=== PATIENT | female | born 1945 | race Caucasian/White ===

== ENCOUNTER 2024-06-18 14:36 | Inpatient (IN) | payer OTHER, SELFPAY ==
[2024-06-18] VITALS (29 sets, daily range): BP systolic 78–145; BP diastolic 33–132
[2024-06-18 12:12] LABS: ALT (SGPT) 27 U/L (0-35); AST (SGOT) 51 U/L (14-36); Albumin 3.1 g/dl (3.5-5.0); Alkaline Phosphatase 244 U/L (38-126); Blood Urea Nitrogen 37 mg/dl (7-17); Carbon Dioxide 23 mmol/L (22-30); Chloride 110 mmol/L (98-107); Glucose 110 mg/dl (70-99); Sodium 142 mmol/L (135-145); Total Bilirubin 0.5 mg/dl (0.2-1.3); Total Protein 6.5 g/dl (6.3-8.2); eGFR 45.76
--- NOTE | 2024-06-18 12:42 | ED.GENMED ---
History of Present Illness
General
Chief Complaint: Vomiting Blood
Source: patient and spouse
Exam Limitations: none
Time Seen by Provider: 06/18/24 12:31
Nursing documentation reviewed up to this point in time: agreed with
History of Present Illness
History of Present Illness:
79-year-old female presents emergency department complaining of vomiting blood and dark black stool. Patient has primary biliary cirrhosis. She is followed at [facility]. She presents via EMS.
Past History
Past History
ED Past Medical History: Hypothyroidism and Other (Primary biliary cirrhosis, GI bleed, Crohn's disease)
Social History
Tobacco: Non-smoker
Alcohol: None
Drug: None
Personal:
Living: with family
Review of Systems
Review of Systems
Allergies reviewed?: Yes
All Other Systems: Not applicable
Constitutional: Reports no symptoms
EENT: Reports no symptoms
Respiratory: Reports no symptoms
Cardiac: Reports no symptoms
ABD/GI: Reports vomiting and black stools
: Reports no symptoms
Musculoskeletal: Reports no symptoms
Skin: Reports no symptoms
Neurological: Reports no symptoms
Endocrine: Reports no symptoms
Hematologic/Lymphatic: Reports no symptoms
Psychiatric: Reports no symptoms
Phy Exam
Physical Exam
Physical Exam:
Physical Exam
General: Hypotension, afebrile
Neck: supple. no meningeal signs. normal posterior pharynx
Heart: s1/s2 regular rate and rhythm, no murmur. equal radial
pulses.
HEENT: Pupils equal round reactive to light, EOMI, pale oral mucous membranes
Lungs: no acute respiratory distress. clear bilaterally
Abdomen: normal bowel sounds. not tender. no CVAT
Neuro: alert and oriented. no focal neurological deficits cranial nerves II through XII intact
Skin: no rash, pale
Psychiatric: well kept. interactive and cooperative
Extremities: no edema. no calf tenderness. negative homans. good distal pulses
Course
Orders/Labs/Results
Orders:
Orders
06/18/24 Lunch
NPO
Allow oral meds: No
Allow clear liquids: No
06/18/24 11:30
Electrocardiogram (*1) Urgent
Reason for Study: Abdominal Pain
EKG- Treatment ONCE
06/18/24 11:41
Type And Crossmatch [Type+Screen] Urgent
Complete Blood Count/With Diff Urgent
Comprehensive Metabolic Panel Urgent
06/18/24 12:41
IV Insert/Care/Rem.- Treatment PRN
0.9% Sodium Chloride 1000 ml [Nss] 1,000 ml IV BOLUS
06/18/24 12:45
ABO2 Urgent
BBK Wristband Number:
Associate notified that ABO2 has been ordered: [id number]
Date: 06/18/24
Time: 12:14
House Painter ID: [id number]
PTT Urgent
Prothrombin Time Urgent
06/18/24 12:49
Octreotide [Sandostatin] 50 mcg IV NOW STA
Pantoprazole 80 mg/100 ml Nss [Protonix] 80 mg in 100 ml IV NOW
Pantoprazole [Protonix IV] 80 mg IV NOW STA
06/18/24 12:56
Octreotide Acetate [Sandostatin] 600 mcg 0.9% Sodium Chloride 500 ml [Nss] 500 ml IV NOW
06/18/24 12:58
Ondansetron Injectable [Zofran] 4 mg IV NOW STA
06/18/24 13:13
Blood Bank Products [* Blood Bank Products] Urgent
'valdemar Orders: 1 unit prbcs
Blood Bank Products: *Packed RBC Leuko(PRBC's)
Quantity: 1
Transfuse Today: Yes
Reason: Bleeding
06/18/24 14:11
Admit/Transfer Patient As Directed
Co-Sign Provider:
Level of Care: Inpatient admission
Assign to:: ICU
Physician / Group: Dr. Savage
Diagnosis: Upper GI Bleed, Primary Biliary Cirrhosis
Reason for Hospitalization: Upper GI bleed, End stage cirrhosis
Expected length of stay greater than two midnights?: Yes
ELOS- Estimated Length of Stay in days: 3
I certify the patient meets the requirements for IP care: Yes
PRN Pain Medication Management As Directed
May give lesser potent ordered pain med per pt: Yes
preference::
Protocol:: Medication orders for pain may be administered in a
manner that supports deferring to patient preference
when the pt is:
- Requesting an ordered lesser potent pain medication.
Least to most potent pain medications are defined
as: acetaminophen < NSAID < tramadol < opioids
(morphine, oxycodone, hydromorphone).
- Requesting a lesser dose of the same medication IF
ORDERED.
- Requesting a less intrusive route of administration
if both routes are prescribed by the provider (PO <
IV).
06/18/24 14:21
Code Status As Directed
Resuscitation Status: Limited DNR
Limited DNR: -No intubation
06/18/24 16:26
H&H Q8H
0.9% Sodium Chloride 1000 ml [Nss] 1,000 ml IV 100 mls/hr
06/18/24 16:26
GASTROINTESTINAL CONSULT Routine
Consulting Provider: Alexander Ashley
Was physician already notified: Yes
Activity As Directed
Activity Level: As Tolerated
INT (Intravenous Needle Therapy) As Directed
Comment: Place 2 IV catheters of the largest bore possible until stable
Orthostatic Vital Signs As Directed
Orthostatic VS Frequency: Now
Comment: then every four hours for twenty-four hours
Pneumatic Compression Sleeves As Directed
Type: Knee high
Vital Signs As Directed
Frequency: Per unit guidelines
DX Deep Vein Thrombosis Video Routine
06/18/24 22:00
Pantoprazole 80 mg/100 ml Nss [Protonix] 80 mg in 100 ml IV Q10H
06/19/24 00:26
H&H Q8H
06/19/24 06:00
Complete Blood Count/With Diff IN AM
Comprehensive Metabolic Panel IN AM
Abnormal Lab Results
06/18/24
11:41
WBC 10.9 H 10^3/uL
(4.8-10.8)
RBC 2.32 L 10^6/uL
(4.20-5.40)
Hgb 6.4 L* g/dL
(12.0-16.0)
Hct 22.4 L %
(37.0-47.0)
MCHC 28.6 L g/dL
(33.0-37.0)
RDW 20.3 H %
(11.5-14.5)
MPV 11.7 H fL
(7.4-10.4)
Abs Immat Gran (auto) 0.1 H 10^3/uL
(0-0.05)
Absolute Neuts (auto) 8.3 H 10^3/uL
(1.4-6.5)
Immature Gran % 0.6 H %
(0-0.5)
Neutrophils % 76.3 H %
(42.2-75.2)
Lymphocytes % 17.0 L %
(20.5-51.1)
Chloride 110 H mmol/L
(98-107)
BUN 37 H mg/dl
(7-17)
Creatinine 1.2 H mg/dL
(0.6-1.0)
Glucose 110 H mg/dl
(70-99)
AST 51 H U/L
(14-36)
Alkaline Phosphatase 244 H U/L
(38-126)
Albumin 3.1 L g/dl
(3.5-5.0)
Crossmatch IS Only See Detail
06/18/24 11:41
06/18/24 11:41
Vital Signs
Initial and Last Documented VS:
Initial Vital Signs
BP
80/42
06/18/24 11:32
Last Documented Vital Signs
Temp Pulse Resp BP Pulse Ox
97.7 F 70 19 131/66 99
06/18/24 16:40 06/18/24 16:37 06/18/24 16:37 06/18/24 16:37 06/18/24 15:30
MDM/Problems Addressed
Differential Diagnosis Includes:
GI bleed, cirrhosis
MDM/Problems Addressed:
79-year-old female with upper GI bleed, end-stage cirrhosis. Anemia. Protonix, packed red blood cells, Zofran, IV fluids and octreotide ordered.
Chronic conditions affecting care: Other (Primary biliary cholangitis)
Acute Exacerbation and/or Progression of Chronic Illness: Other (Primary biliary cholangitis)
*Pulse Oximetry
Patient hypoxic: no
*EKG
Interpreted by ED Provider?: Yes
EKG Intrepretation Date: 06/18/24
EKG Intrepretation Time: 11:34
Interpretation: abnormal
Comparison EKG: no comparison EKG present
Heart Rate: 75
Rate: normal
Rhythm: sinus
[place]: left axis deviation
Interval: normal interval
QRS Pattern: normal QRS
Ischemia: no ischemia
*Tactical Air Control Party Interpretation
Rate: normal
Interpretation: normal
Heart Rate: 74
Rhythm: sinus
*Critical Care Note
Total Time (30-74mins, 75-104mins- exclusive of procedures): 30
comment:
Critical care statement: A total of 30 minutes of critical care time was provided for this patient. This includes management of unstable vital signs, evaluation of the patient at bedside, reviewing the patient's pertinent medical records, discussion
with consultants, review of old EKGs and review of pertinent medical records. This time with separate from time utilized to perform the aforementioned documented procedures but again
Patient Management
Social determinants of health affecting care: Living situation
Discussion with other providers: Hospitalist
Escalation/DeEscalation of care consider admission/obs:
admit indicated
ED Attending Note
-
Portions of this chart may have been created with voice recognition software.� Occasional wrong word or��sound alike� substitutions may have occurred due to the inherent limitations of voice recognition software.
Discharge Plan
Departure
Patient Disposition: Admit
Date of Disposition: 06/18/24
Time of Disposition: 13:02
Admit to: ICU
Presentation/result/management discussed w/ accepting MD/DO: Hospitalist
Patient with high blood pressure during this ER visit?: No
Condition: Fair
Discharge Problem:
Acute upper gastrointestinal bleeding, Primary biliary cholangitis
Interventions
Interventions:
*Risk Screen - Suicide Last Done: 06/18/24 11:33
*General Assessment Last Done: 06/18/24 11:33
*Neglect/Abuse Screening Last Done: 06/18/24 11:33
*ED COVID-19 Vaccine History Last Done: 06/18/24 11:33
*Nursing Disposition Last Done: 06/18/24 16:20
TS-Znrclf-Hhkzozcwtt Assessment Last Done: 06/18/24 12:30
ED- Cardiac Assessment Last Done: 06/18/24 12:30
ED- Pulmonary Assessment Last Done: 06/18/24 12:30
Discharge Date and Time
Discharge Date/Time: 06/18/24 16:21
[2024-06-18] MEDS: NSS 1000 IV ×2 (12:48→17:07)
[2024-06-18 12:57] LABS: % Basophils 0.5 % (0-2); % Eosinophils 0.4 % (0-6); % Immature Granulocytes 0.6 % (0-0.5); % Monocytes 5.2 % (1.7-9.3); % Neutrophils 76.3 % (42.2-75.2); Absolute Basophils 0.1 10^3/uL (0-0.2); Absolute Immature Granulocytes 0.1 10^3/uL (0-0.05); Absolute Lymphocytes 1.9 10^3/uL (1.2-3.4); Absolute Monocytes 0.6 10^3/uL (0.1-0.6); Absolute Neutrophils 8.3 10^3/uL (1.4-6.5); Hematocrit 22.4 % (37.0-47.0); Hemoglobin 6.4 g/dL (12.0-16.0); Mean Corp Hgb Conc. 28.6 g/dL (33.0-37.0); Mean Corpuscular Hgb 27.6 pg (27.0-31.0); Mean Corpuscular Volume 96.6 fL (81.0-99.0); Mean Platelet Volume 11.7 fL (7.4-10.4); Nucleated Red Blood Cells % 0 %; Platelet Count 158 10^3/uL (130-400); Red Blood Cell Count 2.32 10^6/uL (4.20-5.40); Red Cell Dist. Width 20.3 % (11.5-14.5); White Blood Cell Count 10.9 10^3/uL (4.8-10.8)
[2024-06-18 13:05] LABS: INR 1.05
[2024-06-18 13:06] LABS: APTT 26.6 Sec (23.4-35.0)
[2024-06-18 13:12] LABS: Anisocytosis 1+; Hypochromasia 2+; Normal RBC Morphology No; Polychromasia 2+
[2024-06-18 13:13] LABS: Stomatocytes 2+
[2024-06-18] MEDS: PROTONIX 100 IV ×2 (13:16→21:24)
[2024-06-18] MEDS: PROTONIX IV 80 MG IV (13:17)
[2024-06-18] MEDS: ZOFRAN 4 MG IV (13:17)
[2024-06-18] MEDS: SANDOSTATIN 50 MCG IV (13:17)
[2024-06-18] MEDS: SANDOSTATIN 500.6 MCG IV ×2 (13:27→23:43)
--- NOTE | 2024-06-18 15:16 | CON.GI ---
Addendum entered and electronically signed by Alexander Ashley DO 06/18/24 17:13:
I saw and examined the patient.
The CALENDAR CONTROL CLERK BLOOD BANK's note was reviewed and I agree with the note.
Comment: Ms Mccarthy is an 79 y.o female with past medical history of decompensated PBC (records are limited- known to [facility]) with decompensations including ascites, HE, and PHG/GAVE along with hx of pleural effusions (unclear if related to
prior hepatic hydrothorax?), and chronic hypotension (on midodrine) who presented to the ED with hematemesis and melena. Records are very limited however patient underwent a recent EGD 03/2024 where she was found to have oozing after a clip was
placed at the GE junction. There was no reported EV, GV or duodenal varices, only noting PHG and GAVE. Upon discussions with [facility], there were discussions about a possible TIPS but concern about post-TIPS HE. Of note, she was felt not to
be an OLT candidate and follows with Dr. Quiroz. Otherwise, she denies any NSAIDs or antiplatelets/anticoagulants. Denies prior episodes of hematemesis in the past. Otherwise, no other abdominal pain or fevers/chills. She had two episodes of
hematemesis earlier today along with melena. Etiology concerning for variceal UGIB versus bleeding at GE junction (given her prior history although details are unclear regarding this). Labs on admission notable for a MELD 3.0 of 10 and Hgb 6.4 and
plts of 158. Would benefit from an urgent EGD today for further evaluation.
Recommendations:
- Ensure two large bore IVs at all times
- Keep strict NPO
- F/u post-transfusion CBC after 1 uPRBC
- Trend Hgb with serial CBC, avoid over transfusions given hx of cirrhosis
- Obtain daily MELD 3.0 labs- CMP, CBC, INR
- IV PPI gtt x 72 hrs
- IV Octreotide x 72 hrs
- Start IV Ceftriaxone 1 gm q daily
- Give IV Reglan to improve gastric emptying prior to endoscopy to clear stomach
- Plan for urgent EGD later this evening, 06/18/24, for further evaluation
- Avoidance of all antihypertensives and anticoagulants
- Will attempt to obtain OSH records regarding her history of PBC and prior EGDs
- Rest of care as outlined below and as per primary ICU team
Please do not hesitate to call for any further questions. See same day EGD procedure report later this evening for additional findings/recommendations.
Addendum entered and electronically signed by JOHNY Murray 06/18/24 16:07:
I spoke to Graciela Meadows PA-C ([facility]). Patient has Hx of Decompensated Primary Biliary Cirrhosis with hx of Pleural effusions, ascites (not requiring recent paracentesis) and mild hepatic encephalopathy (supposed to be on Xifaxan, as it
was felt that she was too frail to tolerate Lactulose and ambulation). Patient had chronic hypotension with jneed to be on Midodrine. She has a Hx of GIB with Portal Gastropathy, GAVE and 'ooze' with some bleed after clip placed at GE Junction. Last
EDG performed in March at [place]. In the past TIPS was considered however bleeding improved and could increase encephalopathy. Patient is not a transplant candidate. Patient has appointment with Dr. Quiroz next week.
Original Note:
Consultation
-
Date/Time Consultation Requested: 06/18/24 1500
Date/Time Consultation Performed: 06/18/24 1515
Requesting Provider: Dr. Good
Performing Provider: Dr. Ashley/JOHNY Cristina
Reason for Consultation: Upper GI Bleed/PBC
Medical History
Chief Complaint / HPI
Chief Complaint: hematemesis, melena
History of Present Illness:
79 y/o female with PMH of hypothyroid and PBC recently saw Graciela Meadows PA-C at [facility], also followed by Dr. Walls at [facility] who presents to ER with hematemesis and melena. Asked to evaluate for the same. Patient states
that she does not have Crohns disease as documented in ER records. She does admit to prior GI Bleed at [facility] over the summer but does not recall results of this. I am trying to obtain records of this. I have reached out to [facility] and to
Dr. Walls at this time. Patient states that this am she awoke with acute onset of nausea with vomiting of bright red blood followed by multiple episodes of melena. She had nothing to eat or drink today. She denies any F, C, abdominal pain,
dysphagia, odynophagia, early satiety or unintentional weight loss. She is hypotensive currently with BP 74/52. PRBC are currently hanging as is Octreotide and pantoprazole drips. She is not tachycardic as this time. She denies any CP, SOB or
dizziness. WBC 10.9, Hgb 6.4, Hct 22.4, PLT 158, PT 14.0, INR 1.05, Na 142, K+ 5.0, BUN 37, Creat 1.2, Gluc 110, TBili, 0.5, AST 51, ALT 27, ALk Phos, 244. She is admitted to ICU for further care. Plan on EGD today.
Past Medical History
Past Medical History: Hypothyroidism and Other (Primary Biliary Cirrhosis)
Social History
Tobacco: Non-Smoker
Alcohol: None
Drug: None
Personal:
Living: With Family
Family History
Family History: Other (No family hx GI malignancy or IBD)
Allergies / Home Medications
Allergy/AdvReac Type Severity Reaction Status Date / Time
No Known Allergies Allergy Unverified 06/18/24 12:43
�Medication �Instructions �Recorded
Ferrous Glycinate 28 mg PO DAILY 06/18/24
acetaminophen 325 mg tablet 650 mg PO Q4HPRN PRN mild pain 06/18/24
(Tylenol)
calcium 600 mg (as 2 tab PO DAILY 06/18/24
carbonate)-vitamin D3 10 mcg (400
unit) tablet (Calcium 600 + D(3))
carboxymethylcellulose 0.5 1 drp BOTH EYES TID 06/18/24
%-glycerin 0.9 % eye drops
(Refresh Optive)
furosemide 40 mg tablet (Lasix) 40 mg PO DAILY 06/18/24
levocetirizine 5 mg tablet 5 mg PO HS 06/18/24
levothyroxine 75 mcg tablet 75 mcg PO DAILY 06/18/24
(Synthroid)
magnesium oxide 250 mg PO DAILY 06/18/24
midodrine 5 mg tablet 5 mg PO BID 06/18/24
pantoprazole 40 mg tablet,delayed 40 mg PO DAILY 06/18/24
release (Protonix)
ropinirole 1 mg tablet 1 mg PO HS 06/18/24
spironolactone 100 mg tablet 100 mg PO DAILY 06/18/24
therapeutic multivitamin 1 tab PO DAILY 06/18/24
tramadol 50 mg tablet 50 mg PO BIDPRN PRN moderate pains 06/18/24
ursodiol 500 mg tablet 500 mg PO TID 06/18/24
Review of Systems
-
All other systems: A 12 pt ROS was Negative except as stated above in HPI
Vital Signs
Temp Pulse Resp BP Pulse Ox
97.5 F 64 15 93/39 98
06/18/24 14:27 06/18/24 14:27 06/18/24 14:27 06/18/24 14:27 06/18/24 14:27
Physical Exam
Exam
General: No Apparent Distress
HEENT: Anicteric
Respiratory: Clear
Cardiac: Regular Rhythm
GI: Soft, Non Tender, Non Distended and Normal Bowel Sounds
Musculoskeletal: No Edema
Skin: Warm and Dry
Neuro: AO x 3
Psych: Calm
Results
WBC 10.9 10^3/uL (4.8-10.8) H 06/18/24 11:41
Hgb 6.4 g/dL (12.0-16.0) L* 06/18/24 11:41
Hct 22.4 % (37.0-47.0) L 06/18/24 11:41
MCV 96.6 fL (81.0-99.0) 06/18/24 11:41
Plt Count 158 10^3/uL (130-400) 06/18/24 11:41
Absolute Neuts (auto) 8.3 10^3/uL (1.4-6.5) H 06/18/24 11:41
PT 14.0 Sec (11.4-14.6) 06/18/24 12:45
INR 1.05 06/18/24 12:45
APTT 26.6 Sec (23.4-35.0) 06/18/24 12:45
Sodium 142 mmol/L (135-145) 06/18/24 11:41
Potassium 5.0 mmol/L (3.5-5.1) 06/18/24 11:41
Chloride 110 mmol/L (98-107) H 06/18/24 11:41
Carbon Dioxide 23 mmol/L (22-30) 06/18/24 11:41
BUN 37 mg/dl (7-17) H 06/18/24 11:41
Creatinine 1.2 mg/dL (0.6-1.0) H 06/18/24 11:41
Calcium 9.0 mg/dl (8.4-10.2) 06/18/24 11:41
Total Bilirubin 0.5 mg/dl (0.2-1.3) 06/18/24 11:41
AST 51 U/L (14-36) H 06/18/24 11:41
ALT 27 U/L (0-35) 06/18/24 11:41
Alkaline Phosphatase 244 U/L (38-126) H 06/18/24 11:41
Diagnostic Image Results:
Prior GI Procedures:
EGD: Patient states she had EGD at [facility] over the summer.
Colonoscopy: Patient states she had colonoscopy over the summer
Assessment / Plan
-
79 y/o female with PMH of hypothyroid and PBC recently saw Graciela Meadows PA-C at [facility], also followed by Dr. Walls at [facility] who presents to ER with hematemesis and melena. Asked to evaluate for the same. Patient states
that she does not have Crohns disease as documented in ER records. She does admit to prior GI Bleed at [facility] over the summer but does not recall results of this. I am trying to obtain records of this. I have reached out to [facility] and to
Dr. Walls at this time. Patient states that this am she awoke with acute onset of nausea with vomiting of bright red blood followed by multiple episodes of melena.Patient denies any NSAID use. She is on Pantoprazole daily. She is hypotensive
currently with BP 74/52. PRBC are currently hanging as is Octreotide and pantoprazole drips. She is not tachycardic as this time. She denies any CP, SOB or dizziness. WBC 10.9, Hgb 6.4, Hct 22.4, PLT 158, PT 14.0, INR 1.05, Na 142, K+ 5.0, BUN 37,
Creat 1.2, Gluc 110, TBili, 0.5, AST 51, ALT 27, ALk Phos, 244. She is admitted to ICU for further care. Plan on EGD today.
Impression:
Acute Upper GI Bleed
Primary Biliary Cirrhosis
Plan:
-NPO
-Transfuse to keep Hgb > 7
-Continue Octreotide gtt
-Continue Protonix gtt
-Give dose of Reglan 5 mg IV x one to promote gastric clearing
-Ensure 2 large bore IV access at all times
-Give dose Ceftriaxone 1 gm now,
-Will obtain US to eval for ascites tomorrow
-EGD today
-Trend Hgb q 6 hrs.
-Daily CBC, CMP, INR
-Obtain records from [facility], Dr. Walls ( [facility]) and [facility] (Graciela Meadows PA-C)
-Further recommendations to be forthcoming
-
-
Thank you for consultation and allowing me to participate in the patient's care. Please call the auto collision repair instructor GI physician during the after hours with any questions or concerns.
--- NOTE | 2024-06-18 16:50 | PTCARENOTE ---
arrived to ICU via ED stretcher. accompanied. see VS, admission assessment, no bleeding, pt in no acute distress. protonix and sandostatin infusing. 1st unit PC completed. complete CHG bath.
[2024-06-18] MEDS: REGLAN 10 MG IV (17:06)
[2024-06-18] MEDS: STERILE WATER FOR INJECTION 10 ML IV (17:08)
[2024-06-18] MEDS: ROCEPHIN 1000 MG IV (17:08)
--- NOTE | 2024-06-18 17:08 | HPS.HSE ---
Addendum entered and electronically signed by Mackenzie Savage MD 06/18/24 17:54:
I personally performed a history and physical exam of the patient and discussed management with Dr. Cunningham. I reviewed the resident's note and agree with the documented findings and plan of care HPI/CC.
GENERAL: well developed, well nourished, pale appearing female in no apparent distress
HEENT: NC/AT--no O2 in place--pale conjunctiva
HEART: regular rate and rhythm, +S1, +S2
LUNGS : decreased breath sounds bilaterally
ABDOM: soft, nontender, nondistended, + bowel sounds
EXT: no cyanosis, clubbing, or edema
NEUROLOGIC: grossly intact
acute blood loss anemia--likely due to acute GI blood loss-- transfuse 2 units pRBC--admit to ICU--BP 80s systolic (hypotension)--likely runs low with cirrhosis but is responding to IVF (100s systolic)
acute GI blood loss--likely upper with hematemesis and intermittent black stools--? ulcer, varices, etc--NPO/IVF--GI consult--PPI drip, octreotide--EGD as per GI--hold all oral meds
cirrhosis (non-alcoholic) with primary biliary cirrhosis (h/o of Crohn's)--not enough ascites to tap but agree with abx coverage for SBP prophylaxis (rocephin/reglan)--sees hepatology at [place]--has appointment with Dr. Quiroz Tuesday--will not
make--trend LFTs
CKD stage 3--creat baseline unknown as pt never here before--obtain records--hold meds given NPO status--follow with IVF/pRBC
hypothyroid -- holding synthroid for now
DVT proph
code status--LIMITED DNR
Original Note:
Family Physician
-
Family Physician: Dr. Nelson Narayan
Chief Complaint
-
Vomiting and Black Stools
History of Present Illness
This is a 79-year-old female patient with PMH of hypothyroidism primary biliary cholangitis, CKD, hx of pleural effusions, Crohn's disease who presented to the ED with concerns of vomiting and black stools. She states that this morning she had an
episode of vomiting where she had a large amount of blood. She had been having alternating melena along with normal bowel movements for the past 1 year. She admits to having dizziness, nausea and fatigue but no CP, abdominal pain, palpitations or
fevers. She has had similar's symptoms last January where she was admitted initially at [facility]. She states that she had a EGD this year and was not told of any concerns for varices. She currently follows with GI at [facility] (
[facility]).
Medical History
Past Medical History
Past Medical History: Reports Hypothyroidism and Other (CKD, primary biliary cholangitis, Hx of pleural effusion, Crohn's disease)
Past Surgical History: Reports Appendectomy
Social History
Tobacco: Former Smoker (Quit 20 years ago, used to smoke 1 pack a day)
Alcohol: None
Drug: None
Personal:
Living: With Family
Family History
Family History: Other (Mother: Ovarian cancer)
Allergies / Home Medications
Allergies reflects when Allergies were last updated in [employer].
Home Medications with original date entered in [employer]
Allergy/Medication List:
Allergies
Allergy/AdvReac Type Severity Reaction Status Date / Time
No Known Allergies Allergy Unverified 06/18/24 12:43
Home Medications
Ferrous Glycinate 28 mg PO DAILY 06/18/24
acetaminophen 325 mg tablet (Tylenol) 650 mg PO Q4HPRN PRN mild pain 06/18/24
calcium 600 mg (as carbonate)-vitamin D3 10 mcg (400 unit) tablet (Calcium 600 + D(3)) 2 tab PO DAILY 06/18/24
carboxymethylcellulose 0.5 %-glycerin 0.9 % eye drops (Refresh Optive) 1 drp BOTH EYES TID 06/18/24
furosemide 40 mg tablet (Lasix) 40 mg PO DAILY 06/18/24
levocetirizine 5 mg tablet 5 mg PO HS 06/18/24
levothyroxine 75 mcg tablet (Synthroid) 75 mcg PO DAILY 06/18/24
magnesium oxide 250 mg PO DAILY 06/18/24
midodrine 5 mg tablet 5 mg PO BID 06/18/24
pantoprazole 40 mg tablet,delayed release (Protonix) 40 mg PO DAILY 06/18/24
ropinirole 1 mg tablet 1 mg PO HS 06/18/24
spironolactone 100 mg tablet 100 mg PO DAILY 06/18/24
therapeutic multivitamin 1 tab PO DAILY 06/18/24
tramadol 50 mg tablet 50 mg PO BIDPRN PRN moderate pains 06/18/24
ursodiol 500 mg tablet 500 mg PO TID 06/18/24
Review of Systems
-
Constitutional: Denies Fever
EENT: Reports No Symptoms
Respiratory: Reports No Symptoms
Cardiac: Reports No Symptoms
Abdomen/GI: Reports Nausea, Vomiting and Black Stools; Denies Abdominal Pain
: Reports No Symptoms
Musculoskeletal: Denies Edema
Skin: Reports No Symptoms
Neurological: Reports Dizzy; Denies Headache
Psych: Reports Calm
Physical Exam
Vital Signs
Vital Signs
Temp Pulse Resp BP Pulse Ox
97.7 F 70 19 131/66 99
06/18/24 16:37 06/18/24 16:37 06/18/24 16:37 06/18/24 16:37 06/18/24 15:30
Physical Exam
General: No Apparent Distress
HEENT: NormoCephalic
Respiratory: Clear
Cardiac: S1/S2 and Regular Rhythm; No Murmur
GI: Soft, Non Tender and Non Distended
Musculoskeletal: No Edema
Skin: Warm and Dry
Neuro: Awake, Alert and Oriented
Psych: Calm
Laboratory Results
-
06/18/24 11:41
Laboratory Results
PT 14.0 Sec (11.4-14.6) 06/18/24 12:45
INR 1.05 06/18/24 12:45
APTT 26.6 Sec (23.4-35.0) 06/18/24 12:45
Total Bilirubin 0.5 mg/dl (0.2-1.3) 06/18/24 11:41
AST 51 U/L (14-36) H 06/18/24 11:41
ALT 27 U/L (0-35) 06/18/24 11:41
Alkaline Phosphatase 244 U/L (38-126) H 06/18/24 11:41
Impression/Plan
-
IMPRESSION: This is a 79-year-old female patient with PMH of hypothyroidism primary biliary cholangitis, CKD, hx of pleural effusions, Crohn's disease who presented to the ED with concerns of hematemesis and black stools.
PLAN:
#Acute Upper GI Bleed
-NPO
-Maintain two large bore IV
-Continue Pantoprazole gtt
-Continue Octreotide gtt
-Hb 6.4, s/p 1 unit transfused in ED
-Monitor H&H
-Consulted GI
-Ceftriaxone and Reglan initiated as per GI
-Planned for EGD later this evening
-Hold Midodrine
#Cirrhosis-Primary Biliary Cholangitis
-Follows with GI Hepatology at [facility]
-Hold lasix, spironolactone and ursodiol as pt is NPO
-US abd scheduled for tomorrow for ascites assessment
-Elevated AST and ALP
-Tylenol PRN for pain
-Follow CMP
#CKD3a
-Cr 1.2, baseline unknown
#Hypothyroidism
-Hold synthroid as NPO order
DVT: SCDs
CODE: Limited DNR (after discussion with patient and at bedside)
--- NOTE | 2024-06-18 17:10 | CON.INTV ---
Consultation
Consultation Request
Date/Time Consultation Requested: 06/18/2024
Date/Time Consultation Performed: 06/18/2024
Requesting Provider: Dr. Savage
Performing Provider: Dr. Hussein
Reason for Consultation: Acute UGIB
Medical History
-
Chief Complaint: Vomiting blood
History of Present Illness:
79-year-old female with a past medical history of Crohn's disease, PBC, hypothyroidism, HAGAN cirrhosis, CKD and former tobacco use disorder who presents with vomiting blood and black stools. Morning prior to arrival she had an episode of vomiting
where she had a large amount of blood that was seen. She has been having alternating melena along with normal bowel movements for the past year. She has been having dizziness nausea and fatigue but no chest pain and no syncopal episodes. She has
had an EGD earlier this year and was not told that she has any varices. She follows with gastroenterology at [place] with Dr. Quiroz. Initially in the ER she was afebrile to 97.7 �F, pulse rate 72, breathing at 16 breaths/min, BP 80/42 and
saturating 94% on room air. Labs showed leukocytosis to 10.9, anemia to 6.4, INR 1.05, creatinine 1.2, BUN 37, AST 51, and ALP 244. In the ER she was given 1 L NS 0.9%, octreotide, Protonix and 4 mg Zofran. Due to hematemesis she was admitted to
the ICU and Police Service Technician services consulted for additional management/recommendations. Gastroenterology also consulted and she is awaiting an endoscopy later this evening.
When I saw the patient she was resting in bed in no acute distress. Heart rate 76, saturating 97% on room air and BP 102/69. She says she was told she had Crohn's disease from the doctors at [facility]. She says that she has been pooping blood
'lately.' She says her has Crohn's but she does not have a family history of inflammatory bowel disease. She currently denies abdominal pain, nausea, chest pain, SOB, fevers or chills.
PMHx: Primary biliary cirrhosis, reported Hx of Crohn disease, HAGAN, hypothyroidism, CKD, history of pleural effusion, former tobacco use disorder
PShH: Appendectomy
Past Medical History
Past Medical History: Other (Above as per HPI)
Past Surgical History: Other (Above as per HPI)
Social History
Tobacco: Former Smoker (Quit 20 years ago, previously smoked 1 PPD)
Alcohol: None
Drug: None
Personal:
Living: With Family
Family History
Family History: Cancer (Mother: Ovarian cancer)
Allergies / Home Medications
Allergies
Allergy/AdvReac Type Severity Reaction Status Date / Time
No Known Allergies Allergy Unverified 06/18/24 12:43
Home Medications
�Medication �Instructions �Recorded �Confirmed �Last Taken �Type
Ferrous Glycinate 28 mg PO DAILY 06/18/24 06/18/24 06/17/24 History
acetaminophen 325 mg tablet 650 mg PO Q4HPRN PRN mild pain 06/18/24 06/18/24 06/15/24 History
(Tylenol)
calcium 600 mg (as 2 tab PO DAILY 06/18/24 06/18/24 06/17/24 History
carbonate)-vitamin D3 10 mcg (400
unit) tablet (Calcium 600 + D(3))
carboxymethylcellulose 0.5 1 drp BOTH EYES TID 06/18/24 06/18/24 06/17/24 History
%-glycerin 0.9 % eye drops
(Refresh Optive)
furosemide 40 mg tablet (Lasix) 40 mg PO DAILY 06/18/24 06/18/24 06/17/24 History
levocetirizine 5 mg tablet 5 mg PO HS 06/18/24 06/18/24 06/17/24 History
levothyroxine 75 mcg tablet 75 mcg PO DAILY 06/18/24 06/18/24 06/17/24 History
(Synthroid)
magnesium oxide 250 mg PO DAILY 06/18/24 06/18/24 06/17/24 History
midodrine 5 mg tablet 5 mg PO BID 06/18/24 06/18/24 06/17/24 History
pantoprazole 40 mg tablet,delayed 40 mg PO DAILY 06/18/24 06/18/24 06/17/24 History
release (Protonix)
ropinirole 1 mg tablet 1 mg PO HS 06/18/24 06/18/24 Unknown History
spironolactone 100 mg tablet 100 mg PO DAILY 06/18/24 06/18/24 06/17/24 History
therapeutic multivitamin 1 tab PO DAILY 06/18/24 06/18/24 06/17/24 History
tramadol 50 mg tablet 50 mg PO BIDPRN PRN moderate pains 06/18/24 06/18/24 06/16/24 History
ursodiol 500 mg tablet 500 mg PO TID 06/18/24 06/18/24 06/17/24 History
Review of Systems
-
History Source: Patient
All other systems: Negative unless noted
Vitals / Labs / Diagnostic Testing
Vital Signs
Temp Pulse Resp BP Pulse Ox
97.7 F 70 19 131/66 99
06/18/24 16:40 06/18/24 16:37 06/18/24 16:37 06/18/24 16:37 06/18/24 15:30
Lab Data
06/18/24 11:41
Laboratory Results
06/18/24
12:45
PT 14.0
INR 1.05
APTT 26.6
Diagnostic Testing:
Physical Exam
-
HEENT: Normocephalic and Anicteric
Cardiovascular: S1/S2 and Peripheral Edema (negative)
Respiratory: Wheeze (negative), Rales (negative), Rhonchi (negative) and Non-Labored Respirations
GI: Soft, Non Distended and Normal Bowel Sounds
Neurology: AO x 3 and Tremors (negative)
Skin: Warm and Dry
General: Respiratory Distress (negative), Comfortable, Fever (negative), Chills (negative) and Sweats (negative)
Assessment
-
Assessment: 79-year-old female with a past medical history of Crohn's disease, PBC, hypothyroidism, HAGAN cirrhosis, CKD and former tobacco use disorder who presents with vomiting blood and black stools. Morning prior to arrival she had an episode
of vomiting where she had a large amount of blood that was seen. She has been having alternating melena along with normal bowel movements for the past year. She has been having dizziness nausea and fatigue but no chest pain and no syncopal
episodes. She has had an EGD earlier this year and was not told that she has any varices. She follows with gastroenterology at [place] with Dr. Quiroz. Initially in the ER she was afebrile to 97.7 �F, pulse rate 72, breathing at 16 breaths/min,
BP 80/42 and saturating 94% on room air. Labs showed leukocytosis to 10.9, anemia to 6.4, INR 1.05, creatinine 1.2, BUN 37, AST 51, and ALP 244. In the ER she was given 1 L NS 0.9%, octreotide, Protonix and 4 mg Zofran. Due to hematemesis she was
admitted to the ICU and Police Service Technician services consulted for additional management/recommendations. Gastroenterology also consulted and she is awaiting an endoscopy later this evening.
Chronic conditions STEWARD/STEWARDESS SMOKE ROOM: Reported history of primary biliary cirrhosis, Crohn disease, HAGAN, hypothyroidism, CKD, history of pleural effusion, former tobacco use disorder
Impression:
#Acute Upper Gastrointestinal hemorrhage - suspect due to gastric vs duodenal PUD vs AVM vs Dieulafoy's�lesion
#Acute blood loss anemia
#Leukocytosis � likely reactive
#Elevated creatinine likely due to ESTRELLITA (unknown baseline so unable to differentiate between ESTRELLITA versus CKD)
#Transaminitis with elevated AST + ALP
#History of Crohn's disease
#History of primary biliary cirrhosis
#History of CKD
#Former tobacco use disorder (quit 20 years ago, previously smoked 1 PPD)
Plan:
- Large bore IV x2
- NPO
- GI consulted and pt is awaiting EGD; she has already received reglan x 1 to improve endoscopic visualization
- IVF with NS 0.9% at 100cc/hr
- Octreotide gtt + PPI gtt
- Rocephin 1g q24 hrs x 7 days
- Serial CBC to monitor Hb and plt count --> transfuse as needed to keep Hb>7, plt>50k; goal INR<1.8
- Hold all antiplatelet/anticoagulants for now until Hb is stable with no clinical signs of bleeding for at least 72 hours
- She is receiving 1 U PRBC in the ICU, and will receive a total of 2 units with repeat CBC post transfusion
- Maintain MAP>65
- Continue midodrine as this is a home medication
- Hold home antihypertensives for now, can likely resume by tomorrow assuming GI bleed has stabilized
- Trend LFTs
- Continue rifaximin
- She is currently endorsing restless leg syndrome and is requesting rifaximin ---> I will give her a one-time dose given that she is not currently nauseous, no abdominal pain on exam and she is not vomiting blood currently
- Replete electrolytes with K>4, Mg>2
- prn nebulized bronchodilators - not currently bronchospastic
- Stress ulcer ppx with PPI
- DVT ppx: SCDs for now
Critical care statement: A total of 40 minutes of critical care time was provided for this patient today. This includes management of unstable vital signs, evaluation of the patient at bedside, reviewing the patient's pertinent medical records
including radiographs, microbiology, laboratory evaluations, and discussion with primary team, consultants, pharmacy, nutrition, physical therapy, case management, charge nurse, critical care nursing, and respiratory therapy.
--- NOTE | 2024-06-18 18:32 | PTCARENOTE ---
report to GI lab. PC infusing, pink transfusion record in use. transported with all gtts, monitors to GI room 6.
[2024-06-18] MEDS: REQUIP 1 MG PO (20:23)
--- NOTE | 2024-06-18 20:30 | PTCARENOTE ---
Pt admitted to ER vomiting blood. HGB 6.4, 2 units PRBC given. Pt brought to ICU then taken to GI lab on Octreotide/Protonix gtts as ordered. Post GI lab, pt back in ICU bed, remains on Octreotide/Protonix gtts, PRBC finished infusing. Alert and
oriented, no c/o pain or nausea. Afebrile, NSR, BP 120s/60s. Pulses palpable, no edema. Repeat H&H after midnight as ordered. Pt refusing SCDs despite education 2/2 restless legs. 5L nasal cannula, will wean as tolerated. Lungs clear. NPO status
maintaned, aside from restless leg medication. Abdomen soft/nt. Voided in bedside commode. ill monitor.
[2024-06-18] MEDS: MELATONIN 5 MG PO (23:43)
[2024-06-19] VITALS (23 sets, daily range): BP systolic 96–135; BP diastolic 43–93; BMI 16.8
[2024-06-19 00:09] LABS: Hematocrit 27.3 % (37.0-47.0); Hemoglobin 8.6 g/dL (12.0-16.0)
--- NOTE | 2024-06-19 00:30 | PTCARENOTE ---
Pt reassessed. No change in previous assessment. WIll monitor.
[2024-06-19] MEDS: NSS 1000 IV (03:00)
[2024-06-19 04:20] LABS: % Basophils 0.4 % (0-2); % Immature Granulocytes 0.8 % (0-0.5); % Lymphocytes 16.5 % (20.5-51.1); % Monocytes 2.2 % (1.7-9.3); % Neutrophils 80.1 % (42.2-75.2); Absolute Lymphocytes 0.8 10^3/uL (1.2-3.4); Absolute Monocytes 0.1 10^3/uL (0.1-0.6); Hematocrit 25.6 % (37.0-47.0); Mean Corp Hgb Conc. 31.3 g/dL (33.0-37.0); Mean Corpuscular Volume 92.8 fL (81.0-99.0); Mean Platelet Volume 11.6 fL (7.4-10.4); Nucleated Red Blood Cells % 0 %; Platelet Count 90 10^3/uL (130-400); Red Blood Cell Count 2.76 10^6/uL (4.20-5.40); Red Cell Dist. Width 19.2 % (11.5-14.5)
[2024-06-19 04:58] LABS: ALT (SGPT) 24 U/L (0-35); AST (SGOT) 42 U/L (14-36); Albumin 2.7 g/dl (3.5-5.0); Alkaline Phosphatase 188 U/L (38-126); Blood Urea Nitrogen 42 mg/dl (7-17); Calcium 7.6 mg/dl (8.4-10.2); Carbon Dioxide 17 mmol/L (22-30); Chloride 116 mmol/L (98-107); Estimated Creatinine Clearance 23 ml/min; Glucose 129 mg/dl (70-99); Sodium 143 mmol/L (135-145); Total Bilirubin 1.4 mg/dl (0.2-1.3); Total Protein 5.8 g/dl (6.3-8.2); eGFR 38.03
--- NOTE | 2024-06-19 05:47 | PTCARENOTE ---
AM labs sent and pending. No change. WIll monitor.
--- NOTE | 2024-06-19 07:18 | W.PN.HOSP.TC ---
Addendum entered and electronically signed by Mackenzie Savage MD 06/19/24 14:43:
I saw and evaluated the patient independently. I reviewed the resident�s note and agree with findings and plan as documented by Dr. Cunningham.
GENERAL: well developed, well nourished, pale appearing female in no apparent distress
HEENT: NC/AT--no O2 in place
HEART: regular rate and rhythm, +S1, +S2
LUNGS : decreased breath sounds bilaterally
ABDOM: soft, nontender, nondistended, + bowel sounds
EXT: no cyanosis, clubbing, or edema
NEUROLOGIC: grossly intact
acute blood loss anemia--likely due to acute GI blood loss--s/p 2 units pRBC---BP 80s systolic (hypotension), improved--likely runs low with cirrhosis-- HGB down again to 7.6, transfuse 1 more unit
acute GI blood loss--likely upper with hematemesis and intermittent black stools--was NPO/IVF--apprec GI consult--PPI drip, octreotide--EGD without signs of active bleeding
cirrhosis (non-alcoholic) with primary biliary cirrhosis (h/o of Crohn's)--not enough ascites to tap but agree with abx coverage for SBP prophylaxis (rocephin/reglan)--sees hepatology at [place]--has appointment with Dr. Quiroz Tuesday--will not
make--trend LFTs
CKD stage 3--creat baseline unknown as pt never here before--obtain records--hold meds given NPO status, restart as able--follow with IVF/pRBC
hypothyroid -- holding synthroid for now
DVT proph
code status--LIMITED DNR
OK to downgrade from ICU
Original Note:
Today's Communication/Plan
-
Transfuse 1 unit prbc
monitor H&H
downgrade to tele
Assessment / Plan
Assessment / Plan
IMPRESSION: This is a 79-year-old female patient with PMH of hypothyroidism primary biliary cholangitis, CKD, hx of pleural effusions, Crohn's disease who presented to the ED with concerns of hematemesis and black stools.
PLAN:
#Acute Upper GI Bleed
-Maintain two large bore IV
-Continue Pantoprazole IV
-Continue Octreotide gtt
-Hb decreased to 7.6 today, will transfuse another unit
-Monitor H&H Q8
-Consulted GI
-Continue Ceftriaxone for 7 days as per GI and Reglan
-EGD: Grade I and small (< 5 mm) esophageal varices, no banding needed. No evidence of gastric varices
-Continue Midodrine
-Plt count increasing 90-->100
-started on clears, will advance as tolerated
-Pt stable to be downgraded to telemetry
#Hx of pleural effusion
-CXR today: Small right subpulmonic pleural effusion.
#Cirrhosis-Primary Biliary Cholangitis
-Follows with GI Hepatology at [facility]
-Continue lasix, spironolactone and ursodiol
-US abd pending
-Downtrending LFTs
-Tylenol PRN for pain
#CKD3a
-Cr 1.2 on adm increased to 1.4 today, baseline unknown likely due to dehydration
-Monitor CMP
#Hypothyroidism
-Hold synthroid as NPO order
DVT: SCDs
CODE: Limited DNR (after discussion with patient and at bedside)
Anticipated Discharge: 24 - 48 hours
Subjective/Interval History
-
Date of Service: June 19, 2024
Patient states that she had one episode of passing a small amount of dark stool this morning.
Objective Data
-
Labs:
Laboratory Results
06/18/24 06/18/24 06/19/24
16:26 23:50 04:00
WBC 5.0
Hgb Cancelled 8.6 L D Cancelled
Hct Cancelled 27.3 L
Plt Count
Sodium
Potassium
Chloride
Carbon Dioxide
BUN
Creatinine
Glucose
Calcium
Total Bilirubin
AST
ALT
Alkaline Phosphatase
06/19/24 06/19/24
04:00 04:00
WBC
Hgb 8.0 L
Hct Cancelled 25.6 L
Plt Count 90 L D
Sodium 143
Potassium 5.0
Chloride 116 H
Carbon Dioxide 17 L
BUN 42 H
Creatinine 1.4 H
Glucose 129 H
Calcium 7.6 L
Total Bilirubin 1.4 H
AST 42 H
ALT 24
Alkaline Phosphatase 188 H
Vital Signs:
Vital Signs
Temp Pulse Resp BP Pulse Ox
98.9 F 66 14 118/53 99
06/19/24 02:20 06/19/24 07:00 06/19/24 07:00 06/19/24 04:00 06/19/24 07:00
I&O
06/18/24 06/19/24 06/20/24
06:59 06:59 06:59
Intake Total 2323.8 / 2323.8
Output Total 500 / 500
Balance 1823.8 / 1823.8
Review of Systems
-
All other systems: Reviewed and negative
Physical Exam
-
General: Appears in Distress
HEENT: Normocephalic
Respiratory: Clear to Auscultation
Cardiac: Regular Rhythm and S1/S2; Negative Murmur
GI: Soft, Nondistended and Tender (mildly tender in right lower abdomen)
Musculoskeletal: No Edema
Skin: Warm and Dry
Neuro: Awake, Alert and Oriented
Psych: Intact Judgement/Insight
[2024-06-19] MEDS: ProAmatine 5 MG PO ×2 (07:30→21:06)
[2024-06-19] MEDS: XIFAXAN 550 MG PO ×2 (07:30→21:13)
--- NOTE | 2024-06-19 08:15 | PTCARENOTE ---
pt received from previous rn- aox4, nsr on monitor, room air. no complaints at this time. ivf, sandostatin and protonix gtts all continue as per order. supervision to bedside commode. completes am care. ivs c/d/i. all safety precautions in place,
call tucker within reach.
--- NOTE | 2024-06-19 08:32 | W.PN.ANS.POP ---
Anesthesia Post Operative
- Anesthesia Post Op Note
Vital Signs Stable-See Nursing Note: Yes
Airway Patent: Yes
Adequate Pain Control: Yes
Change in Mental Status: No
Current Postoperative Nausea & Vomiting: No
Anesthesia Complications: No
General Anesthetic Recall: No
Unplanned Admission: No
Post Op Hydration Adequate: Yes
--- NOTE | 2024-06-19 10:13 | W.PN.INTV ---
Today's Communication / Plan
Recommendations
Recheck CBC today. Advance diet as tolerated per GI. Continue octreotide gtt, IV protonix q12h, ceftriaxone 1g q24h. Resume home medications. Downgrade to telemetry.
Assessment
-
Assessment: 79-year-old female with a past medical history of Crohn's disease, PBC, hypothyroidism, HAGAN cirrhosis, CKD and former tobacco use disorder who presents with vomiting blood and black stools. Morning prior to arrival she had an episode
of vomiting where she had a large amount of blood that was seen. She has been having alternating melena along with normal bowel movements for the past year. She has been having dizziness nausea and fatigue but no chest pain and no syncopal
episodes. She has had an EGD earlier this year and was not told that she has any varices. She follows with gastroenterology at [facility] with Dr. Quiroz. Initially in the ER she was afebrile to 97.7 �F, pulse rate 72, breathing at 16 breaths/min,
BP 80/42 and saturating 94% on room air. Labs showed leukocytosis to 10.9, anemia to 6.4, INR 1.05, creatinine 1.2, BUN 37, AST 51, and ALP 244. In the ER she was given 1 L NS 0.9%, octreotide, Protonix and 4 mg Zofran. Due to hematemesis she was
admitted to the ICU and [employer] services consulted for additional management/recommendations. Gastroenterology also consulted and endoscopy 06/18/24 showed small grade 1 esophageal varices, mucosal nodule, mild diffuse portal hypertensive
gastropathy; no clear source of bleeding identified.
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
Impression:
#Acute Upper Gastrointestinal hemorrhage
#Acute blood loss anemia
#Leukocytosis � likely reactive
#Elevated creatinine likely due to ESTRELLITA (unknown baseline so unable to differentiate between ESTRELLITA versus CKD)
#Transaminitis with elevated AST + ALP
#Small right pleural effusion
#History of Crohn's disease
#History of primary biliary cirrhosis
#History of CKD
#Former tobacco use disorder (quit 20 years ago, previously smoked 1 PPD)
Plan:
- Maintain large bore IV x2
- Advance diet to clears (no reds). If tolerating PO hydration, discontinue IV fluids.
- Continue Octreotide gtt. Continue IV pantoprazole, change to q12h dosing. Discussed with GI.
- Continue ceftriaxone 1g q24 hrs x 7 days (started 06/18/24)
- Repeat CBC this afternoon to monitor Hb and plt count --> transfuse as needed to keep Hb>7, plt>50k; goal INR<1.8
- Hold all antiplatelet/anticoagulants for now until Hb is stable with no clinical signs of bleeding for at least 72 hours
- s/p 2u pRBC transfusions this admission
- Given that she remains stable and has had no further episodes of hematemesis and no obvious source of ongoing bleeding, she is appropriate for downgrade to telemetry today. Workup and management per primary team and GI. Critical Care will sign off
at this time.
- Maintain MAP>65
- Continue home midodrine
- Trend LFTs
- Continue rifaximin
- Resume home synthroid, magnesium, ropinirole today. Resume home spironolactone, lasix tomorrow.
- Replete electrolytes with K>4, Mg>2
- prn nebulized bronchodilators - not currently bronchospastic
- Stress ulcer ppx with PPI
- DVT ppx: SCDs for now
Code status: Limited DNR (Patient states she would want trial of chest compressions but no intubation- discussed 06/19/24)
Subjective Dataa
Subjective Data
Date of Service:
Date of Service: June 19, 2024
Chief Complaint: [employer] Follow Up
Subjective:
Overnight, no further episodes of hematemesis or melena/hematochezia. She denies lightheadedness, dizziness, palpitations, chest pain, shortness of breath, nausea, vomiting. 1 small formed brown bowel movement, no black/bloody stools, no diarrhea.
NPO. OOB to bedside commode.
Review of Systems
General: Satisfactory Appetite (hungry)
Objective Data
Data Reviewed
Vital Signs / I&O / Oxygen:
Vital Signs
Temp Pulse Resp BP Pulse Ox
97.9 F 64 19 107/49 95
06/19/24 08:18 06/19/24 08:45 06/19/24 08:45 06/19/24 08:14 06/19/24 08:45
Intake and Output
06/18/24 06/19/24 06/20/24
06:59 06:59 06:59
Intake Total 2323.8 / 2475.5 303.4 / 303.4
Output Total 500 / 500
Balance 1823.8 / 1975.5 303.4 / 303.4
SaO2 95
Nasal Cannula flow liters per N/A - on room air this AM
minute
Physical Exam
General: Comfortable
HEENT: Normocephalic and Anicteric
Cardiovascular: S1-S2 and Regular Rhythm
Respiratory: Clear and Non-Labored Respirations
GI: Soft, Non Distended, Flat, Tender (mild TTP right mid abdomen) and Normal Bowel Sounds
Neurology: Awake, Alert and Oriented
Skin: Warm, Dry and Good Color
Labs/Micro/Reports
Lab Data
06/19/24 04:00
06/19/24 04:00
Laboratory Results
06/18/24
12:45
PT 14.0
INR 1.05
APTT 26.6
Care Review
-
Discussed with Clinician: Physician and Nurse
[2024-06-19 11:19] LABS: Hematocrit 24.1 % (37.0-47.0); Hemoglobin 7.6 g/dL (12.0-16.0); Mean Corp Hgb Conc. 31.5 g/dL (33.0-37.0); Mean Corpuscular Hgb 29.5 pg (27.0-31.0); Mean Corpuscular Volume 93.4 fL (81.0-99.0); Mean Platelet Volume 11.1 fL (7.4-10.4); Platelet Count 100 10^3/uL (130-400); Red Blood Cell Count 2.58 10^6/uL (4.20-5.40); Red Cell Dist. Width 19.5 % (11.5-14.5)
[2024-06-19] MEDS: PROTONIX IV (11:30)
[2024-06-19] MEDS: SANDOSTATIN 500.6 MCG IV (12:12)
--- NOTE | 2024-06-19 12:15 | PTCARENOTE ---
pt discussed in rounds- aware of small dark bm this am. repeat hgb 7.6- 1 unit of prbc infusing as per order. protonix gtt and ivf d/c per order. pt and aware of current plan of care, educated, verbalized understanding. assessment
unchanged.
--- NOTE | 2024-06-19 13:23 | W.PN.GI.CBS2 ---
Addendum entered and electronically signed by Alexander Ashley DO 06/19/24 15:57:
I saw and examined the patient.
The PASSENGER BRAKEMAN's note was reviewed and I agree with the note.
Comment: S/p recent EGD on 06/18 as detailed below without any significant old or fresh blood throughout the entire upper examined GI tract. Very small EV which completely flattened with insufflation and not source of patient's presentation.
Potential etiologies including gastric Dieulafoy's lesion (although would have expected to see some underlying submucosal protruding vessel or stigmata of recent bleeding) versus nodule at GE junction (although without any high-risk stigmata or
signs to suggest recent bleeding). Otherwise, patient did have evidence of mild PHG however would not account of her presentation. Regardless, her Hgb has remained stable and without any signs to suggest recurrent upper GI bleeding. In an abundance
of caution, would continue empiric IV Octreotide related to PHG along with IV PPI 40 mg BiD and IV Ceftriaxone given her trace ascites seen on recent US. No plans to perform a repeat endoscopy given her obscure upper GI bleeding and would only
reconsider if recurrent hematemesis, melena, acute worsening anemia or other change in her clinical condition. Will request OSH records as below regarding her prior EGDs as she notes previous bleeding from her GE junction nodule resulting in a
similar presentation back on 03/2024. Agree with resumption of her home diuretics if she continues to remain stable without recurrent GI bleeding. Rest of care as outlined below.
Discussed with primary ICU team. GI team will continue to follow while inpatient. Rest of care as outlined below.
Original Note:
Today's Communication / Plan
-
as per plan
Assessment / Plan
-
Ms Mccarthy is an 79 y.o female with past medical history of decompensated PBC (records are limited- known to [facility]) with decompensations including ascites, HE, and PHG/GAVE along with hx of pleural effusions (unclear if related to prior
hepatic hydrothorax?), and chronic hypotension (on midodrine) who presented to the ED with hematemesis and melena. Records are very limited however patient underwent a recent EGD 03/2024 where she was found to have oozing after a clip was placed at
the GE junction. There was no reported EV, GV or duodenal varices, only noting PHG and GAVE. Upon discussions with [facility], there were discussions about a possible TIPS but concern about post-TIPS HE. Of note, she was felt not to be an OLT
candidate and follows with Dr. Quiroz. Otherwise, she denies any NSAIDs or antiplatelets/anticoagulants. Denies prior episodes of hematemesis in the past. Otherwise, no other abdominal pain or fevers/chills. She had two episodes of hematemesis
earlier today along with melena. Etiology concerning for variceal UGIB versus bleeding at GE junction (given her prior history although details are unclear regarding this). Labs on admission notable for a MELD 3.0 of 10 and Hgb 6.4 and plts of 158.
EGD 06/18/2024 (Dr. Ashley) - Normal proximal esophagus.
- Grade I and small (< 5 mm) esophageal varices. No
banding was performed as these completely flattened
with insufflation.
- Mucosal nodule found in the esophagus at the GE
junction without any signs of active bleeding. No
biopsies were performed given concern for recent upper
GI bleeding.
- Bilious gastric fluid in the stomach. This was
suctioned and cleared.
- Mild, diffuse portal hypertensive gastropathy in the
entire stomach.
- Otherwise, normal stomach on direct and retroflexion
views. No evidence of gastric varices.
- Normal examined duodenum up to the third portion of
the duodenum without any ulcerations, duodenal
varices, or other bleeding lesions.
- The examination was otherwise normal.
- No specimens collected.
Impression:
Acute Upper GI Bleed-> no signs of active bleeding seen on EGD
Primary Biliary Cirrhosis-> decompensated with history of pleural effusions, ascites (not requiring recent paracentesis), and history of mild hepatic encephalopathy (supposed to be on Xifaxan however could not afford it).
Chronic hypotension-> on midodrine
Grade 1 and small less than 5 mm esophageal varices, flattened with insufflation (no banding performed)
Portal hypertensive gastropathy in entire stomach, mild diffuse
Mucosal nodule found in the esophagus at GE junction
Plan:
-Transfuse to keep Hgb > 7
-Continue Octreotide gtt, 48 more hours
-Continue Protonix IV twice daily
-Await results of ultrasound abdomen
-Daily CBC, CMP, INR
-Obtain records from [facility], Dr. Walls ( Digestive) and [facility] (Graciela Meadows PA-C)
-Will need to obtain records from prior EGD 03/2024 given previous concern for prior gastric nodule at the GE junction. Consider EGD/EUS as an outpatient if not previously performed.
-Recommend EGD in 1 year for EV surveillance
-Continue ceftriaxone daily for 6 more days
-On clear liquid diet will likely be able to advance, will need 2 g sodium.
-Continue current medications. To restart Lasix and spironolactone tomorrow.
-Discussed with patient to follow-up with [facility] hepatology. Call them to try to obtain Xifaxan from more cost effective pharmacy.
Subjective
Subjective
Date of Service: June 19, 2024
Patient with no signs of bleeding. Had EGD yesterday normal proximal esophagus. Grade 1 and small less than 5 mm esophageal varices. No banding performed as he is completely flattened with insufflation. Mucosal nodule found in the esophagus at
the GE junction without any signs of active bleeding. No biopsies performed given concern for recent upper GI bleed. Bilious gastric fluid in the stomach. Mild diffuse portal hypertensive gastropathy in the entire stomach. Otherwise normal
stomach. No evidence of gastric varices. Normal examined duodenum up to the third portion. Patient continued on octreotide drip for total 72-hour. Can stop Protonix drip and go down to twice daily dosing. Had a small bowel movement that was
dark brown/black per nursing hemoglobin this morning is 7.6. Up from 6.4 yesterday after 2 units of packed red blood cells. Currently receiving her third unit. Continues on ceftriaxone for SBP prophylaxis. Ultrasound of abdomen to be performed
now. Chest x-ray shows small right subpulmonic pleural effusion. No evidence for pneumonia or acute pulmonary edema. Patient was restarted on midodrine and Xifaxan. Resumed Kathi. Will resume diuretics starting tomorrow. Tolerating clear liquid
diet. Vital signs stable. Patient denies any complaints. Awaiting records from [facility] and [facility]. Discussed with patient and at bedside.
Objective
Data Reviewed
Laboratory Data:
Laboratory Results
06/19/24 11:04
06/19/24 04:00
Laboratory Results
PT 14.0 Sec (11.4-14.6) 06/18/24 12:45
INR 1.05 06/18/24 12:45
APTT 26.6 Sec (23.4-35.0) 06/18/24 12:45
Total Bilirubin 1.4 mg/dl (0.2-1.3) H 06/19/24 04:00
AST 42 U/L (14-36) H 06/19/24 04:00
ALT 24 U/L (0-35) 06/19/24 04:00
Alkaline Phosphatase 188 U/L (38-126) H 06/19/24 04:00
Vital Signs and I&O:
Vital Signs
Temp Pulse Resp BP Pulse Ox
97.4 F 69 18 125/50 96
06/19/24 12:49 06/19/24 12:24 06/19/24 12:24 06/19/24 12:24 06/19/24 12:49
I&O
06/18/24 06/19/24 06/20/24
06:59 06:59 06:59
Intake Total 2323.8 / 2475.5 690.2 / 690.2
Output Total 500 / 500
Balance 1823.8 / 1974.5 690.2 / 690.2
Physical Exam
Physical Exam
HEENT: Anicteric
Cardiology: Normal Sinus Rhythm (Murmur)
Pulmonary: Clear
GI: Soft, Non Distended, Non Tender and Normal Bowel Sounds
Extremities: No Edema
Neuro: Non Focal and Other (No asterixis)
[2024-06-19] MEDS: URSO 500 MG PO ×2 (16:19→21:14)
[2024-06-19] MEDS: REFRESH EYE DROPS (PF) 1 DROPS BOTH EYES ×2 (16:19→21:14)
[2024-06-19] MEDS: ROCEPHIN 1000 MG IV (16:19)
[2024-06-19] MEDS: STERILE WATER FOR INJECTION 10 ML IV (16:19)
[2024-06-19 16:36] LABS: Hematocrit 30.3 % (37.0-47.0); Hemoglobin 9.7 g/dL (12.0-16.0)
--- NOTE | 2024-06-19 17:15 | PTCARENOTE ---
pt sent with all belongings to room 409-1- report given to Rosalind NELSON.
--- NOTE | 2024-06-19 17:30 | CM ---
Patient seen at bedside with physicians in ICU earlier today. Patient states that she lives with her in a ranch style home with no DME. Patient has a walker. Patient PCP Dr. Landeros and [facility] uses [facility] [address]. Patient stated that
she did not have any other concerns and wanted to go home today. CM will continue to follow for discharge planning needs.
Plan; home with VN vs SNF pending medical treatment plan
--- NOTE | 2024-06-19 19:59 | PTCARENOTE ---
patient was received in a wheelchair from the icu with her sandostatin running without any complains of discomfort or pain. patient was alert, oriented x 4 and verbally responsive. patient did not have any behavioral/verbal indicators of discomfort
or pain. patient requested that gi be contacted to upgrade her diet and this charge nurse did tt physician who said that he would upgrade her tomorrow if there is no further bleeding or concerns. patient was made aware and expressed understanding.
patient was oriented to her room, bed controls, television controls and telephone. patient's bed is in the lowest position possible with call tucker within reach
[2024-06-19] MEDS: NSS (PRESERVATIVE FREE) 10 ML IV (21:05)
[2024-06-19] MEDS: PROTONIX IV 40 MG IV (21:05)
[2024-06-19] MEDS: CLARITIN 10 MG PO (21:13)
[2024-06-19] MEDS: REQUIP 1 MG PO (21:14)
[2024-06-19] MEDS: FLUSH (NSS) 2 FLUSH IV (21:17)
[2024-06-19] MEDS: MELATONIN 5 MG PO (22:25)
[2024-06-20] MEDS: SANDOSTATIN 500.6 MCG IV ×2 (00:10→13:09)
[2024-06-20] MEDS: FLUSH (NSS) 1 FLUSH IV ×3 (00:13→17:30)
[2024-06-20 00:53] LABS: Hematocrit 29.5 % (37.0-47.0); Hemoglobin 9.3 g/dL (12.0-16.0)
[2024-06-20 03:21] VITALS: BP 123/62
[2024-06-20] MEDS: SYNTHROID 75 MCG PO (05:13)
--- NOTE | 2024-06-20 06:33 | W.PN.GI.CBS2 ---
Today's Communication / Plan
-
No signs of recurrent upper GI bleeding and H/h remains stable. Continue IV Octreotide gtt for total of 72 hrs along with IV PPI 40 mg BiD and IV Ceftriaxone. Advance diet up to fulls today. See rest of care as outlined below.
Assessment / Plan
-
#Non-variceal UGIB
#Gastric Nodule at GE Junction (hx of prior bleeding s/p clipping 03/2024)
#Mild PHG
#Decompensated PBC
Ms. Mccarthy is an 79 y.o female with past medical history of decompensated PBC (records are limited- known to [facility]) with decompensations including ascites, HE, and PHG/GAVE along with hx of pleural effusions (unclear if related to prior
hepatic hydrothorax?), and chronic hypotension (on midodrine) who presented to the ED with hematemesis and melena. Records are very limited however patient underwent a recent EGD 03/2024 where she was found to have oozing after a clip was placed at
the GE junction. There was no reported EV, GV or duodenal varices, only noting PHG and GAVE. Upon discussions with [facility], there were discussions about a possible TIPS but concern about post-TIPS HE. Of note, she was felt not to be an OLT
candidate and follows with Dr. Quiroz. Otherwise, she denies any NSAIDs or antiplatelets/anticoagulants. Denies prior episodes of hematemesis in the past. Otherwise, no other abdominal pain or fevers/chills. She had two episodes of hematemesis
earlier today along with melena. Etiology concerning for variceal UGIB versus bleeding at GE junction (given her prior history although details are unclear regarding this). Labs on admission notable for a MELD 3.0 of 10 and Hgb 6.4 and plts of 158.
S/p recent EGD on 06/18 without any significant old or fresh blood throughout the entire upper examined GI tract. Very small EV which completely flattened with insufflation and not source of patient's presentation. Potential etiologies including
gastric Dieulafoy's lesion (although would have expected to see some underlying submucosal protruding vessel or stigmata of recent bleeding) versus nodule at GE junction (although without any high-risk stigmata or signs to suggest recent bleeding).
Otherwise, patient did have evidence of mild PHG however would not account of her presentation. Regardless, her Hgb has remained stable and without any signs to suggest recurrent upper GI bleeding. In an abundance of caution, would continue empiric
IV Octreotide related to PHG along with IV PPI 40 mg BiD and IV Ceftriaxone given her trace ascites seen on recent US. No plans to perform a repeat endoscopy given her obscure upper GI bleeding and would only reconsider if recurrent hematemesis,
melena, acute worsening anemia or other change in her clinical condition. Will request OSH records as below regarding her prior EGDs as she notes previous bleeding from her GE junction nodule resulting in a similar presentation back on 03/2024. Agree
with resumption of her home diuretics if she continues to remain stable without recurrent GI bleeding.
Recommendations:
- Ensure two large bore IVs while inpatient
- Advance to full liquids this AM
- Trend daily MELD labs- CMP, CBC, and INR
- Trend Hgb with serial CBC, transfuse for goal Hgb > 7.0
- Continue empiric IV Octreotide gtt x 72 hrs given PHG
- IV PPI 40 mg BiD
- IV Ceftriaxone 1 gm q daily for total of 7 days (06/18 - )
- Still awaiting OSH records from [facility], Dr. Walls ( Dig[facility]) and [facility] (Graciela Meadows PA-C) from prior EGD 03/2024 given previous concern for prior bleeding gastric nodule at the GE junction
- Consider EGD/EUS as an outpatient if not previously performed
- Okay to resume home diuretics with lasix/spironolactone tomorrow after completion of IV Octreotide
- Continue home Ursodiol
- Strict avoidance of all NSIADs
- Discussed importance of close outpatient f/u with her providers both at [place] and [facility] with [facility]
- Rest of care as per primary team
Discussed with primary internal medicine team this AM. GI team will continue to follow. Please call with any questions or concerns.
Subjective
Subjective
Date of Service: June 20, 2024
- S/p 1 uPRBC given Hgb 8.0 -> 7.6 with appropriate correction with repeat Hgb 9.7 -> 9.3 -> 9.8
- Stepped down from ICU on 06/19, otherwise no acute events overnight
Feeling well, resting comfortably in bed. Denies any dark black stools or maroon colored stools. No further episodes of hematemesis or coffee ground emesis since her EGD. Otherwise, no fevers, chills or abdominal pain. Hoping for more solid food
today.
Objective
Data Reviewed
Laboratory Data:
Laboratory Results
PT 14.0 Sec (11.4-14.6) 06/18/24 12:45
INR 1.05 06/18/24 12:45
APTT 26.6 Sec (23.4-35.0) 06/18/24 12:45
Total Bilirubin 1.4 mg/dl (0.2-1.3) H 06/19/24 04:00
AST 42 U/L (14-36) H 06/19/24 04:00
ALT 24 U/L (0-35) 06/19/24 04:00
Alkaline Phosphatase 188 U/L (38-126) H 06/19/24 04:00
Vital Signs and I&O:
Vital Signs
Temp Pulse Resp BP Pulse Ox
97.9 F 82 17 123/62 93
06/20/24 03:21 06/20/24 03:21 06/20/24 03:21 06/20/24 03:21 06/20/24 03:21
I&O
06/18/24 06/19/24 06/20/24
06:59 06:59 06:59
Intake Total 2323.8 / 2475.5 1545.3 / 1545.3
Output Total 500 / 500
Balance 1823.8 / 1975.5 1545.3 / 1545.3
Physical Exam
Physical Exam
HEENT: Anicteric and Moist mucous membranes
Cardiology: Normal Sinus Rhythm
Pulmonary: Clear
GI: Soft, Non Distended and Non Tender
Extremities: No Edema
Neuro: Non Focal and Other (AAOx3; no asterixis)
--- NOTE | 2024-06-20 07:32 | W.PN.HOSP.TC ---
Addendum entered and electronically signed by Mackenzie Savage MD 06/20/24 13:42:
I saw and evaluated the patient independently. I reviewed the resident�s note and agree with findings and plan as documented by Dr. Cunningham.
GENERAL: well developed, well nourished, pale appearing female in no apparent distress
HEENT: NC/AT--no O2 in place
HEART: regular rate and rhythm, +S1, +S2
LUNGS : decreased breath sounds bilaterally
ABDOM: soft, nontender, nondistended, + bowel sounds
EXT: no cyanosis, clubbing, or edema
NEUROLOGIC: grossly intact
acute blood loss anemia--likely due to acute GI blood loss--s/p 3 units pRBC total---BP 80s systolic (hypotension), improved--likely runs low with cirrhosis--
acute GI blood loss--likely upper with hematemesis and intermittent black stools--on solid food--apprec GI consult--PPI drip, octreotide--EGD without signs of active bleeding--nursing reported 'burgundy' stool--NPO after MN, trend H&H
cirrhosis (non-alcoholic) with primary biliary cirrhosis (h/o of Crohn's)--not enough ascites to tap but agree with abx coverage for SBP prophylaxis (rocephin/reglan)--sees hepatology at [place]--has appointment with Dr. Quiroz Tuesday--will not
make--trend LFTs
CKD stage 3--creat baseline unknown as pt never here before (seems as if creat at baseline)--obtain records--hold meds given NPO status, restart as able--follow with IVF/pRBC
hypothyroid -- restart synthroid
DVT proph
code status--LIMITED DNR
Original Note:
Today's Communication/Plan
-
Repeat CBC in afternoon
NPO pMN for possible repeat EGD tomorrow
Hold diurectics
Assessment / Plan
Assessment / Plan
IMPRESSION: This is a 79-year-old female patient with PMH of hypothyroidism primary biliary cholangitis, CKD, hx of pleural effusions, Crohn's disease who presented to the ED with concerns of hematemesis and black stools.
PLAN:
#Acute Upper GI Bleed
-Maintain two large bore IV
-Continue Pantoprazole IV
-Continue Octreotide gtt
-Hb 9.8 today, s/p 2 units since adm
-Consulted GI
-Continue Ceftriaxone for 7 days as per GI and Reglan
-EGD: Grade I and small (< 5 mm) esophageal varices, no banding needed. No evidence of gastric varices
-Continue Midodrine
-Plt count increasing 90-->100
-Diet advanced to 2g sodium as per GI
-Had 2 bowel movements dark brown/burgundy edges
-Discussed with GI, will repeat CBC in afternoon and keep PT on NPO midnight as precaution for possible repeat EGD
#Hx of pleural effusion
-CXR: Small right subpulmonic pleural effusion.
-no SOB
#Cirrhosis-Primary Biliary Cholangitis
-[facility]s [facility]
-Continue ursodiol
-Hold spironolactone and lasix until Octreotide gtt completed
-US abd: mod hep cirrhosis, gallbladder slugde and minimal b/l pleural effusions
-Tylenol PRN for pain
#Restless Leg syndome
-Continue ropinirole
-Pt refusing SCDs due to restless leg symptoms even after discussion of SCDs necessity
#CKD3a
-Cr 1.2 on adm decreased to 1.3 today, baseline unknown due to no hx with DH, likely due to dehydration
-Monitor CMP
#Hypothyroidism
-Continue synthroid
DVT: SCDs (pt is refusing)
CODE: Limited DNR (after discussion with patient and at bedside)
Anticipated Discharge: > 48 hours
Subjective/Interval History
-
Date of Service: June 20, 2024
Patient had one more bowel movement that was dark brown/burgundy edges. No nausea, vomiting present.
Objective Data
-
Labs:
Laboratory Results
06/20/24 06/20/24
00:39 06:00
WBC Pending
Hgb 9.3 L Pending
Hct 29.5 L Pending
Plt Count Pending
Sodium Pending
Potassium Pending
Chloride Pending
Carbon Dioxide Pending
BUN Pending
Creatinine Pending
Glucose Pending
Calcium Pending
Total Bilirubin Pending
AST Pending
ALT Pending
Alkaline Phosphatase Pending
Vital Signs:
Vital Signs
Temp Pulse Resp BP Pulse Ox
97.9 F 82 17 123/62 93
06/20/24 03:21 06/20/24 03:21 06/20/24 03:21 06/20/24 03:21 06/20/24 03:21
I&O
06/19/24 06/20/24 06/21/24
06:59 06:59 06:59
Intake Total 2323.8 / 2475.5 1545.3 / 1545.3 500.4 / 500.4
Output Total 500 / 500
Balance 1823.8 / 1975.5 1545.3 / 1545.3 500.4 / 500.4
Review of Systems
-
All other systems: Reviewed and negative
Physical Exam
-
General: No Apparent Distress
HEENT: Normocephalic
Respiratory: Clear to Auscultation
Cardiac: Regular Rhythm and S1/S2; Negative Murmur
GI: Soft, Nontender and Nondistended
Musculoskeletal: No Edema
Skin: Warm and Dry
Neuro: Awake, Alert and Oriented
Psych: Calm
[2024-06-20 07:50] VITALS: BP 120/52
[2024-06-20] MEDS: MAGNESIUM OXIDE 250 MG PO (09:21)
[2024-06-20] MEDS: XIFAXAN 550 MG PO ×2 (09:22→21:26)
[2024-06-20] MEDS: LASIX 40 MG PO (09:22)
[2024-06-20] MEDS: URSO 500 MG PO ×3 (09:22→21:27)
[2024-06-20] MEDS: REFRESH EYE DROPS (PF) 1 DROPS BOTH EYES ×3 (09:23→21:27)
[2024-06-20] MEDS: ProAmatine 5 MG PO (09:23)
[2024-06-20] MEDS: ALDACTONE 100 MG PO (09:23)
[2024-06-20] MEDS: NSS (PRESERVATIVE FREE) 10 ML IV ×2 (09:24→21:28)
[2024-06-20] MEDS: PROTONIX IV 40 MG IV ×2 (09:24→21:27)
[2024-06-20 09:55] LABS: % Basophils 0.7 % (0-2); % Eosinophils 2.9 % (0-6); % Immature Granulocytes 0.3 % (0-0.5); % Lymphocytes 13.2 % (20.5-51.1); % Monocytes 5.1 % (1.7-9.3); % Neutrophils 77.8 % (42.2-75.2); Absolute Basophils 0.1 10^3/uL (0-0.2); Absolute Eosinophils 0.2 10^3/uL (0-0.7); Absolute Lymphocytes 0.9 10^3/uL (1.2-3.4); Absolute Monocytes 0.4 10^3/uL (0.1-0.6); Absolute Neutrophils 5.3 10^3/uL (1.4-6.5); Hematocrit 30.1 % (37.0-47.0); Hemoglobin 9.8 g/dL (12.0-16.0); Mean Corp Hgb Conc. 32.6 g/dL (33.0-37.0); Mean Corpuscular Hgb 29.1 pg (27.0-31.0); Mean Corpuscular Volume 89.3 fL (81.0-99.0); Nucleated Red Blood Cells % 0 %; Red Blood Cell Count 3.37 10^6/uL (4.20-5.40); Red Cell Dist. Width 19.3 % (11.5-14.5); White Blood Cell Count 6.8 10^3/uL (4.8-10.8)
[2024-06-20 10:02] LABS: ALT (SGPT) 24 U/L (0-35); AST (SGOT) 42 U/L (14-36); Albumin 2.9 g/dl (3.5-5.0); Alkaline Phosphatase 211 U/L (38-126); Blood Urea Nitrogen 35 mg/dl (7-17); Calcium 7.9 mg/dl (8.4-10.2); Carbon Dioxide 16 mmol/L (22-30); Chloride 115 mmol/L (98-107); Estimated Creatinine Clearance 25 ml/min; Glucose 133 mg/dl (70-99); Potassium 4.4 mmol/L (3.5-5.1); Sodium 139 mmol/L (135-145); Total Bilirubin 0.9 mg/dl (0.2-1.3); Total Protein 6.1 g/dl (6.3-8.2); eGFR 41.57
[2024-06-20 10:13] LABS: Mean Platelet Volume 11.1 fL (7.4-10.4); Platelet Count 92 10^3/uL (130-400)
[2024-06-20 11:02] VITALS: BP 115/48
--- NOTE | 2024-06-20 13:25 | CM ---
Patient seen at bedside with physicians and patient . CM provided information on IMM and patient to review with her prior to signing. Patient plan is for possible discharge home tomorrow pending medication changes and medical
treatment plan. CM will continue to follow for discharge planning needs.
Plan; home with no needs anticipated at this time
[2024-06-20 13:34] LABS: % Basophils 0.6 % (0-2); % Eosinophils 2.7 % (0-6); % Immature Granulocytes 0.3 % (0-0.5); % Lymphocytes 14.5 % (20.5-51.1); % Monocytes 4.5 % (1.7-9.3); % Neutrophils 77.4 % (42.2-75.2); Absolute Basophils 0.1 10^3/uL (0-0.2); Absolute Eosinophils 0.2 10^3/uL (0-0.7); Absolute Lymphocytes 1.1 10^3/uL (1.2-3.4); Absolute Monocytes 0.4 10^3/uL (0.1-0.6); Hematocrit 34.5 % (37.0-47.0); Hemoglobin 11.3 g/dL (12.0-16.0); Mean Corp Hgb Conc. 32.8 g/dL (33.0-37.0); Mean Corpuscular Hgb 29.6 pg (27.0-31.0); Mean Corpuscular Volume 90.3 fL (81.0-99.0); Mean Platelet Volume 10.8 fL (7.4-10.4); Nucleated Red Blood Cells % 0 %; Platelet Count 115 10^3/uL (130-400); Red Blood Cell Count 3.82 10^6/uL (4.20-5.40); Red Cell Dist. Width 19.5 % (11.5-14.5); White Blood Cell Count 7.7 10^3/uL (4.8-10.8)
[2024-06-20 15:45] VITALS: BP 128/47
--- NOTE | 2024-06-20 16:29 | PTCARENOTE ---
Pt AAO x3, ASTUDILLO well, OOB to BR with minimal assistance, maribell well, no c/o weakness/dizziness. VSS. Telemetry:NSR. On room air- pulse ox 93%, no c/o SOB. Abd soft, rounded, maribell 2 Gm Na diet; pt aware of NPO past midnight. Voids in BR without
difficulty. IV Sandostatin drip infusing via Lt forearm site @ 41.7 ml/hr without sx of infiltration. Resting in bed at present without c/o. Will continue to monitor.
[2024-06-20] MEDS: ROCEPHIN 1000 MG IV (17:29)
[2024-06-20] MEDS: STERILE WATER FOR INJECTION 10 ML IV (17:30)
[2024-06-20 19:47] VITALS: BP 134/61
[2024-06-20] MEDS: ProAmatine PO (21:25)
[2024-06-20] MEDS: REQUIP 1 MG PO (21:27)
[2024-06-20] MEDS: CLARITIN 10 MG PO (21:27)
[2024-06-20 23:35] VITALS: BP 137/65
[2024-06-21] MEDS: SANDOSTATIN 500.6 MCG IV (00:21)
[2024-06-21 03:41] VITALS: BP 131/55
--- NOTE | 2024-06-21 05:53 | W.PN.GI.CBS2 ---
Today's Communication / Plan
-
No further signs of GI bleeding, needs close outpatient follow-up at [place] with both Transplant Hepatology given her history of decompensated PBC along with GI there given previous concern for bleeding GE junction nodule in the past. Rest of care as
outlined below.
Assessment / Plan
-
#Non-variceal UGIB
#Gastric Nodule at GE Junction (hx of prior bleeding s/p clipping 03/2024)
#Mild PHG
#Decompensated PBC
Ms. Mccarthy is an 79 y.o female with past medical history of decompensated PBC (records are limited- known to [facility]) with decompensations including ascites, HE, and PHG/GAVE along with hx of pleural effusions (unclear if related to prior
hepatic hydrothorax?), and chronic hypotension (on midodrine) who presented to the ED with hematemesis and melena. Records are very limited however patient underwent a recent EGD 03/2024 where she was found to have oozing after a clip was placed at
the GE junction. There was no reported EV, GV or duodenal varices, only noting PHG and GAVE. Upon discussions with [facility], there were discussions about a possible TIPS but concern about post-TIPS HE. Of note, she was felt not to be an OLT
candidate and follows with Dr. Quiroz. Otherwise, she denies any NSAIDs or antiplatelets/anticoagulants. Denies prior episodes of hematemesis in the past. Otherwise, no other abdominal pain or fevers/chills. She had two episodes of hematemesis
earlier today along with melena. Etiology concerning for variceal UGIB versus bleeding at GE junction (given her prior history although details are unclear regarding this). Labs on admission notable for a MELD 3.0 of 10 and Hgb 6.4 and plts of 158.
S/p recent EGD on 06/18 without any significant old or fresh blood throughout the entire upper examined GI tract. Very small EV which completely flattened with insufflation and not source of patient's presentation. Potential etiologies including
gastric Dieulafoy's lesion (although would have expected to see some underlying submucosal protruding vessel or stigmata of recent bleeding) versus nodule at GE junction (although without any high-risk stigmata or signs to suggest recent bleeding).
Otherwise, patient did have evidence of mild PHG however would not account of her presentation. Regardless, her Hgb has remained stable and without any signs to suggest recurrent upper GI bleeding. In an abundance of caution, would continue empiric
IV Octreotide related to PHG along with IV PPI 40 mg BiD and IV Ceftriaxone given her trace ascites seen on recent US. No plans to perform a repeat endoscopy given her obscure upper GI bleeding and would only reconsider if recurrent hematemesis,
melena, acute worsening anemia or other change in her clinical condition. Will request OSH records as below regarding her prior EGDs as she notes previous bleeding from her GE junction nodule resulting in a similar presentation back on 03/2024. Agree
with resumption of her home diuretics if she continues to remain stable without recurrent GI bleeding.
Hgb stable 9.7 -> 9.3 -> 9.8 -> 11.3 -> 11.5 (no recent transfusions, last uPRBC on 06/19) without signs to suggest recurrent GI bleeding
Recommendations:
- Advance diet as tolerated
- Trend daily MELD labs- CMP, CBC, and INR
- Trend Hgb with serial CBC, transfuse for goal Hgb > 7.0
- S/p completion of IV Octreotide
- Continue PPI 40 mg BiD especially given concern for possible bleeding mucosal nodule at GE junction
- IV Ceftriaxone 1 gm q daily for total of 7 days (06/18 - ), may transition to oral abx at discharge
- Unable to obtain prior OSH records from [facility], Dr. Walls ( Digestive) and [facility] (Graciela Meadows PA-C) from prior EGD 03/2024 given previous concern for prior bleeding gastric nodule at the GE junction
- Consider EGD/EUS as an outpatient if not previously performed, she needs close outpatient f/u at [facility] to further discuss this
- Should have a repeat EGD in one year for surveillance of EV given small EV visualized at time of endoscopy and decompensated PBC
- Restart home diuretics with lasix/spironolactone
- Continue home Ursodiol
- Strict avoidance of all NSIADs
- Discussed importance of close outpatient f/u with her providers at [facility]
- Rest of care as per primary team
Discussed with primary internal medicine team this afternoon. GI team will sign off, please call with any questions or concerns.
Subjective
Subjective
Date of Service: June 21, 2024
- Hgb stable 9.7 -> 9.3 -> 9.8 -> 11.3 -> 11.5 (no recent transfusions, last uPRBC on 06/19)
- Otherwise, no acute events overnight
Resting comfortably this AM, had one soft brown BM yesterday evening without any dark stools or blood. Continues to deny any abdominal pain or discomfort.
Objective
Data Reviewed
Laboratory Data:
Laboratory Results
06/20/24 09:26
Laboratory Results
PT 14.0 Sec (11.4-14.6) 06/18/24 12:45
INR 1.05 06/18/24 12:45
APTT 26.6 Sec (23.4-35.0) 06/18/24 12:45
Total Bilirubin 0.9 mg/dl (0.2-1.3) 06/20/24 09:26
AST 42 U/L (14-36) H 06/20/24 09:26
ALT 24 U/L (0-35) 06/20/24 09:26
Alkaline Phosphatase 211 U/L (38-126) H 06/20/24 09:26
Vital Signs and I&O:
Vital Signs
Temp Pulse Resp BP Pulse Ox
98.5 F 70 16 131/55 96
06/21/24 03:41 06/21/24 03:41 06/21/24 03:41 06/21/24 03:41 06/21/24 03:41
I&O
06/19/24 06/20/24 06/21/24
06:59 06:59 06:59
Intake Total 2323.8 / 2475.5 1545.3 / 1545.3 1660.8 / 1660.8
Output Total 500 / 500
Balance 1823.8 / 1975.5 1545.3 / 1545.3 1660.8 / 1660.8
Physical Exam
Physical Exam
HEENT: Anicteric and Moist mucous membranes
Cardiology: Normal Sinus Rhythm
Pulmonary: Other (Normal WOB on room air)
GI: Soft, Non Distended and Non Tender
Extremities: No Edema
Neuro: Non Focal and Other (AAOx3; no asterixis)
[2024-06-21 07:25] VITALS: BP 130/59
--- NOTE | 2024-06-21 07:26 | W.PN.HOSP.TC ---
Addendum entered and electronically signed by Mackenzie Savage MD 06/21/24 11:48:
I saw and evaluated the patient independently. I reviewed the resident�s note and agree with findings and plan as documented by Dr. Cunningham.
GENERAL: well developed, well nourished, pale appearing female in no apparent distress
HEENT: NC/AT--no O2 in place
HEART: regular rate and rhythm, +S1, +S2
LUNGS : decreased breath sounds bilaterally
ABDOM: soft, nontender, nondistended, + bowel sounds
EXT: no cyanosis, clubbing, or edema
NEUROLOGIC: grossly intact
acute blood loss anemia--likely due to acute GI blood loss--s/p 3 units pRBC total---BP 80s systolic (hypotension), improved--likely runs low with cirrhosis
acute GI blood loss--likely upper with hematemesis and intermittent black stools--on solid food--apprec GI consult--PPI drip, octreotide--EGD without signs of active bleeding--nursing reported 'burgundy' stool, most likely old since HGB stable (11.5
on discharge)
cirrhosis (non-alcoholic) with primary biliary cirrhosis (h/o of Crohn's)--not enough ascites to tap but agree with abx coverage for SBP prophylaxis (rocephin/reglan)--sees hepatology at [place]--f/u with Dr. Quiroz
CKD stage 3--creat baseline unknown as pt never here before (seems as if creat at baseline)--obtain records-- restart meds as able
hypothyroid -- restart synthroid
DVT proph
code status--LIMITED DNR
ok for d/c
Original Note:
Today's Communication/Plan
-
Advance diet
discharge pending
Assessment / Plan
Assessment / Plan
IMPRESSION: This is a 79-year-old female patient with PMH of hypothyroidism primary biliary cholangitis, CKD, hx of pleural effusions, Crohn's disease who presented to the ED with concerns of hematemesis and black stools.
PLAN:
#Acute Upper GI Bleed
-Maintain two large bore IV
-Continue Pantoprazole IV
-Continue Octreotide gtt
-Hb 11.5 today, s/p 2 units since adm
-Consulted GI
-Continue Ceftriaxone for 7 days as per GI and Reglan
-EGD: Grade I and small (< 5 mm) esophageal varices, no banding needed. No evidence of gastric varices
-Continue Midodrine
-Diet advanced to 2g sodium as per GI
-F/u with [facility] GI outpatient
-Dispo to home pending
#Hx of pleural effusion
-CXR: Small right subpulmonic pleural effusion.
-no SOB
#Cirrhosis-Primary Biliary Cholangitis
-Follows with GI Hepatology at [facility]
-Continue ursodiol
-Discontinue Octreotide, restart diuretics
-US abd: mod hep cirrhosis, gallbladder slugde and minimal b/l pleural effusions
-Tylenol PRN for pain
#Restless Leg syndome
-Continue ropinirole
-Pt refusing SCDs due to restless leg symptoms even after discussion of SCDs necessity
#CKD3a
-Cr 1.2 on adm, baseline unknown due to no hx with DH, likely due to dehydration
-Monitor CMP
#Hypothyroidism
-Continue synthroid
DVT: SCDs (pt is refusing)
CODE: Limited DNR (after discussion with patient and at bedside)
Anticipated Discharge: Within 24 hours
Subjective/Interval History
-
Date of Service: June 21, 2024
Patient is feeling well and has not had a bloody BM today and denies any nausea, vomiting or diarrhea.
Objective Data
-
Labs:
Laboratory Results
06/21/24
07:16
WBC Pending
Hgb Pending
Hct Pending
Plt Count Pending
Vital Signs:
Vital Signs
Temp Pulse Resp BP Pulse Ox
98.5 F 70 16 131/55 96
06/21/24 03:41 06/21/24 03:41 06/21/24 03:41 06/21/24 03:41 06/21/24 03:41
I&O
06/20/24 06/21/24 06/22/24
06:59 06:59 06:59
Intake Total 1545.3 / 1545.3 2140.8 / 2140.8
Balance 1545.3 / 1545.3 2140.8 / 2140.8
Review of Systems
-
All other systems: Reviewed and negative
Physical Exam
-
General: No Apparent Distress
HEENT: Normocephalic
Respiratory: Clear to Auscultation
Cardiac: Regular Rhythm and S1/S2; Negative Murmur
GI: Soft, Nontender and Nondistended
Musculoskeletal: No Edema
Skin: Warm and Dry
Neuro: Awake, Alert and Oriented
Psych: Calm
[2024-06-21 08:21] LABS: % Basophils 0.5 % (0-2); % Eosinophils 3.1 % (0-6); % Immature Granulocytes 0.4 % (0-0.5); % Lymphocytes 24.8 % (20.5-51.1); % Monocytes 6.9 % (1.7-9.3); % Neutrophils 64.3 % (42.2-75.2); Absolute Eosinophils 0.2 10^3/uL (0-0.7); Absolute Lymphocytes 1.9 10^3/uL (1.2-3.4); Absolute Monocytes 0.5 10^3/uL (0.1-0.6); Absolute Neutrophils 4.9 10^3/uL (1.4-6.5); Hematocrit 35.2 % (37.0-47.0); Hemoglobin 11.5 g/dL (12.0-16.0); Mean Corp Hgb Conc. 32.7 g/dL (33.0-37.0); Mean Corpuscular Hgb 29.2 pg (27.0-31.0); Mean Corpuscular Volume 89.3 fL (81.0-99.0); Mean Platelet Volume 11.4 fL (7.4-10.4); Nucleated Red Blood Cells % 0 %; Platelet Count 120 10^3/uL (130-400); Red Blood Cell Count 3.94 10^6/uL (4.20-5.40); Red Cell Dist. Width 19.3 % (11.5-14.5); White Blood Cell Count 7.6 10^3/uL (4.8-10.8)
[2024-06-21 08:37] LABS: ALT (SGPT) 25 U/L (0-35); AST (SGOT) 43 U/L (14-36); Albumin 3.4 g/dl (3.5-5.0); Alkaline Phosphatase 248 U/L (38-126); Blood Urea Nitrogen 28 mg/dl (7-17); Calcium 8.2 mg/dl (8.4-10.2); Carbon Dioxide 21 mmol/L (22-30); Chloride 110 mmol/L (98-107); Estimated Creatinine Clearance 25 ml/min; Glucose 107 mg/dl (70-99); Sodium 140 mmol/L (135-145); Total Bilirubin 1.1 mg/dl (0.2-1.3); Total Protein 6.9 g/dl (6.3-8.2); eGFR 41.57
--- NOTE | 2024-06-21 09:08 | W.DCSUMMARY ---
Addendum entered and electronically signed by Mackenzie Savage MD 06/21/24 15:30:
Read, reviewed, and agree. See same day progress note for additional details. Time spent coordinating care, DC planning, review of DC plan of care with resident, transition of care, review of records in EMR, med rec, consults, notes, d/w
consultants, nursing, family, and CM = 21 minutes.
Correction to below--pt has primary biliary cirrhosis--NOT primary biliary cholangitis
Original Note:
Documented by User: Miryam Cunningham MD, Resident 06/21/24 11:48
Discharge Summary
Discharge Data
Date of Admission: 06/18/24
Date of Discharge: 06/21/24
-
Pending Results: No
Hospital Course
Discharging Physician : Dr. Savage,
Disposition : Home
Primary care physician : Dr. Nelson Narayan
Principal Discharge diagnosis : Upper GI Bleed
Chronic Discharge diagnosis : CKD, primary biliary cholangitis, Hx of pleural effusion, Crohn's disease
Hospital Course : This is a 79-year-old female patient with PMH of hypothyroidism primary biliary cholangitis, CKD, hx of pleural effusions, Crohn's disease who presented to the ED with concerns of hematemesis and black stools. She had 2 large-bore
IVs, IV pantoprazole and octreotide started in the ED. Her initial hemoglobin was 6.4 and was given 2 units PRBC. Home diuretics were held. GI was consulted and had also started her on IV ceftriaxone. She was maintained on n.p.o. and taken for
EGD which showed grade 1 esophageal varices which were nonactive with a mucosal nodule at the GE junction which was also not actively bleeding. She was initially hypotensive and was started on IV fluids which she was responding to. Her diet was
advanced as tolerated. Repeat hemoglobin showed improvement. She later had 2 bowel movements that were dark brown/burgundy edges and was put on n.p.o. as a precaution. Stool was thought to be due to result of old bleeding since she had stable H&H.
She was then taken off of IV octreotide and diuretics were restarted. CXR showed small right subpulmonic pleural effusion and patient had no concerns of shortness of breath. Other chronic conditions are stable. Patient had no further episodes of
hematemesis and was hemodynamically stable for discharge to home. She is advised to follow-up with outpatient [facility] and finish her antibiotic course (for a full 7 day course from adm).
Important imaging findings :
US abd Doppler 06/19: 1. MODERATE HEPATIC CIRRHOSIS.
2. Minimal perihepatic ascites.
3. Gallbladder sludge.
4. No sonographic evidence for portal or hepatic vein thrombosis.
5. Moderate scarring in the upper pole of the right kidney.
6. Small right and minimal left pleural effusions.
CXR 06/19: 1. Small right subpulmonic pleural effusion.
2. No radiographic evidence for pneumonia or acute pulmonary edema.
Procedure findings :
EGD 06/18: Grade I and small (< 5 mm) esophageal varices. No banding was performed as these completely flattened with insufflation. Mucosal nodule found in the esophagus at the GE junction without any signs of active bleeding. No biopsies were
performed given concern for recent upper GI bleeding. Recommend repeat EGD in 1 year for EV surveillance
Discharge Plan
-
Patient Disposition: Home (Routine Discharge)
Discharge Diagnosis/Procedures: Upper GI Bleed, Chronic Kidney Disease, primary biliary cholangitis, History of pleural effusion, Crohn's disease
Diet: 2 Gram Sodium
Activity: As tolerated
Driving Restrictions: As prior to admission
Activity Restrictions/Additional Instructions:
If experiencing symptoms such as worsening bloody vomiting, high grade fevers or abdominal pain please return to the hospital. Take antibiotic for the next 4 days as prescribed. Follow up with GI [facility] in 1 week for further management.
Referrals:
Nelson Narayan, DO [Non-Admitting Privileges] - in less than 1 week
Prescriptions:
New
ciprofloxacin HCl 500 mg tablet
500 mg PO BID 4 Days Qty: 8 0RF
Continued
ropinirole 1 mg Tablet
1 mg PO HS
furosemide [Lasix] 40 mg Tablet
40 mg PO DAILY
acetaminophen [Tylenol] 325 mg Tablet
650 mg PO Q4HPRN PRN (Reason: mild pain)
spironolactone 100 mg Tablet
100 mg PO DAILY
midodrine 5 mg Tablet
5 mg PO BID
therapeutic multivitamin Tablet
1 tab PO DAILY
tramadol 50 mg Tablet
50 mg PO BIDPRN PRN (Reason: moderate pains)
levothyroxine [Synthroid] 75 mcg Tablet
75 mcg PO DAILY
pantoprazole [Protonix] 40 mg Tablet,Delayed Release (Dr/Ec)
40 mg PO DAILY
magnesium oxide 250 mg magnesium Tablet
250 mg PO DAILY
ursodiol 500 mg Tablet
500 mg PO TID
calcium carbonate-vitamin D3 [Calcium 600 + D(3)] 600 mg-10 mcg (400 unit) Tablet
2 tab PO DAILY
Refresh Optive 0.5-0.9 % Drops
1 drp BOTH EYES TID
levocetirizine 5 mg Tablet
5 mg PO HS
Ferrous Glycinate
28 mg PO DAILY
Discharge Orders:
Discharge Patient (As Directed); Ordered 06/21/24
Ordered By: Miryam Cunningham
Discharge Date and Time
Print Language: SPANISH

Documented by User: Mackenzie Savage MD 06/21/24 11:48
Discharge Summary
Discharge Data
Date of Admission: 06/18/24
Date of Discharge: 06/21/24
Discharge Plan
-
Patient Disposition: Home (Routine Discharge)
Discharge Diagnosis/Procedures: Upper GI Bleed, Chronic Kidney Disease, primary biliary cholangitis, History of pleural effusion, Crohn's disease
Diet: 2 Gram Sodium
Activity: As tolerated
Driving Restrictions: As prior to admission
Activity Restrictions/Additional Instructions:
If experiencing symptoms such as worsening bloody vomiting, high grade fevers or abdominal pain please return to the hospital. Take antibiotic for the next 4 days as prescribed. Follow up with GI [facility] in 1 week for further management.
Referrals:
Nelson Narayan, DO [Non-Admitting Privileges] - in less than 1 week
Prescriptions:
New
ciprofloxacin HCl 500 mg tablet
500 mg PO BID 4 Days Qty: 8 0RF
Continued
ropinirole 1 mg Tablet
1 mg PO HS
furosemide [Lasix] 40 mg Tablet
40 mg PO DAILY
acetaminophen [Tylenol] 325 mg Tablet
650 mg PO Q4HPRN PRN (Reason: mild pain)
spironolactone 100 mg Tablet
100 mg PO DAILY
midodrine 5 mg Tablet
5 mg PO BID
therapeutic multivitamin Tablet
1 tab PO DAILY
tramadol 50 mg Tablet
50 mg PO BIDPRN PRN (Reason: moderate pains)
levothyroxine [Synthroid] 75 mcg Tablet
75 mcg PO DAILY
pantoprazole [Protonix] 40 mg Tablet,Delayed Release (Dr/Ec)
40 mg PO DAILY
magnesium oxide 250 mg magnesium Tablet
250 mg PO DAILY
ursodiol 500 mg Tablet
500 mg PO TID
calcium carbonate-vitamin D3 [Calcium 600 + D(3)] 600 mg-10 mcg (400 unit) Tablet
2 tab PO DAILY
Refresh Optive 0.5-0.9 % Drops
1 drp BOTH EYES TID
levocetirizine 5 mg Tablet
5 mg PO HS
Ferrous Glycinate
28 mg PO DAILY
Discharge Orders:
Discharge Patient (As Directed); Ordered 06/21/24
Ordered By: Miryam Cunningham
Discharge Date and Time
Print Language: SPANISH
[2024-06-21] MEDS: SYNTHROID PO (10:22)
[2024-06-21] MEDS: XIFAXAN 550 MG PO (10:24)
[2024-06-21] MEDS: MAGNESIUM OXIDE 250 MG PO (10:24)
[2024-06-21] MEDS: URSO 500 MG PO (10:24)
[2024-06-21] MEDS: ProAmatine PO (10:25)
[2024-06-21] MEDS: PROTONIX IV 40 MG IV (10:26)
[2024-06-21] MEDS: NSS (PRESERVATIVE FREE) 10 ML IV (10:26)
[2024-06-21] MEDS: REFRESH EYE DROPS (PF) BOTH EYES (10:34)
[2024-06-21 11:26] VITALS: BP 144/59
--- NOTE | 2024-06-21 11:55 | CM ---
CM met with Dottie and her . Dottie reviewed the IMM and shared with her . IMM signed and placed on chart. She declined another copy at this time.
Plan: Discharge to home with no identified needs.
== END 2024-06-21 14:19 | disposition home or self-care (01) | DRG 378 ==
LOC: 4 EAST ACU 14:36
PROVIDERS: Emergency Medicine; Internal Medicine Critical Care Medicine; Nurse Practitioner Primary Care; Student in an Organized Health Care Education/Training Program; ADMITTING PHYSICIAN Internal Medicine; CONSULT PHYSICIAN Student in an Organized Health Care Education/Training Program; EMERGENCY PHYSICIAN Emergency Medicine
PROC: 0DJ08ZZ Inspection of Upper Intestinal Tract, Via Natural or Artificial Opening Endoscopic (ICD-10-PCS; 2024-06-18)
PROC: 30233N1 Transfusion of Nonautologous Red Blood Cells into Peripheral Vein, Percutaneous Approach (ICD-10-PCS; 2024-06-18)
DX: K92.2 Gastrointestinal hemorrhage, unspecified (principal); D62 Acute posthemorrhagic anemia; K76.6 Portal hypertension; N17.9 Acute kidney failure, unspecified; K50.919 Crohn's disease, unspecified, with unspecified complications; I85.00 Esophageal varices without bleeding; K31.89 Other diseases of stomach and duodenum; N18.31 Chronic kidney disease, stage 3a; E03.9 Hypothyroidism, unspecified; K74.3 Primary biliary cirrhosis
CPT/HCPCS: 71045; 76700; 80053; 85014; 85018; 85025; 85027; 85610; 85730; 86850; 86900; 86901; 86920; 93005; 93975; 96361; 96374; 96375; 99291; P9016

== ENCOUNTER 2024-07-06 00:09 | Inpatient (IN) | payer OTHER, SELFPAY ==
[2024-07-05 21:29] VITALS: BP 97/41
[2024-07-05 22:03] LABS: % Basophils 0.7 % (0-2); % Eosinophils 2.8 % (0-6); % Immature Granulocytes 0.4 % (0-0.5); % Lymphocytes 21.4 % (20.5-51.1); % Monocytes 6.7 % (1.7-9.3); Absolute Eosinophils 0.2 10^3/uL (0-0.7); Absolute Lymphocytes 1.2 10^3/uL (1.2-3.4); Absolute Monocytes 0.4 10^3/uL (0.1-0.6); Absolute Neutrophils 3.9 10^3/uL (1.4-6.5); Hematocrit 19.9 % (37.0-47.0); Hemoglobin 6.1 g/dL (12.0-16.0); Mean Corp Hgb Conc. 30.7 g/dL (33.0-37.0); Mean Corpuscular Hgb 29.2 pg (27.0-31.0); Mean Corpuscular Volume 95.2 fL (81.0-99.0); Mean Platelet Volume 11.2 fL (7.4-10.4); Nucleated Red Blood Cells % 0 %; Platelet Count 169 10^3/uL (130-400); Red Blood Cell Count 2.09 10^6/uL (4.20-5.40); Red Cell Dist. Width 17.4 % (11.5-14.5); White Blood Cell Count 5.7 10^3/uL (4.8-10.8)
[2024-07-05 22:04] LABS: PT 12.6 Sec (11.4-14.6)
[2024-07-05 22:05] LABS: APTT 28.1 Sec (23.4-35.0)
[2024-07-05 22:08] LABS: ALT (SGPT) 41 U/L (0-35); AST (SGOT) 75 U/L (14-36); Albumin 3.1 g/dl (3.5-5.0); Alkaline Phosphatase 425 U/L (38-126); Blood Urea Nitrogen 28 mg/dl (7-17); Calcium 8.7 mg/dl (8.4-10.2); Carbon Dioxide 18 mmol/L (22-30); Chloride 115 mmol/L (98-107); Glucose 117 mg/dl (70-99); Potassium 4.3 mmol/L (3.5-5.1); Sodium 142 mmol/L (135-145); Total Bilirubin 0.3 mg/dl (0.2-1.3); Total Protein 6.4 g/dl (6.3-8.2)
--- NOTE | 2024-07-05 22:16 | ED.GENMED ---
History of Present Illness
General
Chief Complaint: Abnormal Lab Value
Source: patient, spouse and family
Exam Limitations: none
Time Seen by Provider: 07/05/24 22:02
Nursing documentation reviewed up to this point in time: agreed with
History of Present Illness
History of Present Illness:
This a pleasant 79-year-old female that presents with gastrointestinal bleeding. She states that she was just discharged from the hospital several weeks ago for identical complaint. She states that she has been having dark maroon and tarry stools
as well as vomiting up some blood for the last few days. She had outpatient blood work which resulted this morning and showed her hemoglobin was 6.3. She came right into the hospital for transfusion. Patient states that she has had increased
shortness of breath
Vital signs are stable. Patient not hypoxic
Nursing note reviewed. I agree with nursing documentation up to this point in time.
Home Meds and allergies reviewed.
NUMBER AND COMPLEXITY OF PROBLEMS ADDRESSED AT THE ENCOUNTER
� Chronic conditions affecting care: Decompensated PBC, with history of ascites, pleural effusions, chronic hypotension which is treated with midodrine.
� Acute Exacerbation and/or Progression of Chronic Illness:
� Differential Diagnosis includes:
AMOUNT AND/OR COMPLEXITY OF DATA TO BE REVIEWED AND ANALYZED
I performed an independent evaluation of the following and my interpretation is:
EKG:
Pulse Ox: Not Hypoxic
Ski Molder: Sinus Rhythm
CT:
X-rays:
Ultrasound:
Laboratory Studies: H&H of 6.1/19.9 down from 11.5 and 35.2
Other:
Review of other/old records: EGD from 06/18/2024
Impression: - Normal proximal esophagus.
- Grade I and small (< 5 mm) esophageal varices. No
banding was performed as these completely flattened
with insufflation.
- Mucosal nodule found in the esophagus at the GE
junction without any signs of active bleeding. No
biopsies were performed given concern for recent upper
GI bleeding.
- Bilious gastric fluid in the stomach. This was
suctioned and cleared.
- Mild, diffuse portal hypertensive gastropathy in the
entire stomach.
- Otherwise, normal stomach on direct and retroflexion
views. No evidence of gastric varices.
- Normal examined duodenum up to the third portion of
the duodenum without any ulcerations, duodenal
varices, or other bleeding lesions.
- The examination was otherwise normal.
- No specimens collected.
Clinical information was obtained by an independent historian: Daughter who is present at the bedside, significant other
Prescriptions/Medications Considered but not given:
Further testing considered but not performed: Imaging deferred
RISK OF COMPLICATIONS AND/OR MORBIDITY OR MORTALITY OF PATIENT MANAGEMENT
Social determinants of health affecting care: Good Social Support
Discussion with other providers: Dr. Agnes Tatum aware of patient. Hospitalist agreed to accept her on his service.
Escalation of care including admission/observation vs risk of discharge considered: After being observed in the emergency department, patient is not stable for discharge. She will be admitted to the ICU
Critical care statement: A total of 30 minutes of critical care time was provided for this patient. This time is separate from time utilized to perform the aforementioned documented procedures. Aggregate critical care time includes only time
during which I was engaged in work directly related to the patient's care, as described above, whether at the bedside or elsewhere in the Emergency Department.
Update:
Past History
Past History
ED Past Medical History: Hypothyroidism and Other (Primary biliary cirrhosis, GI bleed, Crohn's disease)
Social History
Tobacco: Non-smoker
Alcohol: None
Drug: None
Personal:
Living: with family
Review of Systems
Review of Systems
Allergies reviewed?: Yes
Other source history: family
All Other Systems: ROS reviewed and negative except as documented in HPI and ROS
Constitutional: Reports no symptoms
EENT: Reports no symptoms
Respiratory: Reports trouble breathing
Cardiac: Reports no symptoms
ABD/GI: Reports nausea, vomiting, bloody stools and black stools
: Reports no symptoms
Musculoskeletal: Reports no symptoms
Skin: Reports no symptoms
Neurological: Reports no symptoms
Endocrine: Reports no symptoms
Hematologic/Lymphatic: Reports no symptoms
Psychiatric: Reports no symptoms
Phy Exam
General Physical Exam
General Presentation: well appearing and mild distress
General Skin: warm and pale
General Habitus: normal
General Mental: alert
General Hydration: appears well hydrated
ENT Exam
ENT Exam: EOMI, pharynx normal, neck supple and normocephalic
Eye Exam
Eye Exam: PERRL, cornea clear and conjunctiva normal
Cardiovascular Exam
Cardiovascular Exam: regular rate/rhythm, no edema, no murmur and normal peripheral pulses
Pulmonary Exam
Pulmonary Exam: lungs clear, no respiratory distress, no rales, no crackles, no rhonchi, no stridor, no wheezing and no cough
Gastrointestinal Exam
Gastrointestinal Exam: normal bowel sounds, non tender, soft, no organomegaly, no pulsatile mass and non distended
Neurological Exam
Neurological Exam: alert, oriented x3, no motor deficits and speech normal
Musculoskeletal Exam
Musculoskeletal Exam: full ROM and no edema
Skin Exam
Skin Exam: normal color, warm/dry, no rash and no petechia
Psychiatric Exam
Psychiatric Exam: normal mood/affect
Course
Orders/Labs/Results
Orders:
Orders
07/05/24 21:32
IV Insert/Care/Rem.- Treatment PRN
07/05/24 21:42
Type+Screen Urgent
Complete Blood Count/With Diff Urgent
Comprehensive Metabolic Panel Urgent
PTT Urgent
Prothrombin Time Urgent
07/05/24 22:14
* Blood Bank Products Urgent
Blood Bank Products: *Packed RBC Leuko(PRBC's)
Quantity: 2
Transfuse Today: Yes
Reason: Bleeding
07/05/24 22:18
Octreotide [Sandostatin] 50 mcg IV NOW STA
Pantoprazole 80 mg/100 ml Nss [Protonix] 80 mg in 100 ml IV NOW
Pantoprazole [Protonix IV] 80 mg IV NOW STA
07/05/24 22:19
IV Insert/Care/Rem.- Treatment PRN
07/05/24 22:24
0.9% Sodium Chloride 1000 ml [Nss] 1,000 ml IV BOLUS
Abnormal Lab Results
07/05/24
21:42
RBC 2.09 L 10^6/uL
(4.20-5.40)
Hgb 6.1 L* g/dL
(12.0-16.0)
Hct 19.9 L* %
(37.0-47.0)
MCHC 30.7 L g/dL
(33.0-37.0)
RDW 17.4 H %
(11.5-14.5)
MPV 11.2 H fL
(7.4-10.4)
Chloride 115 H mmol/L
(98-107)
Carbon Dioxide 18 L mmol/L
(22-30)
BUN 28 H mg/dl
(7-17)
Creatinine 1.1 H mg/dL
(0.6-1.0)
Glucose 117 H mg/dl
(70-99)
AST 75 H U/L
(14-36)
ALT 41 H U/L
(0-35)
Alkaline Phosphatase 425 H U/L
(38-126)
Albumin 3.1 L g/dl
(3.5-5.0)
07/05/24 21:42
07/05/24 21:42
Vital Signs
Initial and Last Documented VS:
Initial Vital Signs
Temp Pulse Resp BP Pulse Ox
97.3 F 74 20 97/41 91
07/05/24 21:29 07/05/24 21:29 07/05/24 21:29 07/05/24 21:29 07/05/24 21:29
Last Documented Vital Signs
Temp Pulse Resp BP Pulse Ox
97.3 F 74 20 97/41 91
07/05/24 21:29 07/05/24 21:29 07/05/24 21:29 07/05/24 21:29 07/05/24 21:29
*Pulse Oximetry
Patient hypoxic: no
*Critical Care Note
Total Time (30-74mins, 75-104mins- exclusive of procedures): 30
ED Attending Note
-
Portions of this chart may have been created with voice recognition software.� Occasional wrong word or��sound alike� substitutions may have occurred due to the inherent limitations of voice recognition software.
Discharge Plan
Departure
Patient Disposition: Admit
Date of Disposition: 07/05/24
Time of Disposition: 22:32
Admit to: ICU
Presentation/result/management discussed w/ accepting MD/DO: Hospitalist
Condition: Serious
Discharge Problem:
Acute upper gastrointestinal bleeding, Acute blood loss anemia, Cirrhosis, non-alcoholic
Prescriptions:
No Action
ropinirole 1 mg Tablet
1 mg PO HS
furosemide [Lasix] 40 mg Tablet
40 mg PO DAILY
acetaminophen [Tylenol] 325 mg Tablet
650 mg PO Q4HPRN PRN (Reason: mild pain)
spironolactone 100 mg Tablet
100 mg PO DAILY
midodrine 5 mg Tablet
5 mg PO BID
therapeutic multivitamin Tablet
1 tab PO DAILY
tramadol 50 mg Tablet
50 mg PO BIDPRN PRN (Reason: moderate pains)
levothyroxine [Synthroid] 75 mcg Tablet
75 mcg PO DAILY
magnesium oxide 250 mg magnesium Tablet
250 mg PO DAILY
ursodiol 500 mg Tablet
500 mg PO TID
calcium carbonate-vitamin D3 [Calcium 600 + D(3)] 600 mg-10 mcg (400 unit) Tablet
2 tab PO DAILY
Refresh Optive 0.5-0.9 % Drops
1 drp BOTH EYES TID
levocetirizine 5 mg Tablet
5 mg PO HS
Ferrous Glycinate
28 mg PO DAILY
ciprofloxacin HCl 500 mg tablet
500 mg PO BID 4 Days Qty: 8 0RF
pantoprazole 40 mg tablet,delayed release (DR/EC)
40 mg PO BID 30 Days Qty: 60 0RF
Interventions
Interventions:
*Risk Screen - Suicide Last Done: 07/05/24 21:29
*General Assessment Last Done: 07/05/24 21:29
*Neglect/Abuse Screening Last Done: 07/05/24 21:29
*ED COVID-19 Vaccine History Last Done: 07/05/24 22:23
Discharge Date and Time
Print Language: TOGOLESE
[2024-07-05 22:22] VITALS: BP 106/41; BMI 16.8
[2024-07-05 23:00] VITALS: BP 101/39
[2024-07-05] MEDS: NSS 1000 IV (23:13)
[2024-07-05] MEDS: SANDOSTATIN 50 MCG IV (23:14)
[2024-07-05] MEDS: PROTONIX IV 80 MG IV (23:19)
[2024-07-05] MEDS: PROTONIX 100 IV (23:24)
[2024-07-05] MEDS: FLUSH (NSS) 1 FLUSH IV (23:25)
--- NOTE | 2024-07-05 23:37 | HPS.HSE ---
Family Physician
-
Family Physician: Nelson Narayan
Chief Complaint
-
maroon tarry stools
History of Present Illness
Patient is a 79-year-old female with past medical history significant for hypothyroidism primary biliary cholangitis, CKD, hx of pleural effusions, Crohn's disease who presented to [facility] ED for evaluation of maroon tarry stools. Patient recent
hospitalization for upper GI bleed, discharged on 06/21/2024. Patient stated that maroon tarry stools and bloody spit have been present for two days associated with shortness of breath, out patient lab work resulted today with Hgb 6.3 so came to
hospital for transfusion. Patient denies any other symptoms, no cough, chest pain, palpitations, dizziness, constipation or urinary symptoms.
Medical History
Past Medical History
Past Medical History: Reports Other
Additional Past Medical History:
Hx GI bleed
hypothyroidism
primary biliary cholangitis
CKD
hx of pleural effusions
Crohn's disease
Past Surgical History: Reports Other
Additional Past Surgical History:
appendectomy
Social History
Tobacco: Former Smoker (quit 25-years ago)
Alcohol: Occasional (rare r/t cirrhosis )
Drug: None
Personal:
Living: With Family
Employment: Retired
Family History
Family History: Not pertinent
Allergies / Home Medications
Allergies reflects when Allergies were last updated in [facility].
Home Medications with original date entered in [facility]
Allergy/Medication List:
Allergies
Allergy/AdvReac Type Severity Reaction Status Date / Time
No Known Allergies Allergy Unverified 06/18/24 12:43
Home Medications
Ferrous Glycinate 28 mg PO DAILY Supplement 06/18/24
acetaminophen 325 mg tablet (Tylenol) 650 mg PO Q4HPRN PRN mild pain 06/18/24
carboxymethylcellulose 0.5 %-glycerin 0.9 % eye drops (Refresh Optive) 1 drp BOTH EYES TIDPRN PRN dry eyes 06/18/24
furosemide 40 mg tablet (Lasix) 40 mg PO DAILY Fluid Retention/Swelling 06/18/24
levocetirizine 5 mg tablet 5 mg PO HS Allergies 06/18/24
levothyroxine 75 mcg tablet (Synthroid) 75 mcg PO DAILY Thyroid 06/18/24
magnesium oxide 250 mg PO DAILY Electrolyte Repletion 06/18/24
midodrine 5 mg tablet 5 mg PO BIDPRN PRN if BP<120 06/18/24
ropinirole 1 mg tablet 1 mg PO HS Neurological Condition 06/18/24
therapeutic multivitamin 1 tab PO DAILY Supplement 06/18/24
tramadol 50 mg tablet 50 mg PO TIDPRN PRN moderate pains 06/18/24
pantoprazole 40 mg tablet,delayed release 40 mg PO BID 30 days #60 tabs 06/21/24
albuterol sulfate 90 mcg/actuation aerosol inhaler 2 puff inhalation R Q4HPRN PRN sob 07/05/24
calcium carbonate (Calcium 600) 600 mg PO DAILY 07/05/24
cholecalciferol (vitamin D3) 25 mcg (1,000 unit) tablet (Vitamin D3) 25 mcg PO DAILY 07/05/24
ursodiol 300 mg capsule 300 mg PO TID 07/05/24
Review of Systems
-
History Source: Patient
Constitutional: Reports No Symptoms
EENT: Reports No Symptoms
Respiratory: Reports Trouble Breathing (shortness of breath)
Cardiac: Reports No Symptoms
Abdomen/GI: Reports Bloody Stools (maroon tarry stools for 2 days), Pain and Other (spitting out bright red blood intermittently )
: Reports No Symptoms
Musculoskeletal: Reports No Symptoms
Skin: Reports No Symptoms
Neurological: Reports No Symptoms
Endocrine: Reports No Symptoms
Hematologic/Lymphatic: Reports No Symptoms
Psych: Reports No Symptoms
Physical Exam
Vital Signs
Vital Signs
Temp Pulse Resp BP Pulse Ox
97.3 F 74 20 101/39 96
07/05/24 21:29 07/05/24 21:29 07/05/24 21:29 07/05/24 23:00 07/05/24 23:15
Physical Exam
General: Well Developed, Well Nourished, No Apparent Distress, Comfortable and Conversant
HEENT: NormoCephalic, Moist mucous membranes, Atraumatic, PERRLA, [place] Conjunctivae, Nose Appears Normal, Ears Appear Normal and Neck Nontender
Respiratory: Clear, Non Labored Respirations, Decreased Breath Sounds and Other (mild dyspnea with conversation)
Cardiac: S1/S2 and Regular Rhythm; No Murmur, Rub or Gallop
Breast: Deferred by me
GI: Soft, Non Tender and Normal Bowel Sounds; No Organomegaly
Rectal: Deferred by Provider
Genito-urinary: Deferred by me
Musculoskeletal: No Clubbing, No Cyanosis and No Edema
Skin: Warm and IV/Catheter Site; No Rash
Neuro: Awake, Alert, AO x 3 and Nonfocal/grossly intact
Hematologic/Lymphatic: No Lymphadenopathy
Psych: Calm and Intact Judgment/Insight
Laboratory Results
-
07/05/24 21:42
07/05/24 21:42
Laboratory Results
PT 12.6 Sec (11.4-14.6) 07/05/24 21:42
INR 0.90 07/05/24 21:42
APTT 28.1 Sec (23.4-35.0) 07/05/24 21:42
Total Bilirubin 0.3 mg/dl (0.2-1.3) 07/05/24 21:42
AST 75 U/L (14-36) H 07/05/24 21:42
ALT 41 U/L (0-35) H 07/05/24 21:42
Alkaline Phosphatase 425 U/L (38-126) H 07/05/24 21:42
Data Reviewed
-
Lab Data: Labs Reviewed by me (hgb 6.1, hct 19.9)
Impression/Plan
-
IMPRESSION/PLAN:
#GI bleed
reported maroon tarry stools with blood emesis for a few days
Hgb 6.1/Hct 19.9
- admit to Telemetry
- GI consult
- NPO
- Transfuse for Hgb <7.0 (blood consent obtained)
- IV Rocephin
- Octreotide and Protonix gtt
#hypothyroidism
- continue levothyroxine
#primary biliary cholangitis
AST 75, ALT 41, Alk Phos 425
- follows with GI at [facility]
- continue furosemide, spironolactone and ursodiol
- monitor CMP
#CKD
BUN 28, Creat 1.1
- unknown baseline, monitor BMP
#hx of pleural effusions
#Crohn's disease
Code Status: Limited (no intubation)
DVT Prophylaxis: SCDs
[2024-07-06] VITALS (25 sets, daily range): BP systolic 102–168; BP diastolic 52–83; BMI 16.8; BMI 17.3
--- NOTE | 2024-07-06 00:35 | W.PN.UPDATE ---
Update Note
Progress Note Update
Patient seen in conjunction with DOG BEHAVIORIST. I agree with the history and physical. I concur with assessment and plan listed otherwise.
This is an 79-year-old female with past medical history of primary biliary cholangitis with cirrhosis complicated by grade 1 esophageal varices and recent history of upper GI bleed status post EGD showing the varices but without any observable
bleeding and not requiring banding presents to the emergency department with recurrent episode of hematemesis and continued melena. Patient is not on any anticoagulation and is not receiving any aspirin.
She states that she has been having dark maroon and tarry stools as well as vomiting up some blood for the last few days. She had outpatient blood work which resulted this morning and showed her hemoglobin was 6.3. She came right into the hospital
for transfusion. She feels short of breath.
In the ED, blood pressure was 180 with a pulse of 79. She was satting 95% on room air and she was afebrile. Hemoglobin was 6.1 today down from 11 when she left the hospital on June 21. Platelet count was normal. INR was normal. LFTs are
unchanged from prior. Electrolytes BUN and creatinine were within the normal range.
Giving hematemesis (patient reports a very small amount) and ongoing melena for several days patient likely has subacute upper GI bleed. There has been some significant blood loss given the drop in hemoglobin to 6.1. She is hemodynamically stable
and nontachycardic at this time. Has melanotic stool and can't rule out ongoing bleeding.
GI bleed
- admit to telemetry
- continue protonix and octreotide drips for now
- ceftriaxone for GI ppx
- npo except meds and ice chips
- GI consultation
Cirrhosis - No known ascites. No voluem overload on exam
- hold lasix for now
- continue ursodiol
- midodrine bid prn
DVT PPX - SCDs
Code status - do not intubate
[2024-07-06] MEDS: SANDOSTATIN 500.6 MCG IV ×2 (02:37→16:12)
[2024-07-06] MEDS: ROCEPHIN 1000 MG IV (02:39)
[2024-07-06] MEDS: STERILE WATER FOR INJECTION 10 ML IV (02:39)
[2024-07-06] MEDS: SYNTHROID 75 MCG PO (06:24)
--- NOTE | 2024-07-06 06:36 | PTCARENOTE ---
Addendum entered by Tayla Chao RN 07/07/24 01:25:
This RN performed skin assessment on patient during admission. No wounds noted.
Original Note:
Received pt from ED into room 2130. Pt able to stand and pivot to bed with stand by assist x1. Pt AAOx3. VSS. Protonix gtt, octreotide gtt, and blood all infusing. Pt c/o SOB, 96% RA. Tele, NSR. Pt answered all admission questions. Resting
comfortably in bed, no complaints at this time.
[2024-07-06] MEDS: ACTIGALL 300 MG PO ×3 (07:33→21:15)
--- NOTE | 2024-07-06 07:49 | CON.GI ---
Addendum entered and electronically signed by Agnes Lara Do, MD 07/06/24 10:55:
I saw and examined the patient.
The TIRE MOLD ENGRAVER's note was reviewed and I agree with the note.
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 She has had several EGD/colonoscopies last was here in 06/18 with results as below.
Recommend urgent EGD today after 2 units PRBC transfusions
Impression
- GI bleeding from likely varices, severe PHG and gastric angiodysplasias
EGD /3 with banding x3 and APC of AVMs
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
MELD is [address] Quiroz but not transplant candidate
- CKD
- Pleural effusion
- Hypothyroidism
Recommend
- CLD post EGD
- C/w octreotide to finish 72hrs and abx to complete 7 days
- Protonix changed to 40mg IV BID
- Repeat EGD in 4 wks to follow up on varices
- Consider nonselective Bblocker if HR tolerates outpatient basis
- Recent abd US reviewed no HCC
- C/w ursodiol
Hospitalist, patient and updated with above
Will follow with you
Original Note:
Consultation
-
Date/Time Consultation Requested: 07/06/2457
Date/Time Consultation Performed: 07/06/24 5558
Requesting Provider: ARABELLA Whipple
Performing Provider: Dr. Tatum/JOHNY Cristina
Reason for Consultation: GI bleed
Medical History
Chief Complaint / HPI
Chief Complaint: marroon blood per reum
History of Present Illness:
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
saw ARABELLA Chappell- and Dr. Trae Quiroz at [facility] June 2024, also followed by Dr. Walls at [facility] in the past who was hospitalized at 06/18/24 for UGIB . At that time the patient had EGD on 06/18/24 that
showed significant old or fresh blood throughout the entire upper GI tract. Very small esophageal varices which completely flattened with insufflation and not source of patient's previous presentation. Potential etiologies include gastric
Dieulafoy lesion versus nodule at GE junction. Patient did have evidence of mild portal hypertensive gastropathy. The patient remained stable during her hospitalization. She had no signs of recurrent bleeding. She was treated with octreotide, IV
PPI and IV ceftriaxone given her trace ascites on recent ultrasound. When I did speak to [place] [facility] it was mentioned that they had a conversation about possible TIPS with the patient but there was concern about post TIPS hepatic
encephalopathy. They did feels that she was too frail to tolerate Lactulose, therefore she was started on Xifaxan however this was cost prohibitive. She has not a transplant candidate.When the patient was discharged on 06/21/2024 her hemoglobin was
11.5. She returns to the emergency room for tarry stools for the past 4 days, she states this would go between black and brown, bloody spit up x 2 days and shortness of breath/HOROWITZ x 3 days. Lab work shows a hemoglobin of 6.3. Patient presented to
the emergency room for further evaluation.WBC 5.7, hemoglobin 6.1, hematocrit 19.9, platelets 169 PT 12.6, INR 0.90, sodium 142, potassium 4.3, chloride 115, CO2 18, BUN 28, creatinine 1.1, glucose 117, total bilirubin 0.3, AST 75, ALT 41, alk phos
425, albumin 3.1, MELD 3.0 = 9. Patient has been transfused 2 units packed red blood cells. When patient presented blood pressure was 97/41, currently blood pressure is 130/67, heart rate 77, patient afebrile. Patient continues on pantoprazole
drip, octreotide drip, ursodiol, ceftriaxone, midodrine at present time. Repeat labs pending at present time. The patient had 2 episodes of black stool and maroon over night. She has some mid epigastric abdominal discomfort with persistent SOB/HOROWITZ.
She denies any CP, dizziness or lightheadedness. She states that Dr. Quiroz took her off Xifaxan and spironolactone. He wanted her to be on Furosemide. Those are the only medication changes since we last saw her.
Past Medical History
Past Medical History: Hypothyroidism and Other (Primary Biliary Cirrhosis)
Social History
Tobacco: Non-Smoker
Alcohol: None
Drug: None
Personal:
Living: With Family
Family History
Family History: Other (No family hx GI malignancy or IBD)
Allergies / Home Medications
Allergy/AdvReac Type Severity Reaction Status Date / Time
No Known Allergies Allergy Unverified 06/18/24 12:43
�Medication �Instructions �Recorded
Ferrous Glycinate 28 mg PO DAILY Supplement 06/18/24
acetaminophen 325 mg tablet 650 mg PO Q4HPRN PRN mild pain 06/18/24
(Tylenol)
carboxymethylcellulose 0.5 1 drp BOTH EYES TIDPRN PRN dry eyes 06/18/24
%-glycerin 0.9 % eye drops
(Refresh Optive)
furosemide 40 mg tablet (Lasix) 40 mg PO DAILY Fluid 06/18/24
Retention/Swelling
levocetirizine 5 mg tablet 5 mg PO HS Allergies 06/18/24
levothyroxine 75 mcg tablet 75 mcg PO DAILY Thyroid 06/18/24
(Synthroid)
magnesium oxide 250 mg PO DAILY Electrolyte 06/18/24
Repletion
midodrine 5 mg tablet 5 mg PO BIDPRN PRN if BP<120 06/18/24
ropinirole 1 mg tablet 1 mg PO HS Neurological Condition 06/18/24
therapeutic multivitamin 1 tab PO DAILY Supplement 06/18/24
tramadol 50 mg tablet 50 mg PO TIDPRN PRN moderate pains 06/18/24
pantoprazole 40 mg tablet,delayed 40 mg PO BID 30 days #60 tabs 06/21/24
release
albuterol sulfate 90 mcg/actuation 2 puff inhalation R Q4HPRN PRN sob 07/05/24
aerosol inhaler
calcium carbonate (Calcium 600) 600 mg PO DAILY 07/05/24
cholecalciferol (vitamin D3) 25 25 mcg PO DAILY 07/05/24
mcg (1,000 unit) tablet (Vitamin
D3)
ursodiol 300 mg capsule 300 mg PO TID 07/05/24
Review of Systems
-
All other systems: A 12 pt ROS was Negative except as stated above in HPI
Vital Signs
Temp Pulse Resp BP Pulse Ox
97.8 F 76 18 132/83 96
07/06/24 06:15 07/06/24 06:15 07/06/24 06:15 07/06/24 06:15 07/06/24 06:31
Physical Exam
Exam
General: Other (HOROWITZ)
HEENT: Anicteric
Respiratory: Clear (decreased bases B/L (R> L))
Cardiac: Regular Rhythm
GI: Soft, Non Distended, Normal Bowel Sounds and Other (+ epigasric discomfort to palpation)
Musculoskeletal: No Edema
Skin: Warm and Dry
Neuro: AO x 3 and Other (no asterixis )
Psych: Calm
Results
WBC Cancelled 07/06/24 05:33
Hgb Cancelled 07/06/24 05:33
Hct Cancelled 07/06/24 05:33
MCV Cancelled 07/06/24 05:33
Plt Count Cancelled 07/06/24 05:33
Absolute Neuts (auto) 3.9 10^3/uL (1.4-6.5) 07/05/24 21:42
PT 12.6 Sec (11.4-14.6) 07/05/24 21:42
INR 0.90 07/05/24 21:42
APTT 28.1 Sec (23.4-35.0) 07/05/24 21:42
Sodium Cancelled 07/06/24 05:33
Potassium Cancelled 07/06/24 05:33
Chloride Cancelled 07/06/24 05:33
Carbon Dioxide Cancelled 07/06/24 05:33
BUN Cancelled 07/06/24 05:33
Creatinine Cancelled 07/06/24 05:33
Calcium Cancelled 07/06/24 05:33
Total Bilirubin Cancelled 07/06/24 05:33
AST Cancelled 07/06/24 05:33
ALT Cancelled 07/06/24 05:33
Alkaline Phosphatase Cancelled 07/06/24 05:33
Diagnostic Image Results:
US Abd with dopplers 06/19/24:
IMPRESSION:
1. MODERATE HEPATIC CIRRHOSIS.
2. Minimal perihepatic ascites.
3. Gallbladder sludge.
4. No sonographic evidence for portal or hepatic vein thrombosis.
5. Moderate scarring in the upper pole of the right kidney.
6. Small right and minimal left pleural effusions.
Prior GI Procedures:
EGD: 06/18/24 (Dr. Ashley) - Normal proximal esophagus.
- Grade I and small (< 5 mm) esophageal varices. No
banding was performed as these completely flattened
with insufflation.
- Mucosal nodule found in the esophagus at the GE
junction without any signs of active bleeding. No
biopsies were performed given concern for recent upper
GI bleeding.
- Bilious gastric fluid in the stomach. This was
suctioned and cleared.
- Mild, diffuse portal hypertensive gastropathy in the
entire stomach.
- Otherwise, normal stomach on direct and retroflexion
views. No evidence of gastric varices.
- Normal examined duodenum up to the third portion of
the duodenum without any ulcerations, duodenal
varices, or other bleeding lesions.
- The examination was otherwise normal.
- No specimens collected.
- Will need to obtain records from prior EGD 03/2024
given previous concern for prior gastric nodule at the
GE junction. Consider EGD/EUS as an outpatient if not
previously performed
- Recommend repeat EGD in 1 year for EV surveillance
EGD: Patient states she had EGD at [facility] over the summer.
Colonoscopy: Patient states she had colonoscopy over the summer
Assessment / Plan
-
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
saw ARABELLA Chappell- and Dr. Trae Quiroz at [facility] June 2024, also followed by Dr. Walls at [facility] in the past who was hospitalized at 06/18/24 for UGIB. EGD at that time with small esophageal varices
flattened with insufflation. No banding performed. Portal hypertensive gastropathy in entire stomach. Gastric nodule at GE junction with history of prior bleeding status post clipping 03/2024. There was no significant old or fresh blood
throughout the entire upper examined GI tract. Discharge hemoglobin at that time on 06/21/2024 was 11.5. Patient with 4 days of melena changing over to melena/maroon stools. With spitting up of fresh blood x 2 days. Dyspnea on exertion with
shortness of breath presents with hemoglobin of 6.1. Now status post 2 units packed red blood cells. Repeat hemoglobin pending. Started on pantoprazole drip, octreotide drip, ceftriaxone 1 g IV daily. Lab work shows a hemoglobin of 6.3. Patient
presented to the emergency room for further evaluation.WBC 5.7, hemoglobin 6.1, hematocrit 19.9, platelets 169 PT 12.6, INR 0.90, sodium 142, potassium 4.3, chloride 115, CO2 18, BUN 28, creatinine 1.1, glucose 117, total bilirubin 0.3, AST 75, ALT
41, alk phos 425, albumin 3.1, MELD 3.0 = 9. Vital signs stable.
Impression:
Acute Upper GI Bleed-> hx of small EV on EGD 06/18/24
Decompensated Primary Biliary Cirrhosis--> with history of pleural effusions, ascites (not requiring recent paracentesis)
Chronic hypotension-> on midodrine
Grade 1 and small less than 5 mm esophageal varices, flattened with insufflation (no banding performed)
Portal hypertensive gastropathy in entire stomach, mild diffuse--> EGD 06/18/24
Gastric nodule at GE Junction (hx of prior bleeding s/p clipping 03/2024)
Plan:
-NPO
-Transfuse to keep Hgb > 7
-Needs stat CBC, CMP. Jonah texted plant operator helper for the floor.
-Continue Octreotide gtt
-Continue Protonix gtt
-Ensure 2 large bore IV access at all times
-Continue Ceftriaxone 1 gm IV daily for 7 days.
-EGD planned for today, once repeat labs obtained.
-Trend Hgb q 6 hrs.
-Daily CBC, CMP, INR
-Further recommendations to be forthcoming
-Obtain records from prior EGD 03/2024 given previous concern for prior gastric nodule at the GE junction. Consider EGD/EUS as an outpatient if not previously performed.
-Recommend EGD in 1 year for EV surveillance
-Recommend chest x-ray with shortness of breath/dyspnea on exertion, despite transfusion 2 units packed red blood cells.
-Patient was supposed to follow-up with hematology as an outpatient per hepatology request. Could see if we can facilitate that here if patient was to be following up [facility]. Patient states she has an appointment scheduled 07/26/2024.
Attempted to call to see if this was the case. No answer at present time.
-Further recommendations to be forthcoming
-
-
Thank you for consultation and allowing me to participate in the patient's care. Please call the qualifications examiner GI physician during the after hours with any questions or concerns.
--- NOTE | 2024-07-06 09:35 | CM ---
Reviewed the chart notes and spoke with the patient at the bedside. Patient admitted for GI bleed. Recently discharged from (06/18-06/21) for GI Bleed. The patient resides with her spouse in a one story home with one step to enter. The
patient reports only DME is a rolling walker. The patient is current with [facility], but no SNF. The patient's pharmacy of choice is the [facility]. The patient confirmed her PCP is Dr. Nelson Narayan. The patient
anticipates being discharged to home with resumption of VN services. Referral to [facility] sent via [facility]. CM continues to be available to patient/family and is monitoring medical plan for needs at discharge.
Plan: Discharge to home with resumption of [facility].
[facility]
[2024-07-06 10:34] LABS: Hematocrit 30.1 % (37.0-47.0); Hemoglobin 9.5 g/dL (12.0-16.0); Mean Corp Hgb Conc. 31.6 g/dL (33.0-37.0); Mean Corpuscular Hgb 27.9 pg (27.0-31.0); Mean Corpuscular Volume 88.3 fL (81.0-99.0); Mean Platelet Volume 11.2 fL (7.4-10.4); Platelet Count 116 10^3/uL (130-400); Red Blood Cell Count 3.41 10^6/uL (4.20-5.40); Red Cell Dist. Width 19.4 % (11.5-14.5); White Blood Cell Count 4.7 10^3/uL (4.8-10.8)
--- NOTE | 2024-07-06 11:03 | W.PN.HOSP.TC ---
Today's Communication/Plan
-
Clear liquid diet
Chest x-ray
PPI drip and octreotide
Follow hemoglobin
Assessment / Plan
Assessment / Plan
79-year-old female presented with lateral and tarry stools also had some bloody spit and some shortness of breath
Ultrasound of the abdomen 06/19/2024-moderate hepatic cirrhosis, perihepatic ascites, gallbladder sludge small left pleural effusion
EKG 07-05-24-sinus rhythm, left axis deviation
CVS: S1-S2 normal
Chest: Decreased breath sounds bilateral bases
Abdomen: Soft, NT / Bowel sounds present
Extremities: No edema,
# GI bleed
Hemodynamically stable
Acute blood loss anemia secondary to GI bleed
EGD 06/18/2024 no significant bleeding small EV
EGD 07/06/2024-grade 2 esophageal varices banded x 3. Portal hypertensive gastropathy. 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
Clear liquid diet
Blood transfusion-status post 2 units of PRBCs-hemoglobin came up to 9.5
IV ceftriaxone, octreotide and Protonix drip started-continue
GI has been consulted
# History of primary biliary cholangitis
History of decompensation with ascites hepatic encephalopathy, PHG and GAVE and pleural effusion in the past
Last admission GI discussed with [place] [facility]-there was discussions about TIPS but not a candidate for liver transplant
Follows up with Dr. Quiroz at [place]
On Lasix Aldactone -hold as n.p.o.
Also on ursodiol
# Patient was short of breath therefore chest x-ray PA lateral ordered with history of pleural effusions
# Mild thrombocytopenia-secondary to liver disease. Follow
# Mild metabolic acidosis likely from CKD and liver disease
# Hypothyroidism-continue Synthroid
# Chronic hypotension on midodrine
# Likely has CKD-possible CKD stage III
# History of pleural effusions
# Emphysema/COPD- PRN nebs
# History of nephrolithiasis
# Chron's disease
# DNI
# DVT prophylaxis-SCDs
BMP pending
Discussed with nursing
Discussed with GI
Spoke to and updated
Time spent over 50 minutes
Anticipated Discharge: > 48 hours
Subjective/Interval History
-
Date of Service: July 06, 2024
Objective Data
-
Labs:
Laboratory Results
07/06/24 07/06/24 07/06/24
05:33 09:53 15:00
WBC Cancelled 4.7 L Pending
Hgb Cancelled 9.5 L D Pending
Hct Cancelled 30.1 L Pending
Plt Count Cancelled 116 L D Pending
Sodium Cancelled Pending
Potassium Cancelled Pending
Chloride Cancelled Pending
Carbon Dioxide Cancelled Pending
BUN Cancelled Pending
Creatinine Cancelled Pending
Glucose Cancelled Pending
Calcium Cancelled Pending
Total Bilirubin Cancelled Pending
AST Cancelled Pending
ALT Cancelled Pending
Alkaline Phosphatase Cancelled Pending
07/06/24
21:00
WBC Pending
Hgb Pending
Hct Pending
Plt Count Pending
Sodium
Potassium
Chloride
Carbon Dioxide
BUN
Creatinine
Glucose
Calcium
Total Bilirubin
AST
ALT
Alkaline Phosphatase
Vital Signs:
Vital Signs
Temp Pulse Resp BP Pulse Ox
97.5 F 70 26 127/71 92
07/06/24 10:47 07/06/24 10:47 07/06/24 10:47 07/06/24 10:47 07/06/24 10:47
I&O
07/05/24 07/06/24 07/07/24
06:59 06:59 06:59
Intake Total 250 / 250 250 / 250
Balance 250 / 250 250 / 250
[2024-07-06 11:16] LABS: ALT (SGPT) 36 U/L (0-35); AST (SGOT) 57 U/L (14-36); Albumin 2.7 g/dl (3.5-5.0); Alkaline Phosphatase 362 U/L (38-126); Blood Urea Nitrogen 23 mg/dl (7-17); Calcium 7.6 mg/dl (8.4-10.2); Carbon Dioxide 15 mmol/L (22-30); Chloride 117 mmol/L (98-107); Estimated Creatinine Clearance 28 ml/min; Glucose 99 mg/dl (70-99); Potassium 4.4 mmol/L (3.5-5.1); Sodium 142 mmol/L (135-145); Total Bilirubin 0.8 mg/dl (0.2-1.3); Total Protein 5.9 g/dl (6.3-8.2); eGFR 45.76
[2024-07-06] MEDS: NSS (PRESERVATIVE FREE) 10 ML IV ×2 (12:34→21:15)
[2024-07-06] MEDS: PROTONIX IV 40 MG IV ×2 (12:34→21:15)
[2024-07-06] MEDS: REQUIP 0.5 MG PO (16:12)
[2024-07-06 18:16] LABS: Mean Corp Hgb Conc. 31.4 g/dL (33.0-37.0); Mean Corpuscular Hgb 28.2 pg (27.0-31.0); Mean Corpuscular Volume 89.7 fL (81.0-99.0); Mean Platelet Volume 10.8 fL (7.4-10.4); Platelet Count 117 10^3/uL (130-400); Red Cell Dist. Width 20.2 % (11.5-14.5); White Blood Cell Count 4.9 10^3/uL (4.8-10.8)
[2024-07-06] MEDS: REQUIP 1 MG PO (21:16)
[2024-07-06 23:49] LABS: Hematocrit 30.3 % (37.0-47.0); Hemoglobin 9.4 g/dL (12.0-16.0); Mean Corpuscular Hgb 27.8 pg (27.0-31.0); Mean Corpuscular Volume 89.6 fL (81.0-99.0); Mean Platelet Volume 10.5 fL (7.4-10.4); Platelet Count 117 10^3/uL (130-400); Red Blood Cell Count 3.38 10^6/uL (4.20-5.40); White Blood Cell Count 4.9 10^3/uL (4.8-10.8)
[2024-07-07] MEDS: STERILE WATER FOR INJECTION 10 ML IV (02:50)
[2024-07-07] MEDS: ROCEPHIN 1000 MG IV (02:50)
[2024-07-07 03:00] VITALS: BP 99/67
[2024-07-07] MEDS: SANDOSTATIN 500.6 MCG IV ×2 (05:49→17:39)
[2024-07-07] MEDS: SYNTHROID 75 MCG PO (05:49)
[2024-07-07 06:00] VITALS: BMI 17.7
[2024-07-07 06:43] LABS: Hematocrit 28.5 % (37.0-47.0); Mean Corp Hgb Conc. 31.6 g/dL (33.0-37.0); Mean Corpuscular Hgb 27.7 pg (27.0-31.0); Mean Corpuscular Volume 87.7 fL (81.0-99.0); Platelet Count 115 10^3/uL (130-400); Red Blood Cell Count 3.25 10^6/uL (4.20-5.40); Red Cell Dist. Width 19.8 % (11.5-14.5); White Blood Cell Count 4.5 10^3/uL (4.8-10.8)
[2024-07-07 06:48] LABS: INR 0.99; PT 13.3 Sec (11.4-14.6)
[2024-07-07 07:10] LABS: ALT (SGPT) 30 U/L (0-35); AST (SGOT) 45 U/L (14-36); Albumin 2.7 g/dl (3.5-5.0); Alkaline Phosphatase 331 U/L (38-126); Blood Urea Nitrogen 18 mg/dl (7-17); Calcium 7.5 mg/dl (8.4-10.2); Carbon Dioxide 15 mmol/L (22-30); Chloride 117 mmol/L (98-107); Estimated Creatinine Clearance 28 ml/min; Glucose 99 mg/dl (70-99); Sodium 142 mmol/L (135-145); Total Bilirubin 0.9 mg/dl (0.2-1.3); Total Protein 5.8 g/dl (6.3-8.2); eGFR 45.76
[2024-07-07 07:45] VITALS: BP 135/62
[2024-07-07] MEDS: ACTIGALL 300 MG PO ×3 (07:56→20:52)
[2024-07-07] MEDS: NSS (PRESERVATIVE FREE) 10 ML IV ×2 (07:56→20:51)
[2024-07-07] MEDS: PROTONIX IV 40 MG IV ×2 (07:56→20:52)
--- NOTE | 2024-07-07 10:09 | W.PN.GI.CBS2 ---
Today's Communication / Plan
-
Ok from GI perspective for hosp d/c after 72hrs of octreotide (1/6 AM) is completed
Changed to cipro to complete 7 day course (last dose to be 07/12/24)
PPI BID x 4 wks then daily there afterwards
EGD in 4wks she has FU appt with Dr Quiroz/transplant hepatology
Assessment / Plan
-
Dottie is an 79yo W with h/o Amita C PBC cirrhosis decompensated by ascites and pleural effusion who was admitted for black/maroon colored stools. She has had several EGD/colonoscopies last was here in 06/18 with results as below. Recommend urgent
EGD today after 2 units PRBC transfusions
Impression
- GI bleeding from likely varices, severe PHG and gastric angiodysplasias
EGD 07/06 with banding x3 and APC of AVMs
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
MELD is 9 07/06/[address] Quiroz but not transplant candidate
- CKD
- Pleural effusion
- Hypothyroidism
Recommend
- Adv to regular diet
- C/w octreotide to finish 72hrs 1/6 AM
- Transition to oral cipro to complete 7 days of abx
- C/w protonix 40mg IV BID
- Repeat EGD in 4 wks to follow up on varices. She prefers to do with Dr Quiroz. Has appt with him in [place] 07/25 (D/c paperwork updated)
- Consider nonselective Bblocker if HR tolerates outpatient basis
- Recent abd US reviewed no HCC
- C/w ursodiol
No new GI recs will sign off please call for ?
Subjective
Subjective
Date of Service: July 07, 2024
Tolerated FLD without issue. No chest pains. Hbg stable. Pass small brown BM today. Denies nausea/vomiting
Objective
Data Reviewed
Laboratory Data:
Laboratory Results
07/07/24 05:55
07/07/24 05:55
Laboratory Results
PT 13.3 Sec (11.4-14.6) 07/07/24 05:55
INR 0.99 07/07/24 05:55
APTT 28.1 Sec (23.4-35.0) 07/05/24 21:42
Magnesium 2.0 mg/dl (1.6-2.3) 07/06/24 09:53
Total Bilirubin 0.9 mg/dl (0.2-1.3) 07/07/24 05:55
AST 45 U/L (14-36) H 07/07/24 05:55
ALT 30 U/L (0-35) 07/07/24 05:55
Alkaline Phosphatase 331 U/L (38-126) H 07/07/24 05:55
Vital Signs and I&O:
Vital Signs
Temp Pulse Resp BP Pulse Ox
97.9 F 69 17 135/62 94
07/07/24 07:45 07/07/24 07:45 07/07/24 07:45 07/07/24 07:45 07/07/24 07:45
I&O
07/06/24 07/07/24 07/08/24
06:59 06:59 06:59
Intake Total 250 / 250 610 / 610
Balance 250 / 250 610 / 610
Physical Exam
Physical Exam
GEN: No acute distress, conversant, pleasant
HEENT: anicteric, extraocular movements intact, clear oropharynx without exudates
GI: soft, non-distended, not tender to palpation, normal active bowel sounds, no hepatosplenomegaly
EXT: warm, well perfused, trace edema bilaterally
NEURO: AAOx3, non-focal
[2024-07-07] MEDS: CIPRO 500 MG PO (11:38)
[2024-07-07 12:08] VITALS: BP 110/58
--- NOTE | 2024-07-07 14:38 | W.PN.HOSP.TC ---
Today's Communication/Plan
-
Continue octreotide and Protonix
Ultrasound of the chest
Restart Lasix
Assessment / Plan
Assessment / Plan
79-year-old female presented with lateral and tarry stools also had some bloody spit and some shortness of breath
Ultrasound of the abdomen 06/19/2024-moderate hepatic cirrhosis, perihepatic ascites, gallbladder sludge small left pleural effusion
EKG 07-05-24-sinus rhythm, left axis deviation
CVS: S1-S2 normal
Chest: Decreased breath sounds bilateral bases
Abdomen: Soft, NT / Bowel sounds present
Extremities: No edema.
# GI bleed
Hemodynamically stable
Acute blood loss anemia secondary to GI bleed
EGD 06/18/2024 no significant bleeding small EV
EGD 07/06/2024-grade 2 esophageal varices banded x 3. Portal hypertensive gastropathy. 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
Clear liquid diet
Blood transfusion-status post 2 units of PRBCs-hemoglobin came up to 9.0
IV ceftriaxone, octreotide and Protonix
Ceftriaxone changed to ciprofloxacin-to be completed on
PPI twice daily for 4 weeks then daily afterwards
EGD in 4 weeks
Patient has an appointment with Dr. Quiroz
GI following
# History of primary biliary cholangitis
History of decompensation with ascites hepatic encephalopathy, PHG and GAVE and pleural effusion in the past
Last admission GI discussed with [place] [facility]-there was discussions about TIPS but not a candidate for liver transplant
Follows up with Dr. Quiroz at [place]
On Lasix restart
Also on ursodiol
# Right Pleural Effusion- Check ultrasound
# Mild thrombocytopenia-secondary to liver disease. Follow.
# Mild metabolic acidosis likely from CKD and liver disease
# Hypothyroidism-continue Synthroid
# Chronic hypotension on midodrine
# Likely has CKD-possible CKD stage III
# History of pleural effusions
# Emphysema/COPD- PRN nebs
# History of nephrolithiasis
# Chron's disease
# DNI
# DVT prophylaxis-SCDs
Discussed with nursing
Discussed with GI
Spoke to and updated
Anticipated Discharge: 24 - 48 hours
Subjective/Interval History
-
Date of Service: July 07, 2024
Objective Data
-
Labs:
Laboratory Results
07/07/24
05:55
WBC 4.5 L
Hgb 9.0 L
Hct 28.5 L
Plt Count 115 L
PT 13.3
INR 0.99
Sodium 142
Potassium 4.0
Chloride 117 H
Carbon Dioxide 15 L
BUN 18 H
Creatinine 1.2 H
Glucose 99
Calcium 7.5 L
Total Bilirubin 0.9
AST 45 H
ALT 30
Alkaline Phosphatase 331 H
Vital Signs:
Vital Signs
Temp Pulse Resp BP Pulse Ox
97.9 F 73 17 110/58 98
07/07/24 12:08 07/07/24 12:08 07/07/24 12:08 07/07/24 12:08 07/07/24 12:08
I&O
07/06/24 07/07/24 07/08/24
06:59 06:59 06:59
Intake Total 250 / 250 610 / 610
Balance 250 / 250 610 / 610
[2024-07-07] MEDS: LASIX 40 MG PO (15:06)
[2024-07-07] MEDS: SODIUM BICARBONATE 650 MG PO ×2 (15:06→20:52)
[2024-07-07] MEDS: MAG-TAB SR 84 MG PO (15:06)
[2024-07-07 15:35] VITALS: BP 132/75
[2024-07-07 19:47] VITALS: BP 162/71
[2024-07-07] MEDS: REQUIP 1 MG PO (20:52)
[2024-07-07] MEDS: ZYRTEC 10 MG PO (20:53)
[2024-07-07 23:25] VITALS: BP 134/59
[2024-07-08 03:16] VITALS: BP 136/60
[2024-07-08 05:08] VITALS: BMI 17.1
[2024-07-08] MEDS: SANDOSTATIN 500.6 MCG IV ×2 (06:22→17:41)
[2024-07-08] MEDS: SYNTHROID 75 MCG PO (06:23)
[2024-07-08 07:25] VITALS: BP 128/60
[2024-07-08] MEDS: SODIUM BICARBONATE 650 MG PO ×2 (09:15→20:20)
[2024-07-08] MEDS: FEOSOL 325 MG PO (09:15)
[2024-07-08] MEDS: MAG-TAB SR 84 MG PO (09:15)
[2024-07-08] MEDS: CIPRO 500 MG PO (09:15)
[2024-07-08] MEDS: ACTIGALL 300 MG PO ×3 (09:15→20:24)
[2024-07-08] MEDS: THERAGRAN 1 TABLET PO (09:16)
[2024-07-08] MEDS: OSCAL CAL 500 500 MG PO (09:16)
[2024-07-08] MEDS: LASIX 40 MG PO (09:16)
[2024-07-08] MEDS: NSS (PRESERVATIVE FREE) 10 ML IV ×2 (09:16→20:21)
[2024-07-08] MEDS: PROTONIX IV 40 MG IV ×2 (09:16→20:20)
[2024-07-08] MEDS: VITAMIN D3 (cholecalciferol) 25 MCG PO (09:16)
[2024-07-08 11:25] VITALS: BP 148/56
[2024-07-08 13:02] LABS: Hematocrit 29.7 % (37.0-47.0); Hemoglobin 9.4 g/dL (12.0-16.0); Mean Corp Hgb Conc. 31.6 g/dL (33.0-37.0); Mean Corpuscular Hgb 27.8 pg (27.0-31.0); Mean Corpuscular Volume 87.9 fL (81.0-99.0); Mean Platelet Volume 10.8 fL (7.4-10.4); Platelet Count 115 10^3/uL (130-400); Red Blood Cell Count 3.38 10^6/uL (4.20-5.40); Red Cell Dist. Width 19.1 % (11.5-14.5); White Blood Cell Count 4.7 10^3/uL (4.8-10.8)
[2024-07-08 13:17] LABS: Blood Urea Nitrogen 17 mg/dl (7-17); Calcium 7.2 mg/dl (8.4-10.2); Carbon Dioxide 19 mmol/L (22-30); Chloride 113 mmol/L (98-107); Estimated Creatinine Clearance 28 ml/min; Glucose 72 mg/dl (70-99); Sodium 140 mmol/L (135-145); eGFR 45.76
--- NOTE | 2024-07-08 14:39 | W.PN.HOSP.TC ---
Today's Communication/Plan
-
Thoracentesis tomorrow
Discharge planning for tomorrow
Replace potassium
Octreotide drip until tomorrow
Assessment / Plan
Assessment / Plan
79-year-old female presented with lateral and tarry stools also had some bloody spit and some shortness of breath
Ultrasound of the abdomen 06/19/2024-moderate hepatic cirrhosis, perihepatic ascites, gallbladder sludge small left pleural effusion
EKG 07-05-24-sinus rhythm, left axis deviation
CVS: S1-S2 normal
Chest: Decreased breath sounds bilateral bases
Abdomen: Soft, NT / Bowel sounds present
Extremities: No edema.
# GI bleed
Hemodynamically stable
Acute blood loss anemia secondary to GI bleed
EGD 06/18/2024 no significant bleeding small EV
EGD 07/06/2024-grade 2 esophageal varices banded x 3. Portal hypertensive gastropathy. 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
Clear liquid diet
Blood transfusion-status post 2 units of PRBCs-hemoglobin came up to 9.0
IV ceftriaxone, octreotide and Protonix
Ceftriaxone changed to ciprofloxacin-to be completed on 03/04/25
PPI twice daily for 4 weeks then daily afterwards
EGD in 4 weeks
Patient has an appointment with Dr. Quiroz
# History of primary biliary cholangitis
History of decompensation with ascites hepatic encephalopathy, PHG and GAVE and pleural effusion in the past
Last admission GI discussed with [place] hepatology-there was discussions about TIPS but not a candidate for liver transplant
Follows up with Dr. Quiroz at [place]
On Lasix restarted
Also on ursodiol
# Right Pleural Effusion-ultrasound with moderate effusion. Patient states that she has difficulty breathing with ambulation. I have requested interventional radiology to perform thoracentesis for symptom relief. Fluid studies ordered.
# Hypokalemia-replace
# Mild thrombocytopenia-secondary to liver disease. Follow.
# Mild metabolic acidosis likely from CKD and liver disease
# Hypothyroidism-continue Synthroid
# Chronic hypotension on midodrine
# Likely has CKD-possible CKD stage III
# History of pleural effusions
# Emphysema/COPD- PRN nebs
# History of nephrolithiasis
# Chron's disease
# DNI
# DVT prophylaxis-SCDs
Discussed with nursing
Anticipated Discharge: Within 24 hours
Subjective/Interval History
-
Date of Service: July 08, 2024
Objective Data
-
Labs:
Laboratory Results
07/08/24
12:46
WBC 4.7 L
Hgb 9.4 L
Hct 29.7 L
Plt Count 115 L
Sodium 140
Potassium 3.0 L
Chloride 113 H
Carbon Dioxide 19 L
BUN 17
Creatinine 1.2 H
Glucose 72
Calcium 7.2 L
Vital Signs:
Vital Signs
Temp Pulse Resp BP Pulse Ox
97.4 F 65 16 148/56 98
07/08/24 11:25 07/08/24 11:25 07/08/24 11:25 07/08/24 11:25 07/08/24 11:25
I&O
07/07/24 07/08/24 07/09/24
06:59 06:59 06:59
Intake Total 610 / 610 1260 / 1260
Balance 610 / 610 1260 / 1260
[2024-07-08] MEDS: KCL 20 MEQ PO (14:52)
[2024-07-08] MEDS: KCL 270 MEQ IV (14:52)
[2024-07-08 15:25] VITALS: BP 119/52
--- NOTE | 2024-07-08 15:30 | PTCARENOTE ---
pt with potassium value of 3.0 this morning for this nurse. MD made aware. IV potassium ordered to be hung. this nurse attempted, pt stated it was burning. this RN attempted to run concurrently with saline and also to run at slower rate. pt still
verbalizing significant discomfort. VAT team contacted in attempt to get new access site. made aware.
[2024-07-08 15:39] LABS: Magnesium 1.7 mg/dl (1.6-2.3)
[2024-07-08 18:59] VITALS: BP 111/64
[2024-07-08] MEDS: REQUIP 1 MG PO (20:24)
[2024-07-08] MEDS: ZYRTEC 10 MG PO (20:26)
[2024-07-08 23:32] VITALS: BP 128/74
[2024-07-09 03:11] VITALS: BP 135/51
[2024-07-09 05:03] VITALS: BMI 16.7
[2024-07-09] MEDS: SYNTHROID 75 MCG PO (05:50)
[2024-07-09 07:27] LABS: Blood Urea Nitrogen 16 mg/dl (7-17); Calcium 7.4 mg/dl (8.4-10.2); Carbon Dioxide 21 mmol/L (22-30); Chloride 112 mmol/L (98-107); Estimated Creatinine Clearance 29 ml/min; Glucose 95 mg/dl (70-99); Potassium 3.6 mmol/L (3.5-5.1); Sodium 141 mmol/L (135-145)
[2024-07-09 07:32] VITALS: BP 116/58
[2024-07-09] MEDS: FEOSOL 325 MG PO (07:49)
[2024-07-09] MEDS: OSCAL CAL 500 500 MG PO (07:49)
[2024-07-09] MEDS: THERAGRAN 1 TABLET PO (07:49)
[2024-07-09] MEDS: NSS (PRESERVATIVE FREE) 10 ML IV (07:49)
[2024-07-09] MEDS: PROTONIX IV 40 MG IV (07:49)
[2024-07-09] MEDS: LASIX 40 MG PO (07:49)
[2024-07-09] MEDS: ACTIGALL 300 MG PO (07:49)
[2024-07-09] MEDS: SODIUM BICARBONATE 650 MG PO (07:49)
[2024-07-09] MEDS: VITAMIN D3 (cholecalciferol) 25 MCG PO (07:49)
[2024-07-09] MEDS: MAG-TAB SR 84 MG PO (07:49)
[2024-07-09] MEDS: CIPRO 500 MG PO (07:49)
--- NOTE | 2024-07-09 09:48 | W.PN.HOSP.TC ---
Addendum entered and electronically signed by Sunita Nash MD 07/10/24 22:43:
pancytopenia
Original Note:
Today's Communication/Plan
-
Thoracentesis and discharge
Patient is aware that the fluid studies will be pending at discharge and she needs to follow-up with PCP for the results.
Assessment / Plan
Assessment / Plan
79-year-old female presented with lateral and tarry stools also had some bloody spit and some shortness of breath
Ultrasound of the abdomen 06/19/2024-moderate hepatic cirrhosis, perihepatic ascites, gallbladder sludge small left pleural effusion
EKG 07-05-24-sinus rhythm, left axis deviation
CVS: S1-S2 normal
Chest: Decreased breath sounds bilateral bases
Abdomen: Soft, NT / Bowel sounds present
Extremities: No edema.
# GI bleed
Hemodynamically stable
Acute blood loss anemia secondary to GI bleed
EGD 06/18/2024 no significant bleeding small EV
EGD 07/06/2024-grade 2 esophageal varices banded x 3. Portal hypertensive gastropathy. 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
Clear liquid diet
Blood transfusion-status post 2 units of PRBCs-hemoglobin came up to 9.4
IV ceftriaxone, octreotide and Protonix
Ceftriaxone changed to ciprofloxacin-to be completed on 07/12/24
PPI twice daily for 4 weeks then daily afterwards
EGD in 4 weeks
Patient has an appointment with Dr. Quiroz
# History of primary biliary cholangitis
History of decompensation with ascites hepatic encephalopathy, PHG and GAVE and pleural effusion in the past
Last admission GI discussed with [facility]-there was discussions about TIPS but not a candidate for liver transplant
Follows up with Dr. Quiroz at [facility]
On Lasix restarted
Also on ursodiol
# Right Pleural Effusion-ultrasound with moderate effusion. Patient states that she has difficulty breathing with ambulation. I have requested interventional radiology to perform thoracentesis for symptom relief. Fluid studies ordered.
# Hypokalemia-replaced
# Mild thrombocytopenia-secondary to liver disease. Follow.
# Mild metabolic acidosis likely from CKD and liver disease
# Hypothyroidism-continue Synthroid
# Chronic hypotension on midodrine
# Likely has CKD-possible CKD stage III
# History of pleural effusions
# Emphysema/COPD- PRN nebs
# History of nephrolithiasis
# Chron's disease
# DNI
# DVT prophylaxis-SCDs
Discussed with nursing
Call interventional radiology to try and get the patient in earlier today so she can be discharged
Anticipated Discharge: Today
Subjective/Interval History
-
Date of Service: July 09, 2024
Objective Data
-
Labs:
Laboratory Results
07/09/24
06:05
Sodium 141
Potassium 3.6
Chloride 112 H
Carbon Dioxide 21 L
BUN 16
Creatinine 1.1 H
Glucose 95
Calcium 7.4 L
Vital Signs:
Vital Signs
Temp Pulse Resp BP Pulse Ox
97.7 F 68 18 116/58 96
07/09/24 07:32 07/09/24 07:32 07/09/24 07:32 07/09/24 07:32 07/09/24 07:32
I&O
07/08/24 07/09/24 07/10/24
06:59 06:59 06:59
Intake Total 1260 / 1260 2570 / 2570
Balance 1260 / 1260 2570 / 2570
[2024-07-09] MEDS: KCL 40 MEQ PO (09:53)
[2024-07-09] MEDS: SANDOSTATIN IV (09:56)
[2024-07-09 10:00] VITALS: BP 129/63; BP_SYST 55
--- NOTE | 2024-07-09 11:11 | W.DS.TRANS ---
Addendum entered and electronically signed by Sunita Nash MD 07/09/24 15:45:
Dictation- [id number]
Original Note:
DC Summary - [facility]
-
Discharge Instructions:
Discharge Diagnosis/Procedures GI bleed
Primary biliary cirrhosis
Right pleural effusion with thoracentesis
2024 1 L of fluid removed
Hypokalemia
Thrombocytopenia
Hypothyroidism
Chronic hypotension on midodrine
Chronic kidney disease
Emphysema
Diet Restrict fluids to 64 oz,2 Gram Sodium
Activity As tolerated
Driving Restrictions As prior to admission
Other Services VN
Instructions:
Stand-Alone Forms:
Changes to Home Medications: Yes
Discharge Medications:
DC Medications w/original date entered in [facility]
Ferrous Glycinate 28 mg PO DAILY Supplement 06/18/24
acetaminophen 325 mg tablet (Tylenol) 650 mg PO Q4HPRN PRN mild pain 06/18/24
carboxymethylcellulose 0.5 %-glycerin 0.9 % eye drops (Refresh Optive) 1 drp BOTH EYES TIDPRN PRN dry eyes 06/18/24
furosemide 40 mg tablet (Lasix) 40 mg PO DAILY Fluid Retention/Swelling 06/18/24
levocetirizine 5 mg tablet 5 mg PO HS Allergies 06/18/24
levothyroxine 75 mcg tablet (Synthroid) 75 mcg PO DAILY Thyroid 06/18/24
magnesium oxide 250 mg PO DAILY Electrolyte Repletion 06/18/24
midodrine 5 mg tablet 5 mg PO BIDPRN PRN if BP<120 06/18/24
ropinirole 1 mg tablet 1 mg PO HS Neurological Condition 06/18/24
therapeutic multivitamin 1 tab PO DAILY Supplement 06/18/24
tramadol 50 mg tablet 50 mg PO TIDPRN PRN moderate pains 06/18/24
albuterol sulfate 90 mcg/actuation aerosol inhaler 2 puff inhalation R Q4HPRN PRN sob 07/05/24
calcium carbonate (Calcium 600) 600 mg PO DAILY Supplement 07/05/24
cholecalciferol (vitamin D3) 25 mcg (1,000 unit) tablet (Vitamin D3) 25 mcg PO DAILY Supplement 07/05/24
ursodiol 300 mg capsule 300 mg PO TID Gastrointestinal Issue 07/05/24
pantoprazole 40 mg tablet,delayed release 40 mg PO BID Gastrointestinal Issue 07/07/24
ciprofloxacin HCl 500 mg tablet 500 mg PO DAILY Gastrointestinal issue #3 tabs 07/09/24
sodium bicarbonate 650 mg tablet 650 mg PO DAILY Kidney Disease #30 tabs 07/09/24
Home Medication Changes
new
ciprofloxacin HCl 500 mg tablet 500 mg PO DAILY Gastrointestinal issue #3 tabs 07/09/24
sodium bicarbonate 650 mg tablet 650 mg PO DAILY Kidney Disease #30 tabs 07/09/24
Pending Results: Yes
Additional Pending Results:
Pleural fluid studies pending
--- NOTE | 2024-07-09 11:22 | CM ---
Reviewed the chart notes and spoke with the patient at the bedside. IMM reviewed. The patient is for discharge to home today with resumption of [facility]. Spouse will provide transportation home. CM continues to be available to
patient/family and is monitoring medical plan for needs at discharge.
Plan: Discharge to home with resumption of [facility].
[facility]
[2024-07-09 11:43] VITALS: BP 137/60
[2024-07-09 12:25] LABS: Body Fluid Mononuclear 88.7 %; Body Fluid Polymorphonuclear 11.3 %; Body Fluid WBC 488 /CUMM
[2024-07-09 12:28] LABS: Body Fluid Second Tech AMA
[2024-07-09 12:54] LABS: Body Fluid Glucose 129 mg/dl; Body Fluid LDH 96 U/L; Body Fluid Protein < 2.0 g/dl
--- NOTE | 2024-07-10 11:55 | PN.CDI ---
CDI
- -
CDI:
Physician Documentation Request
Admit Date: 07/06/24 00:09
Dear Doctor Charity,
Patient admitted for GI bleed.
Laboratory Tests
07/06/24 07/07/24 07/08/24
09:53 05:55 12:46
WBC 4.7 L 4.5 L 4.7 L
RBC 3.41 L 3.25 L 3.38 L
Hgb 9.5 L D 9.0 L 9.4 L
Plt Count 116 L D 115 L 115 L
Based on the above, could you clarify in the progress notes, the appropriate diagnosis, if significant, that supports the above abnormalities and additional evaluation, monitoring and/or treatment rendered:
Pancytopenia
Abnormal lab value insignificant
Other
Use of terms such as suspected, likely, concern for, or probable (associated with a specific diagnosis that is being evaluated, monitored, or treated as if it exists) are acceptable and can be coded in the inpatient setting, when documented at the
time of discharge.
Thank you,
Megan Lovett RN, BSN
CDI Specialist
Available via [place] text
Please use your independent medical judgment in providing your response.
--- NOTE | 2024-07-10 12:01 | PN.CDI ---
Addendum entered and electronically signed by Sunita Nash MD 07/10/24 22:44:
Documentation is complete at this time.
Original Note:
CDI
- -
CDI:
Physician Documentation Request
Admit Date: 07/06/24 00:09
Dear Doctor Charity,
Patient admitted for GI bleed.
Please review the following and provide your response in the progress notes.
Clinical Indicators:
Height: 5' 5'
Weight: 100 lbs
BMI: 16.7
If possible, please provide an associated diagnosis related to the abnormal BMI, such as:
Underweight
Cachectic
BMI is not significant
Other
BMI < or = to 19.9
Underweight
Weight Loss
Cachectic
Anorexia
Use of terms such as suspected, likely, concern for, or probable (associated with a specific diagnosis that is being evaluated, monitored, or treated as if it exists) are acceptable and can be coded in the inpatient setting, when documented at the
time of discharge.
Thank you,
Megan Lovett RN, BSN
CDI Specialist
Available via [place] text
Please use your independent medical judgment in providing your response.
== END 2024-07-09 12:27 | disposition home health service (06) | DRG 378 ==
LOC: 2 NORTH 00:09
PROVIDERS: Emergency Medicine; Nurse Practitioner; Radiology Vascular & Interventional Radiology; ADMITTING PHYSICIAN Internal Medicine; ATTENDING PHYSICIAN Hospitalist; CONSULT PHYSICIAN Internal Medicine Gastroenterology; EMERGENCY PHYSICIAN Student in an Organized Health Care Education/Training Program; FAMILY PHYSICIAN Family Medicine
PROC: 30233N1 Transfusion of Nonautologous Red Blood Cells into Peripheral Vein, Percutaneous Approach (ICD-10-PCS; 2024-07-06)
PROC: 0W3P8ZZ Control Bleeding in Gastrointestinal Tract, Via Natural or Artificial Opening Endoscopic (ICD-10-PCS; 2024-07-06)
PROC: 06L38CZ Occlusion of Esophageal Vein with Extraluminal Device, Via Natural or Artificial Opening Endoscopic (ICD-10-PCS; 2024-07-06)
PROC: 0W993ZZ Drainage of Right Pleural Cavity, Percutaneous Approach (ICD-10-PCS; 2024-07-09)
DX: K31.811 Angiodysplasia of stomach and duodenum with bleeding (principal); D61.818 Other pancytopenia; D62 Acute posthemorrhagic anemia; K76.6 Portal hypertension; J90 Pleural effusion, not elsewhere classified; E87.20 Acidosis, unspecified; I85.00 Esophageal varices without bleeding; K31.89 Other diseases of stomach and duodenum; K74.3 Primary biliary cirrhosis; E87.6 Hypokalemia; E03.9 Hypothyroidism, unspecified; N18.30 Chronic kidney disease, stage 3 unspecified; J43.9 Emphysema, unspecified; Z87.891 Personal history of nicotine dependence
CPT/HCPCS: 88305; 32555; 71045; 71046; 76604; 80048; 80053; 82945; 83615; 83735; 83986; 84157; 85025; 85027; 85610; 85730; 86850; 86900; 86901; 86920; 87015; 87070; 87116; 87205; 88112; 89051; 93005; 96361; 96374; 96375; 99291; P9016

== ENCOUNTER 2024-10-01 13:47 | Inpatient (IN) | payer OTHER, SELFPAY ==
[2024-10-01] VITALS (21 sets, daily range): BP systolic 91–138; BP diastolic 35–98; PULSE 79–86; BMI 16.8; BMI 16.5
--- NOTE | 2024-10-01 08:55 | ED.GENMED ---
History of Present Illness
General
Chief Complaint: Rectal Bleeding
Source: patient, records and spouse
Exam Limitations: none
Time Seen by Provider: 10/01/24 08:25
Nursing documentation reviewed up to this point in time: agreed with
History of Present Illness
History of Present Illness:
79-year-old female with a past medical history of COPD, chronic kidney disease, primary biliary cirrhosis who presents to the emergency department with her for evaluation of GI bleeding. Of note patient reports that she was admitted at a
hospital in [place] 2 weeks ago for identical symptoms and had endoscopy at that time. She has had multiple visits to this hospital for similar issues in the past and follows with Dr. Tatum here for gastroenterology. She presents today for evaluation
of hematemesis and black tarry stools. She reports yesterday morning she had 1 episode of bright red hematemesis. She says that throughout the day yesterday she had multiple episodes of black tarry diarrhea. She had 3 additional episodes this
morning and this morning is feeling lightheaded and short of breath with exertion which prompted her to come to the ER. Denies any chest pain. She reports mild general abdominal discomfort. She denies any other issues. Review of medication list
shows she is not on any blood thinners.
Past History
Past History
ED Past Medical History: Hypothyroidism and Other (Primary biliary cirrhosis, GI bleed, Crohn's disease)
Social History
Tobacco: Non-smoker
Alcohol: None
Drug: None
Personal:
Living: with family
Review of Systems
Review of Systems
All Other Systems: ROS reviewed and negative except as documented in HPI and ROS
Constitutional: Reports fatigue; Denies fever
Respiratory: Reports trouble breathing
Cardiac: Denies chest pain or palpitations
ABD/GI: Reports abdominal pain, nausea, vomiting and black stools
: Denies flank pain
Musculoskeletal: Denies neck pain or back pain
Neurological: Denies headache or numbness
Phy Exam
Physical Exam
Physical Exam:
General: Awake, alert, oriented x3; no acute distress
Head: Normocephalic, atraumatic
Eyes: Conjunctiva normal, EOMI
Throat: Airway intact, handling secretions
Neck: Trachea midline, supple without meningismus
Lungs: Breathing comfortably no signs of respiratory distress
Heart: Regular rate and rhythm, no murmurs, gallops, or rubs
Abd: Soft, non distended, very mild diffuse tenderness
Rectal: Black stool heme positive
Neuro: No gross deficits
Skin: Somewhat pale, no rash
Extremities: Warm and well-perfused
Scores
Heart Failure Risk
Heart Failure Risk Score: Not Applicable
Heart Score for Chest Pain Patients
STEMI patient?: Not applicable
Withdrawal Assessment of Alcohol
Withdrawal Assessment Completed?: Not applicable
Course
Orders/Labs/Results
Orders:
Orders
10/01/24 08:28
Pantoprazole [Protonix IV] 40 mg IV NOW STA
10/01/24 08:44
Pantoprazole [Protonix IV] 80 mg IV NOW STA
10/01/24 08:54
Type+Screen Urgent
Complete Blood Count/With Diff Urgent
Comprehensive Metabolic Panel Urgent
PTT Urgent
Prothrombin Time Urgent
Abnormal Lab Results
10/01/24
08:54
RBC 2.96 L 10^6/uL
(4.20-5.40)
Hgb 8.5 L g/dL
(12.0-16.0)
Hct 27.1 L %
(37.0-47.0)
MCHC 31.4 L g/dL
(33.0-37.0)
RDW 15.6 H %
(11.5-14.5)
MPV 11.8 H fL
(7.4-10.4)
Absolute Monos (auto) 0.7 H 10^3/uL
(0.1-0.6)
Chloride 112 H mmol/L
(98-107)
BUN 44 H mg/dl
(7-17)
Creatinine 1.2 H mg/dL
(0.6-1.0)
Glucose 126 H mg/dl
(70-99)
AST 44 H U/L
(14-36)
Alkaline Phosphatase 311 H U/L
(38-126)
Albumin 2.9 L g/dl
(3.5-5.0)
10/01/24 08:54
10/01/24 08:54
Vital Signs
Initial and Last Documented VS:
Initial Vital Signs
Temp Pulse Resp BP Pulse Ox
36.5 C 84 18 110/47 99
10/01/24 08:18 10/01/24 08:18 10/01/24 08:18 10/01/24 08:18 10/01/24 08:18
Last Documented Vital Signs
Temp Pulse Resp BP Pulse Ox
36.5 C 84 18 110/47 99
10/01/24 08:18 10/01/24 08:18 10/01/24 08:18 10/01/24 08:18 10/01/24 08:18
MDM/Problems Addressed
Differential Diagnosis Includes:
Bleeding ulcer, gastritis, varices, AVM, etc
MDM/Problems Addressed:
79-year-old female presents to the ER for evaluation of black stools. History of GI bleeding and multiple visits for this in the past. Mildly hypertensive with diastolic blood pressure 47 but normal heart rate. Rest of vitals normal. Exam as
above. Will place large-bore IV send labs including a CBC and a CMP, coags, type and screen. Treat with IV PPI. Patient consented for blood transfusion in case of need. Monitor closely reassess after the above.
Labs reviewed: CBC shows anemia with hemoglobin of 8.5 down from prior value of 9.4. INR normal. CMP shows elevated BUN. Vital signs remained stable. No additional bleeding here on initial observation. Hold on blood transfusion with hemoglobin
over 7. Will plan to admit for monitoring of bleeding, trending of hemoglobins. Given IV PPI. Case discussed with hospitalist for admission.
Chronic conditions affecting care:
Cirrhosis
*Pulse Oximetry
Patient hypoxic: no
*Critical Care Note
Total Time (30-74mins, 75-104mins- exclusive of procedures): Not Applicable
Data Reviewed
Review of Other/Old Records Reveals: Labs and Records
Source: patient, records and spouse
Patient Management
Discussion with other providers: Hospitalist (Discussed with hospitalist)
Escalation/DeEscalation of care consider admission/obs:
Admission indicated
ED Attending Note
-
Portions of this chart may have been created with voice recognition software.� Occasional wrong word or��sound alike� substitutions may have occurred due to the inherent limitations of voice recognition software.
Discharge Plan
Departure
Patient Disposition: Admit
Date of Disposition: 10/01/24
Time of Disposition: 10:02
Admit to doctor: Irma
Presentation/result/management discussed w/ accepting MD/DO: Hospitalist
Discharge Problem:
Acute upper gastrointestinal bleeding
Prescriptions:
No Action
ropinirole 1 mg Tablet
1 mg PO HS
furosemide [Lasix] 40 mg Tablet
40 mg PO DAILY
acetaminophen [Tylenol] 325 mg Tablet
650 mg PO Q4HPRN PRN (Reason: mild pain)
midodrine 5 mg Tablet
5 mg PO BIDPRN PRN (Reason: if BP<120)
therapeutic multivitamin Tablet
1 tab PO DAILY
tramadol 50 mg Tablet
50 mg PO TIDPRN PRN (Reason: moderate pains)
levothyroxine [Synthroid] 75 mcg Tablet
75 mcg PO DAILY
magnesium oxide 250 mg magnesium Tablet
250 mg PO DAILY
Refresh Optive 0.5-0.9 % Drops
1 drp BOTH EYES TIDPRN PRN (Reason: dry eyes)
levocetirizine 5 mg Tablet
5 mg PO HS
Ferrous Glycinate
28 mg PO DAILY
calcium carbonate [Calcium 600] 600 mg calcium (1,500 mg) Tablet
600 mg PO DAILY
ursodiol 300 mg Capsule
300 mg PO TID
albuterol sulfate 90 mcg/actuation Hfa Aerosol Inhaler
2 puff INHALATION R Q4HPRN PRN (Reason: sob)
cholecalciferol (vitamin D3) [Vitamin D3] 25 mcg (1,000 unit) Tablet
25 mcg PO DAILY
pantoprazole 40 mg tablet,delayed release (DR/EC)
40 mg PO BID
ciprofloxacin HCl 500 mg Tablet
500 mg PO DAILY Qty: 3 0RF
sodium bicarbonate 650 mg Tablet
650 mg PO DAILY Qty: 30 0RF
Referrals:
Nelson Narayan DO [Family Provider] -
Interventions
Interventions:
*Risk Screen - Suicide Last Done: 10/01/24 08:18
*General Assessment Last Done: 10/01/24 08:18
*Neglect/Abuse Screening Last Done: 10/01/24 08:18
*ED- Fall Risk Assessment Last Done: 10/01/24 09:13
*ED COVID-19 Vaccine History Last Done: 10/01/24 08:55
XO-Efqsdu-Gzfqsknuqp Assessment Last Done: 10/01/24 08:41
ED- Cardiac Assessment Last Done: 10/01/24 08:41
ED- Pulmonary Assessment Last Done: 10/01/24 08:41
Discharge Date and Time
Print Language: [id number]
[2024-10-01] MEDS: PROTONIX IV 80 MG IV (09:02)
[2024-10-01 09:12] LABS: % Basophils 1.1 % (0-2); % Eosinophils 2.2 % (0-6); % Immature Granulocytes 0.4 % (0-0.5); % Lymphocytes 22.1 % (20.5-51.1); % Monocytes 8.8 % (1.7-9.3); % Neutrophils 65.4 % (42.2-75.2); Absolute Basophils 0.1 10^3/uL (0-0.2); Absolute Eosinophils 0.2 10^3/uL (0-0.7); Absolute Lymphocytes 1.6 10^3/uL (1.2-3.4); Absolute Monocytes 0.7 10^3/uL (0.1-0.6); Absolute Neutrophils 4.9 10^3/uL (1.4-6.5); Hematocrit 27.1 % (37.0-47.0); Hemoglobin 8.5 g/dL (12.0-16.0); Mean Corp Hgb Conc. 31.4 g/dL (33.0-37.0); Mean Corpuscular Hgb 28.7 pg (27.0-31.0); Mean Corpuscular Volume 91.6 fL (81.0-99.0); Mean Platelet Volume 11.8 fL (7.4-10.4); Nucleated Red Blood Cells % 0 %; Platelet Count 137 10^3/uL (130-400); Red Blood Cell Count 2.96 10^6/uL (4.20-5.40); Red Cell Dist. Width 15.6 % (11.5-14.5); White Blood Cell Count 7.4 10^3/uL (4.8-10.8)
[2024-10-01 09:21] LABS: APTT 25.6 Sec (23.4-35.0); INR 0.98; PT 13.3 Sec (11.4-14.6)
[2024-10-01 09:25] LABS: ALT (SGPT) 24 U/L (0-35); AST (SGOT) 44 U/L (14-36); Albumin 2.9 g/dl (3.5-5.0); Alkaline Phosphatase 311 U/L (38-126); Blood Urea Nitrogen 44 mg/dl (7-17); Calcium 9.2 mg/dl (8.4-10.2); Carbon Dioxide 23 mmol/L (22-30); Chloride 112 mmol/L (98-107); Estimated Creatinine Clearance 27 ml/min; Glucose 126 mg/dl (70-99); Sodium 144 mmol/L (135-145); Total Bilirubin 0.7 mg/dl (0.2-1.3); Total Protein 6.3 g/dl (6.3-8.2); eGFR 45.76
[2024-10-01] MEDS: NSS 1000 IV (10:12)
--- NOTE | 2024-10-01 10:20 | CON.GI ---
Addendum entered and electronically signed by Michael Melvin MD 10/01/24 12:12:
Patient seen and examined, agree inspectors note. 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
with recurrent GI bleeding. She has had multiple admissions in evaluation for bleeding, including endoscopy here in June with small varices, diffuse portal gastropathy on endoscopy from June. Endoscopy in July 06 showed varices that were
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 She then has been in [place] and had 2 subsequent EGDs which were negative for varices, and had no further interventions done at that time. She now presents with hematemesis yesterday
and melena. Her last episode of melena was around 7 this morning. She does have some mild nausea though no further vomiting. She describes some right-sided abdominal pain which she states has been intermittent and chronic though this is lasting
longer than usual. On exam her hemoglobin was 8.5 which is slightly lower than her discharge in July. On exam she has mild right sided abdominal tenderness and likely mild ascites.
1. GI bleed: With history of what sounds like GAVE as a primary culprit, status post APC 1 time in the past, also with varices status post banding, though multiple other endoscopies without significant esophageal or gastric varices including 2
recently in [place]. She had seen Dr. Quiroz and was considering repeat EGD with APC as an outpatient, was considered poor candidate for TIPS. She is currently hemodynamically stable, has not had any further vomiting, and unfortunately ate
breakfast today. At this point we will continue supportive care, PPI, octreotide, trend H&H. Will tentatively plan EGD tomorrow morning with hopeful APC, sooner if signs of more brisk active bleeding. Her INR and platelet count are normal.
2. Cirrhosis: Secondary to PBC, decompensated with ascites and bleeding as described above. Will continue Kathi and diuretics, will start ceftriaxone now given GI bleeding. Await ultrasound given her right sided discomfort, may need to consider
paracentesis.
Original Note:
Consultation
-
Date/Time Consultation Requested: 10/01/24 1015
Date/Time Consultation Performed: 10/01/24 1020
Requesting Provider: Dr. Wadsworth
Performing Provider: Dr. Melvin/JOHNY Cristina
Reason for Consultation: GI bleed
Medical History
Chief Complaint / HPI
Chief Complaint: vomiting blood and black stools
History of Present Illness:
79 y/o female with PMH of hypothyroid, Pleural effusions, CKD, upper GI bleed and Decompensated cirrhosis secondary to PBC (Ascites, EGD, grade 2 varices s/p banding x 3 07/06/24, PHG/GAVE and history of pleural effusions unclear if related to prior
hepatic hydrothorax), Chronic hypotension on midodrine seen by Dr. Trae Quiroz at [facility] last visit 09/27/24, previously seen by Dr. Walls at [facility] in the past, yet to see Dr. Tatum in the office (appt 11/01/24) who was
hospitalized in [place] for acute UGI bleed x 2 and had EGD x 2 without varices, transfused both times 1 unit PRBC 10 days apart with last hospitalization 2 weeks ago. Prior to that was last seen at for UGIB and had EGD on 07/06/24 endoscopy done
which showed grade 2 esophageal varices, completely eradicated and banded x 3, portal hypertensive gastropathy, multiple bleeding and dysplastic lesions in the stomach treated with APC, during that hospitalization she was given 2 units of PRBC,
treated with Octreotide gtt x 72 hr, Pantoprazole BID and Ceftriaxone for 5 days. She also had a right pleural effusion s/p thoracentesis. Her MELD on 07/06/24 was 9. Prior to that she had admission to 06/18/24 for UGIB. At that time the patient
had EGD on 06/18/24 that showed significant old or fresh blood throughout the entire upper GI tract. Very small esophageal varices which completely flattened with insufflation and not source of patient's previous presentation. I did speak to [facility] during June admission it was mentioned that they had a conversation about possible TIPS with the patient but there was concern about post TIPS hepatic encephalopathy and other issues with her comorbidities and have determined she is
not a candidate. They did feels that she was too frail to tolerate Lactulose, therefore she was started on Xifaxan however this was cost prohibitive. She has not a transplant candidate. Currently she present to the ER after having acute onset of
vomiting bright red blood last night associated with some clots. No further vomiting since that time. Also started with melena last evening. She did not present to the ER last night as she states that she was tired. She was hoping that it would
go away. She continued to have melena and proceed to the emergency room this morning. She also had new onset epigastric discomfort which she has never had before. She did eat breakfast this morning which consisted of orange juice and a small
amount of oatmeal. She denies any fevers, chills, hematochezia, dysphagia or dyne aphasia. No early satiety or unintentional weight loss. She denies any chest pain, dizziness or diaphoresis. She did have some mild shortness of breath this
morning.
Past Medical History
Past Medical History: Hypothyroidism and Other (Primary Biliary Cirrhosis)
Social History
Tobacco: Non-Smoker
Alcohol: None
Drug: None
Personal:
Living: With Family
Family History
Family History: Other (No family hx GI malignancy or IBD)
Allergies / Home Medications
Allergy/AdvReac Type Severity Reaction Status Date / Time
No Known Allergies Allergy Verified 10/01/24 08:17
�Medication �Instructions �Recorded
Ferrous Glycinate 28 mg PO DAILY Supplement 06/18/24
acetaminophen 325 mg tablet 650 mg PO Q4HPRN PRN mild pain 06/18/24
(Tylenol)
carboxymethylcellulose 0.5 1 drp BOTH EYES TIDPRN PRN dry eyes 06/18/24
%-glycerin 0.9 % eye drops
(Refresh Optive)
furosemide 40 mg tablet (Lasix) 40 mg PO DAILY Fluid 06/18/24
Retention/Swelling
levocetirizine 5 mg tablet 5 mg PO HS Allergies 06/18/24
levothyroxine 75 mcg tablet 75 mcg PO DAILY Thyroid 06/18/24
(Synthroid)
magnesium oxide 250 mg PO DAILY Electrolyte 06/18/24
Repletion
midodrine 5 mg tablet 5 mg PO BIDPRN PRN if BP<120 06/18/24
ropinirole 1 mg tablet 1 mg PO HS Neurological Condition 06/18/24
therapeutic multivitamin 1 tab PO DAILY Supplement 06/18/24
tramadol 50 mg tablet 50 mg PO TIDPRN PRN moderate pains 06/18/24
albuterol sulfate 90 mcg/actuation 2 puff inhalation R Q4HPRN PRN sob 07/05/24
aerosol inhaler
calcium carbonate (Calcium 600) 600 mg PO DAILY Supplement 07/05/24
cholecalciferol (vitamin D3) 25 25 mcg PO DAILY Supplement 07/05/24
mcg (1,000 unit) tablet (Vitamin
D3)
ursodiol 300 mg capsule 300 mg PO TID Gastrointestinal 07/05/24
Issue
pantoprazole 40 mg tablet,delayed 40 mg PO BID Gastrointestinal Issue 07/07/24
release
sodium bicarbonate 650 mg tablet 650 mg PO DAILY Kidney Disease #30 07/09/24
tabs
Review of Systems
-
All other systems: A 12 pt ROS was Negative except as stated above in HPI
Vital Signs
Temp Pulse Resp BP Pulse Ox
97.7 F 84 18 110/47 99
10/01/24 08:18 10/01/24 08:18 10/01/24 08:18 10/01/24 08:18 10/01/24 08:18
Physical Exam
Exam
General: No Apparent Distress
HEENT: Anicteric
Respiratory: Clear (Anterior)
Cardiac: Regular Rhythm
GI: Soft, Non Distended, Normal Bowel Sounds and Tender (Mild tenderness epigastric/right upper quadrant)
Rectal: Hem Positive (Per ER heme positive black stool)
Musculoskeletal: No Edema
Skin: Warm and Dry
Neuro: AO x 3
Psych: Calm
Results
WBC 7.4 10^3/uL (4.8-10.8) 10/01/24 08:54
Hgb 8.5 g/dL (12.0-16.0) L 10/01/24 08:54
Hct 27.1 % (37.0-47.0) L 10/01/24 08:54
MCV 91.6 fL (81.0-99.0) 10/01/24 08:54
Plt Count 137 10^3/uL (130-400) 10/01/24 08:54
Absolute Neuts (auto) 4.9 10^3/uL (1.4-6.5) 10/01/24 08:54
PT 13.3 Sec (11.4-14.6) 10/01/24 08:54
INR 0.98 10/01/24 08:54
APTT 25.6 Sec (23.4-35.0) 10/01/24 08:54
Sodium 144 mmol/L (135-145) 10/01/24 08:54
Potassium 4.0 mmol/L (3.5-5.1) 10/01/24 08:54
Chloride 112 mmol/L (98-107) H 10/01/24 08:54
Carbon Dioxide 23 mmol/L (22-30) 10/01/24 08:54
BUN 44 mg/dl (7-17) H 10/01/24 08:54
Creatinine 1.2 mg/dL (0.6-1.0) H 10/01/24 08:54
Calcium 9.2 mg/dl (8.4-10.2) 10/01/24 08:54
Total Bilirubin 0.7 mg/dl (0.2-1.3) 10/01/24 08:54
AST 44 U/L (14-36) H 10/01/24 08:54
ALT 24 U/L (0-35) 10/01/24 08:54
Alkaline Phosphatase 311 U/L (38-126) H 10/01/24 08:54
Diagnostic Image Results:
None this admission
Prior GI Procedures:
EGD approximately 14 days ago ([facility]): Per patient and no varices. No interventions performed. Was transfused 1 unit packed red blood cells
EGD approximately 24 days ago ([facility]): Per patient and no varices. No interventions performed. Was transfused 1 unit packed red blood cells.
EGD: 07/06/2024 (Dr. Tatum) - Grade II esophageal varices. Completely eradicated.
Banded x3.
- Z-line irregular, 38 cm from the incisors.
- Portal hypertensive gastropathy.
- Multiple bleeding angiodysplastic lesions in the
stomach. Treated with argon plasma coagulation (APC).
- Normal examined duodenum.
- No specimens collected.
EGD: 06/18/24 (Dr. Ashley) - Normal proximal esophagus.
- Grade I and small (< 5 mm) esophageal varices. No
banding was performed as these completely flattened
with insufflation.
- Mucosal nodule found in the esophagus at the GE
junction without any signs of active bleeding. No
biopsies were performed given concern for recent upper
GI bleeding.
- Bilious gastric fluid in the stomach. This was
suctioned and cleared.
- Mild, diffuse portal hypertensive gastropathy in the
entire stomach.
- Otherwise, normal stomach on direct and retroflexion
views. No evidence of gastric varices.
- Normal examined duodenum up to the third portion of
the duodenum without any ulcerations, duodenal
varices, or other bleeding lesions.
- The examination was otherwise normal.
- No specimens collected.
- Will need to obtain records from prior EGD 03/2024
given previous concern for prior gastric nodule at the
GE junction. Consider EGD/EUS as an outpatient if not
previously performed
- Recommend repeat EGD in 1 year for EV surveillance
Assessment / Plan
-
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
hepatic hydrothorax), Chronic hypotension on midodrine seen by Dr. Trae Quiroz at [facility] last visit 09/27/24, previously seen by Dr. Walls at [facility] in the past, yet to see Dr. Tatum in the office (appt 11/01/24) who was
hospitalized in [place] for acute UGI bleed x 2 and had EGD x 2 without varices, transfused both times 1 unit PRBC 10 days apart with last hospitalization 2 weeks ago. Prior to that was last seen at for UGIB and had EGD on 07/06/24 endoscopy done
which showed grade 2 esophageal varices, completely eradicated and banded x 3, portal hypertensive gastropathy, multiple bleeding and dysplastic lesions in the stomach treated with APC, during that hospitalization she was given 2 units of PRBC,
treated with Octreotide gtt x 72 hr, Pantoprazole BID and Ceftriaxone for 5 days. She also had a right pleural effusion s/p thoracentesis. Her MELD on 07/06/24 was 9. Prior to that she had admission to 06/18/24 for UGIB. At that time the patient
had EGD on 06/18/24 that showed significant old or fresh blood throughout the entire upper GI tract. Very small esophageal varices which completely flattened with insufflation and not source of patient's previous presentation. Currently presents
to the emergency room starting with hematemesis of red blood with small clots last evening. None further. Having melena since last evening. Patient is not a TIPS candidate per Dr. Quiroz. Previously discussed with his PA Graciela Meadows. Also
confirmed by patient and . Last EGD performed was 2 weeks ago in [place]. Per patient and no banding, or therapeutics performed during endoscopy. Patient states that she was not discharged on any antibiotics on either admission in
[place]. Currently at present time patient having epigastric discomfort which is new from all prior visits. Having some mild shortness of breath. Vital signs stable. WBC 7.4, hemoglobin 8.5, hematocrit 27.1, platelets 137, PT 13.3, INR 0.98,
sodium 144, potassium 4.0, chloride 112, CO2 23, BUN 44, creatinine 1.2, glucose 126, total bilirubin 0.7, AST 44, ALT 24, alk phos 311, albumin 2.9.
Impression:
Upper GI bleed, hematemesis and melena
-> last EGD for upper GI bleeding approximately 14 days ago ([facility]), prior to that 24 days ago ([facility]), then 07/06/2024 ([facility]), 06/18/24 ([facility])
-> History of grade 2 varices status post banding times 3 (07/06/24), subsequent EGDs x 2 without any varices per patient and .
-> Portal hypertensive gastropathy/GAVE
Decompensated cirrhosis secondary to PBC (ascites, grade 2 varices status post banding x 3 (07/06/2024), portal hypertensive gastropathy/GAVE, history of right pleural effusion)
-> MELD 3.0= 10
Chronic hypotension on midodrine
Plan:
-NPO except meds
-Transfuse to keep Hgb > 7
-Continue Protonix gtt
-Would give octreotide bolus and drip
-Ensure 2 large bore IV access at all times
-Start ceftriaxone 1 gm IV daily for 7 days.
-Plan on EGD, timing to be determined. Patient did eat breakfast this morning.
-Trend Hgb q 6 hrs.
-Daily CBC, CMP, INR
-Further recommendations to be forthcoming
-Obtain records from prior EGD ([facility]).
-Kathi to be continued
-Can hold Lasix unless with signs of fluid today.
-Daily weights
-Recommend ultrasound the abdomen and chest x-ray to evaluate for pleural effusion and ascites.
-Further recommendations to be forthcoming
-
-
Thank you for consultation and allowing me to participate in the patient's care. Please call the operational test mechanic GI physician during the after hours with any questions or concerns.
[2024-10-01] MEDS: ROCEPHIN 1000 MG IV (11:53)
[2024-10-01] MEDS: SANDOSTATIN 500.6 MCG IV ×2 (11:54→23:37)
[2024-10-01] MEDS: STERILE WATER FOR INJECTION 10 ML IV (11:54)
[2024-10-01] MEDS: SANDOSTATIN 50 MCG IV (12:05)
--- NOTE | 2024-10-01 13:10 | HPS.HSE ---
Family Physician
-
Family Physician: Nelson Narayan
Chief Complaint
-
Hematemesis and melena
History of Present Illness
79 y/o F with PMHx:
Cirrhosis due to PBC
GAVE, APC x 1 in the past
Esophageal varices s/p banding
Hypothyroidism
who p/w CC hematemesis and melena. Patient reports yesterday morning she had hematemesis and then in the afternoon developed melena. She has chronic abdominal pain which has been worse since yesterday. Denies any chest pain but reports associated
shortness of breath. She also reports lightheadedness with standing.
Medical History
Past Medical History
Past Medical History: Reports Other (Cirrhosis due to PBC GAVE, APC x 1 in the past Esophageal varices s/p banding Hypothyroidism)
Past Surgical History: Reports Other (N/A)
Social History
Tobacco: Non-smoker
Alcohol: None
Drug: None
Family History
Family History: Not pertinent
Allergies / Home Medications
Allergies reflects when Allergies were last updated in [employer].
Home Medications with original date entered in [facility]
Allergy/Medication List:
Allergies
Allergy/AdvReac Type Severity Reaction Status Date / Time
No Known Allergies Allergy Verified 10/01/24 08:17
Home Medications
Ferrous Glycinate 28 mg PO DAILY Supplement 06/18/24
acetaminophen 325 mg tablet (Tylenol) 650 mg PO Q4HPRN PRN mild pain 06/18/24
carboxymethylcellulose 0.5 %-glycerin 0.9 % eye drops (Refresh Optive) 1 drp BOTH EYES TIDPRN PRN dry eyes 06/18/24
furosemide 40 mg tablet (Lasix) 40 mg PO DAILY Fluid Retention/Swelling 06/18/24
levocetirizine 5 mg tablet 5 mg PO HS Allergies 06/18/24
levothyroxine 75 mcg tablet (Synthroid) 75 mcg PO DAILY Thyroid 06/18/24
magnesium oxide 250 mg PO DAILY Electrolyte Repletion 06/18/24
midodrine 5 mg tablet 5 mg PO BIDPRN PRN if BP<120 06/18/24
ropinirole 1 mg tablet 1 mg PO HS Neurological Condition 06/18/24
therapeutic multivitamin 1 tab PO DAILY Supplement 06/18/24
tramadol 50 mg tablet 50 mg PO TIDPRN PRN moderate pains 06/18/24
albuterol sulfate 90 mcg/actuation aerosol inhaler 2 puff inhalation R Q4HPRN PRN sob 07/05/24
calcium carbonate (Calcium 600) 600 mg PO DAILY Supplement 07/05/24
cholecalciferol (vitamin D3) 25 mcg (1,000 unit) tablet (Vitamin D3) 25 mcg PO DAILY Supplement 07/05/24
ursodiol 300 mg capsule 300 mg PO TID Gastrointestinal Issue 07/05/24
pantoprazole 40 mg tablet,delayed release 40 mg PO BID Gastrointestinal Issue 07/07/24
sodium bicarbonate 650 mg tablet 650 mg PO DAILY Kidney Disease #30 tabs 07/09/24
Review of Systems
-
History Source: Patient
A 12 point ROS was completed and negative except as noted: Yes
Physical Exam
Vital Signs
Vital Signs
Temp Pulse Resp BP Pulse Ox
97.7 F 73 15 106/48 75
10/01/24 08:18 10/01/24 12:00 10/01/24 12:00 10/01/24 12:00 10/01/24 08:27
Physical Exam
General: Other (.)
Laboratory Results
-
10/01/24 08:54
Laboratory Results
PT 13.3 Sec (11.4-14.6) 10/01/24 08:54
INR 0.98 10/01/24 08:54
APTT 25.6 Sec (23.4-35.0) 10/01/24 08:54
Total Bilirubin 0.7 mg/dl (0.2-1.3) 10/01/24 08:54
AST 44 U/L (14-36) H 10/01/24 08:54
ALT 24 U/L (0-35) 10/01/24 08:54
Alkaline Phosphatase 311 U/L (38-126) H 10/01/24 08:54
Impression/Plan
-
Gen: NAD, AAOx3, appears chronically ill malnourished.
Eyes: EOMI, PERRLA, no scleral icterus.
Neck: supple.
CV: RRR, +S1/S2, no m/r/g.
Resp: CTAB, no rales, wheezes, or rhonchi.
Abd: +BS, soft, diffuse tenderness to palpation,, ND
Skin: No rashes.
Neuro: CN 2-12 intact, non-focal.
Psych: Normal mood and affect.
CXR: Right basilar opacification compatible with at least small right pleural effusion.
Abd U/S: The liver is small consistent with history of cirrhosis. There is a right-sided pleural effusion. The spleen is enlarged. There are right renal calculi but no evidence of obstruction.
Acute upper GI bleed:
-Presents with hematemesis and melena
-GI following
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
-follows with Jono Quiroz, felt to be a poor TIPS candidate
-cont IV PPI, octreotide
-cont Rocephin
-cont ursodiol
Hypothyroidism:
-Continue Levoxyl
FULL/SCDs
[2024-10-01 14:29] LABS: Hematocrit 22.7 % (37.0-47.0); Hemoglobin 7.3 g/dL (12.0-16.0); Mean Corp Hgb Conc. 32.2 g/dL (33.0-37.0); Mean Corpuscular Hgb 28.9 pg (27.0-31.0); Mean Corpuscular Volume 89.7 fL (81.0-99.0); Mean Platelet Volume 12.2 fL (7.4-10.4); Platelet Count 101 10^3/uL (130-400); Red Blood Cell Count 2.53 10^6/uL (4.20-5.40); Red Cell Dist. Width 15.3 % (11.5-14.5); White Blood Cell Count 4.2 10^3/uL (4.8-10.8)
--- NOTE | 2024-10-01 14:29 | EDRN ---
Patient taken to room 3341 on monitor on stretcher with Sandostatin infusing by ED RN.
[2024-10-01] MEDS: D5/0.45%NACL 1000 IV (14:55)
[2024-10-01] MEDS: PROTONIX 100 IV (14:56)
--- NOTE | 2024-10-01 16:53 | PTCARENOTE ---
Admitted to 3341- IMU monitors placed. Orthostatic vs as documented. VAT notified of need for third line- poor access and RAC infiltrated -IVF and IV Sandostatin infusing-d/o providers and Protonix gtt changed to pushes BID d/t poor iv access.
Attempted bsc to void- unable PCT Miguel bladder scanned for 170ml. Clear liquid tray ordered- Feels slightly nauses after broth- will take in water and juice for sparingly.REfusing SCDs (she has Restless leg syndrome) she is willing to try foot
pumps. She watched DVT video. Call tucker in reach..
[2024-10-01] MEDS: ACTIGALL 300 MG PO ×2 (18:07→21:23)
[2024-10-01] MEDS: NSS (PRESERVATIVE FREE) 10 ML IV (20:08)
[2024-10-01] MEDS: PROTONIX IV 40 MG IV (20:09)
[2024-10-01 20:41] LABS: Mean Corp Hgb Conc. 31.8 g/dL (33.0-37.0); Mean Corpuscular Hgb 28.6 pg (27.0-31.0); Mean Corpuscular Volume 89.8 fL (81.0-99.0); Mean Platelet Volume 11.7 fL (7.4-10.4); Platelet Count 97 10^3/uL (130-400); Red Blood Cell Count 2.45 10^6/uL (4.20-5.40); Red Cell Dist. Width 15.5 % (11.5-14.5); White Blood Cell Count 4.2 10^3/uL (4.8-10.8)
[2024-10-01] MEDS: REQUIP 1 MG PO (21:23)
[2024-10-01] MEDS: ZYRTEC PO (21:23)
--- NOTE | 2024-10-01 23:26 | PTCARENOTE ---
assumed care of patient. pt is AAOx3, able to make needs known. VSS. 95% RA. CBC done per order, hgb came back 7.0. notified covering [employer]- one unit of blood ordered, currently infusing. x1 assist to BSC. no c/o dizziness or pain. orthostatic vitals
done, no tilt. pt aware she is NPO at midnight. care ongoing.
[2024-10-02] VITALS (36 sets, daily range): BP systolic 87–151; BP diastolic 39–100; PULSE 73–81; BMI 16.8
[2024-10-02] MEDS: SYNTHROID 75 MCG PO (05:14)
[2024-10-02 05:45] LABS: INR 1.02; PT 13.8 Sec (11.4-14.6)
[2024-10-02 05:59] LABS: Hematocrit 25.9 % (37.0-47.0); Hemoglobin 8.5 g/dL (12.0-16.0); Mean Corp Hgb Conc. 32.8 g/dL (33.0-37.0); Mean Corpuscular Hgb 28.8 pg (27.0-31.0); Mean Corpuscular Volume 87.8 fL (81.0-99.0); Mean Platelet Volume 11.6 fL (7.4-10.4); Platelet Count 88 10^3/uL (130-400); Red Blood Cell Count 2.95 10^6/uL (4.20-5.40); Red Cell Dist. Width 14.7 % (11.5-14.5); White Blood Cell Count 3.2 10^3/uL (4.8-10.8)
[2024-10-02 06:06] LABS: ALT (SGPT) 23 U/L (0-35); AST (SGOT) 39 U/L (14-36); Albumin 2.6 g/dl (3.5-5.0); Alkaline Phosphatase 286 U/L (38-126); Blood Urea Nitrogen 32 mg/dl (7-17); Calcium 8.3 mg/dl (8.4-10.2); Carbon Dioxide 19 mmol/L (22-30); Chloride 116 mmol/L (98-107); Direct Bilirubin 0.3 mg/dl (0.0-0.4); Estimated Creatinine Clearance 27 ml/min; Glucose 113 mg/dl (70-99); Potassium 4.2 mmol/L (3.5-5.1); Sodium 143 mmol/L (135-145); Total Bilirubin 0.9 mg/dl (0.2-1.3); Total Protein 5.8 g/dl (6.3-8.2); eGFR 45.76
[2024-10-02] MEDS: ACTIGALL PO (08:00)
[2024-10-02] MEDS: PROTONIX IV 40 MG IV ×2 (08:10→19:54)
[2024-10-02] MEDS: NSS (PRESERVATIVE FREE) 10 ML IV ×2 (08:13→19:54)
--- NOTE | 2024-10-02 08:33 | PTCARENOTE ---
NPO since MN, sent to GI lab via monitored stretcher.
--- NOTE | 2024-10-02 09:49 | W.PN.HOSP.TC ---
Today's Communication/Plan
-
See plan
Assessment / Plan
Assessment / Plan
Gen: NAD, AAOx3, appears chronically ill malnourished.
Eyes: EOMI, PERRLA, no scleral icterus.
Neck: supple.
CV: remains RRR, +S1/S2, no m/r/g.
Resp: remains CTAB, no rales, wheezes, or rhonchi.
Abd: +BS, soft, NT, ND
Skin: No rashes.
Neuro: CN 2-12 intact, non-focal.
Psych: Normal mood and affect.
CXR: Right basilar opacification compatible with at least small right pleural effusion.
Abd U/S: The liver is small consistent with history of cirrhosis. There is a right-sided pleural effusion. The spleen is enlarged. There are right renal calculi but no evidence of obstruction.
EGD 10/02/24: Grade I esophageal varices. Granular, nodular mucosa in the esophagus. Biopsied. 1 band placed around bleeding site with adequate hemostasis. Mucosal nodule found in the esophagus. Portal hypertensive gastropathy. A few non-bleeding
angioectasias in the stomach. Normal duodenal bulb and second portion of the duodenum.
Acute upper GI bleed:
-Presents with hematemesis and melena
-GI following
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
-follows with Jono Quiroz, felt to be a poor TIPS candidate
-cont IV PPI, octreotide
-cont Rocephin
-cont ursodiol
-s/p 1U pRBCs for ABLA
-EGD today above, transfuse another 1U pRBCs
-NPO for today as per discussion with GI
Hypothyroidism:
-Continue Levoxyl
Discussed with GI. Patient's updated at bedside.
FULL/SCDs
Total time spent on today's encounter was 50 minutes which included time spent in counseling the patient/family regarding diagnosis and treatment plan as listed above, goals of care, and symptom management. Case was discussed with nursing staff,
specialists, and care coordinators/case management. All labs and imaging personally reviewed by me. Remainder the time spent in detailed review of previous records, lab data, imaging, and other medical provider documentation.
Anticipated Discharge: 24 - 48 hours
Subjective/Interval History
-
Date of Service: October 02, 2024
No new complaints. Denies chest pain or shortness of breath.
Objective Data
-
Labs:
Laboratory Results
10/02/24 10/02/24 10/02/24
01:53 05:11 07:53
WBC 3.2 L
Hgb Cancelled 8.5 L D Cancelled
Hct Cancelled 25.9 L Cancelled
Plt Count 88 L
PT 13.8
INR 1.02
Sodium 143
Potassium 4.2
Chloride 116 H
Carbon Dioxide 19 L
BUN 32 H
Creatinine 1.2 H
Glucose 113 H
Calcium 8.3 L
Total Bilirubin 0.9
AST 39 H
ALT 23
Alkaline Phosphatase 286 H
Vital Signs:
Vital Signs
Temp Pulse Resp BP Pulse Ox
97.9 F 81 26 126/61 96
10/02/24 04:46 10/02/24 08:17 10/02/24 08:17 10/02/24 08:17 10/01/24 22:43
I&O
10/01/24 10/02/24 10/03/24
06:59 06:59 06:59
Intake Total 500 / 500
Balance 500 / 500
[2024-10-02] MEDS: ZOFRAN 4 MG IV (10:06)
[2024-10-02] MEDS: FEOSOL 325 MG PO (12:43)
[2024-10-02] MEDS: SODIUM BICARBONATE 650 MG PO (12:44)
[2024-10-02] MEDS: MAGNESIUM OXIDE 250 MG PO (12:44)
[2024-10-02] MEDS: VITAMIN D3 (cholecalciferol) 25 MCG PO (12:44)
[2024-10-02] MEDS: OSCAL CAL 500 500 MG PO (12:44)
[2024-10-02] MEDS: THERAGRAN 1 TABLET PO (12:44)
[2024-10-02] MEDS: ROCEPHIN 1000 MG IV (13:00)
[2024-10-02] MEDS: STERILE WATER FOR INJECTION 10 ML IV (13:00)
[2024-10-02] MEDS: SANDOSTATIN 500.6 MCG IV (13:00)
[2024-10-02] MEDS: ACTIGALL 300 MG PO ×2 (16:30→21:36)
[2024-10-02] MEDS: CARAFATE SUSPENSION 1 GM PO ×2 (16:30→21:36)
--- NOTE | 2024-10-02 17:35 | CM ---
Patient with Dx UGIB s/p transfusion. Room air. EGD today. NPO/IVF. Receiving IV Abx, IV Octreotide, IV Protonix.
Met with patient who resides with her in a 1 story house with 1 TABITHA.
The patient was independent in ADLs and ambulation.
DME - RW, SPC
VN - Prior [facility]
SNF - none
PCP - Nelson Narayan
Pharmacy - [facility]
Offered VN and patient declined.
No CM d/c needs identified.
Plan home.
--- NOTE | 2024-10-02 19:20 | PTCARENOTE ---
Returned from dental laboratory supervisor, VSS. Denies nausea, pain. 1 unit PRBC ordered and transfused without difficulty. IV Sandostatin as ordered and IVF held during transfusion. Ortho VS negative. She is hungry- took pills with sips of water but will remain
npo overnight per provider. Spouse updated by Dr. St this afternoon.
[2024-10-02] MEDS: D5/0.45%NACL 1000 IV (19:54)
[2024-10-02] MEDS: ZYRTEC PO (21:14)
[2024-10-02] MEDS: REQUIP 1 MG PO (21:36)
--- NOTE | 2024-10-02 23:44 | PTCARENOTE ---
assumed care of patient. pt is AAOx3, able to make needs known. VSS. 94% RA. no complaints of pain. IV fluids and IV octreotide infusing without issues. pt able to walk into bathroom x1 assist just to help with poles and wires. care ongoing.
[2024-10-03] VITALS (11 sets, daily range): BP systolic 106–150; BP diastolic 48–126; BMI 17.4
[2024-10-03] MEDS: D5/0.45%NACL IV (00:37)
[2024-10-03] MEDS: SANDOSTATIN 500.6 MCG IV ×3 (01:14→23:49)
[2024-10-03] MEDS: SYNTHROID 75 MCG PO (06:00)
[2024-10-03 06:42] LABS: Blood Urea Nitrogen 21 mg/dl (7-17); Calcium 8.1 mg/dl (8.4-10.2); Carbon Dioxide 18 mmol/L (22-30); Chloride 120 mmol/L (98-107); Estimated Creatinine Clearance 28 ml/min; Glucose 109 mg/dl (70-99); Sodium 144 mmol/L (135-145); eGFR 45.76
[2024-10-03 07:17] LABS: Hematocrit 31.6 % (37.0-47.0); Hemoglobin 10.4 g/dL (12.0-16.0); Mean Corp Hgb Conc. 32.9 g/dL (33.0-37.0); Mean Corpuscular Hgb 28.8 pg (27.0-31.0); Mean Corpuscular Volume 87.5 fL (81.0-99.0); Mean Platelet Volume 11.3 fL (7.4-10.4); Platelet Count 100 10^3/uL (130-400); Red Blood Cell Count 3.61 10^6/uL (4.20-5.40); Red Cell Dist. Width 15.7 % (11.5-14.5); White Blood Cell Count 4.4 10^3/uL (4.8-10.8)
[2024-10-03] MEDS: CARAFATE SUSPENSION 1 GM PO (07:46)
[2024-10-03] MEDS: NSS (PRESERVATIVE FREE) 10 ML IV ×2 (07:46→19:28)
[2024-10-03] MEDS: PROTONIX IV 40 MG IV ×2 (07:46→19:28)
[2024-10-03] MEDS: THERAGRAN 1 TABLET PO (07:47)
[2024-10-03] MEDS: MAGNESIUM OXIDE 250 MG PO (07:47)
[2024-10-03] MEDS: ACTIGALL 300 MG PO ×3 (07:47→19:28)
[2024-10-03] MEDS: VITAMIN D3 (cholecalciferol) 25 MCG PO (07:47)
[2024-10-03] MEDS: OSCAL CAL 500 500 MG PO (07:48)
[2024-10-03] MEDS: FEOSOL 325 MG PO (07:48)
[2024-10-03] MEDS: SODIUM BICARBONATE 650 MG PO (07:48)
--- NOTE | 2024-10-03 08:14 | W.PN.HOSP.TC ---
Addendum entered and electronically signed by Chaim Mccarthy MD 10/03/24 16:54:
Pancytopenia
Original Note:
Today's Communication/Plan
-
see plan
Assessment / Plan
Assessment / Plan
Gen: Remains NAD, AAOx3, appears chronically ill malnourished.
Eyes: EOMI, PERRLA, no scleral icterus.
Neck: supple.
CV: Continues to remain RRR, +S1/S2, no m/r/g.
Resp: Continues to remain CTAB, no rales, wheezes, or rhonchi.
Abd: +BS, soft, NT, ND
Skin: No rashes.
Neuro: CN 2-12 intact, non-focal.
Psych: Normal mood and affect.
CXR: Right basilar opacification compatible with at least small right pleural effusion.
Abd U/S: The liver is small consistent with history of cirrhosis. There is a right-sided pleural effusion. The spleen is enlarged. There are right renal calculi but no evidence of obstruction.
EGD 10/02/24: Grade I esophageal varices. Granular, nodular mucosa in the esophagus. Biopsied. 1 band placed around bleeding site with adequate hemostasis. Mucosal nodule found in the esophagus. Portal hypertensive gastropathy. A few non-bleeding
angioectasias in the stomach. Normal duodenal bulb and second portion of the duodenum.
Acute upper GI bleed:
-Presents with hematemesis and melena
-GI following
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
-follows with Jono Quiroz, felt to be a poor TIPS candidate
-cont IV PPI, octreotide
-cont Rocephin
-cont ursodiol
-s/p 2U pRBCs for ABLA
-EGD 10/02/24 above
-Diet advanced to full liquids
Non-AG met acidosis:
-change IVFs to D5W with 75meq NaHCO3
Other problems:
Hypothyroidism: Continue Levoxyl
CKD3a
Patient's updated at bedside.
FULL/SCDs
Anticipated Discharge: 24 - 48 hours
Subjective/Interval History
-
Date of Service: October 03, 2024
Denies melena or hematochezia. Denies abdominal pain.
Objective Data
-
Labs:
Laboratory Results
10/03/24
06:09
WBC 4.4 L
Hgb 10.4 L D
Hct 31.6 L
Plt Count 100 L
Sodium 144
Potassium 4.0
Chloride 120 H
Carbon Dioxide 18 L
BUN 21 H
Creatinine 1.2 H
Glucose 109 H
Calcium 8.1 L
Vital Signs:
Vital Signs
Temp Pulse Resp BP Pulse Ox
98.5 F 96 23 150/126 94
10/03/24 03:47 10/03/24 06:02 10/03/24 06:02 10/03/24 06:02 10/02/24 20:25
I&O
10/02/24 10/03/24 10/04/24
06:59 06:59 06:59
Intake Total 500 / 500 1270 / 1270
Output Total 150 / 150
Balance 500 / 500 1120 / 1120
[2024-10-03] MEDS: SODIUM BICARBONATE 1075 MEQ IV (08:57)
--- NOTE | 2024-10-03 10:34 | CM ---
Reviewed the chart notes. Patient's diet advanced to full liquid. CM continues to be available to patient/family and is monitoring medical plan for needs at discharge.
Plan: Discharge to home when medically stable. No additional needs identified at this time.
[2024-10-03] MEDS: CARAFATE SUSPENSION PO ×3 (11:21→19:10)
[2024-10-03] MEDS: ROCEPHIN 1000 MG IV (11:23)
[2024-10-03] MEDS: STERILE WATER FOR INJECTION 10 ML IV (11:23)
--- NOTE | 2024-10-03 12:37 | W.PN.GI.CBS2 ---
Today's Communication / Plan
-
Continue full liquids, plan to advance to mechanical soft for dinner. Possible d/c tomorrow pending clinical course. f/u esophageal bx
Assessment / Plan
-
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
hepatic hydrothorax), Chronic hypotension on midodrine seen by Dr. Trae Quiroz at [facility] last visit 09/27/24, previously seen by Dr. Walls at [facility] in the past, yet to see Dr. Tatum in the office (appt 11/01/24) who was
hospitalized in [place] for acute UGI bleed x 2 and had EGD x 2 without varices, transfused both times 1 unit PRBC 10 days apart with last hospitalization 2 weeks ago. Prior to that was last seen at for UGIB and had EGD on 07/06/24 endoscopy done
which showed grade 2 esophageal varices, completely eradicated and banded x 3, portal hypertensive gastropathy, multiple bleeding and dysplastic lesions in the stomach treated with APC, during that hospitalization she was given 2 units of PRBC,
treated with Octreotide gtt x 72 hr, Pantoprazole BID and Ceftriaxone for 5 days. EGD on 06/18/24 showed no significant old or fresh blood throughout the entire upper GI tract. Very small esophageal varices which completely flattened with
insufflation and not source of patient's previous presentation.
In summary, patient has had multiple admissions at and in [facility] for self-limiting large-volume hematemasis without really unremarkable findings on endoscopic evaluation. She was noted to have esophageal varices requiring banding in July,
however, no high risk stigmata identified, so possibly the source but also possible alternative bleeding source. Possible dieualfoy? Unclear why she had such significant bleeding following biopsy of abnormal esophageal mucosa, however, bleeding was
not characteristic of a variceal bleed nor did it appear she had significant varices on a very thorough endoscopic evaluation by myself and Dr. Zamorano.
Impression:
Upper GI bleed, hematemesis and melena
->Unclear etiology of bleed leading to her admission however significant periprocedural bleeding following esophageal biopsy, path pending. Hemostasis achieved with band ligation.
Small AVMs in the stomach noted, unable to be treated with APC, doubt this was the cause of such significant hematemesis she continues to have.
-currently on fulls, plan to advance to mechanical soft diet for dinner
-hemoglobin stable
-continue PPI, carafate
-c/w SBP ppx with ceftriaxone
-monitor H&H, active T&C
Subjective
Subjective
Date of Service: October 03, 2024
Dottie seen in follow-up. S/p EGD yesterday-- significant bleeding following esophageal biopsy of abnormal mucosa seen at the GE junction. There was no active bleeding seen on intubation, does have small AVMs in the stomach that did not end up being
treated with APC due to significant bleeding following biopsy. Adequate hemostatsis achieved with band ligation-- the type of bleeding as well as endoscopic appearance was NOT consistent with a varix. Unclear etiology of bleeding following biopsies.
No episodes of bleeding overnight. Due to significant periprocedural bleeding, she was transfused with 1 unit of PRBC when she returned to her room, Hgb 10.4 from 8.5 yesterday; BUN improving.
Objective
Data Reviewed
Laboratory Data:
Laboratory Results
10/03/24 06:09
10/03/24 06:09
Laboratory Results
PT 13.8 Sec (11.4-14.6) 10/02/24 05:11
INR 1.02 10/02/24 05:11
APTT 25.6 Sec (23.4-35.0) 10/01/24 08:54
Total Bilirubin 0.9 mg/dl (0.2-1.3) 10/02/24 05:11
AST 39 U/L (14-36) H 10/02/24 05:11
ALT 23 U/L (0-35) 10/02/24 05:11
Alkaline Phosphatase 286 U/L (38-126) H 10/02/24 05:11
Vital Signs and I&O:
Vital Signs
Temp Pulse Resp BP Pulse Ox
97.9 F 75 19 136/62 95
10/03/24 11:33 10/03/24 12:26 10/03/24 12:26 10/03/24 12:26 10/03/24 12:00
I&O
10/02/24 10/03/24 10/04/24
06:59 06:59 06:59
Intake Total 500 / 500 1270 / 1270 480 / 480
Output Total 150 / 150
Balance 500 / 500 1120 / 1120 480 / 480
Physical Exam
Physical Exam
GEN: No acute distress
HEENT: anicteric, extraocular movements intact, clear oropharynx without exudates
GI: soft, non-distended, not tender to palpation, normal active bowel sounds, no hepatosplenomegaly
EXT: warm, well perfused, trace edema bilaterally
NEURO: AAOx3, non-focal
--- NOTE | 2024-10-03 13:50 | PN.CDI ---
CDI
- -
CDI:
Physician Documentation Request
Admit Date: 10/01/24 13:47
Dear Doctor Fabio,
Clinical Indicators:
Patient admitted with acute upper GI bleed.
PMH includes Cirrhosis due to PBC.
WBC, RBC, Plt trend:
10/01/24 10/02/24 10/03/24
14:16 05:11 06:09
WBC 4.2 L 3.2 L 4.4 L
RBC 2.53 L 2.95 L 3.61 L
Plt Count 101 L D 88 L 100 L
Based on the above, could you clarify in the progress notes, the appropriate diagnosis, if significant, that supports the above abnormalities and additional evaluation, monitoring and/or treatment rendered:
Pancytopenia
Abnormal lab values, clinically insignificant
Other, please specify
Use of terms such as suspected, likely, concern for, or probable (associated with a specific diagnosis that is being evaluated, monitored, or treated as if it exists) are acceptable and can be coded in the inpatient setting, when documented at the
time of discharge.
Thank you,
Esme Fox RN BSN
CDI Specialist
available via tiger text
Please use your independent medical judgment in providing your response.
--- NOTE | 2024-10-03 14:04 | PTCARENOTE ---
Patient AOx3. Patient on RA. NSR on monitor. VSS. Dry occasional cough. Frequent soft brown BM's. Assist x1 when OOB. IVF running per order. Patient tolerating full liquid diet. Call tucker within reach, and bed in lowest position.
[2024-10-03] MEDS: ZYRTEC 5 MG PO (19:27)
[2024-10-03] MEDS: REQUIP 1 MG PO (19:27)
--- NOTE | 2024-10-03 21:10 | PTCARENOTE ---
Addendum entered by Domi Blackburn RN 10/04/24 06:30:
Covid, flu swabbed and negative. Patient brought to stat ct chest ordered by physical science professor PL[employer]W OPERATOR. IVF placed on hold. Plan for consult to [facility] today for possible thoracentesis.
Addendum entered by Domi Blackburn RN 10/04/24 04:33:
Patient complaining of SOB- nasal cannula increased to 4 liters. Satting 93 percent. Lung sounds diminished. physical science professor provider made aware.
Addendum entered by Domi Blackburn RN 10/03/24 22:58:
Nasal cannula weaned to 2 liters.
Original Note:
Patient pulsox in the 70s when pulsox replaced- 5 liters 02 placed on patient. No SOB noted. Patient stated that she has raynauds and its hard to get a good pulsox but pleth on monitor was perfect.
[2024-10-04] VITALS (15 sets, daily range): BP systolic 64–153; BP diastolic 50–90; BMI 17.8
[2024-10-04] MEDS: SODIUM BICARBONATE 1075 MEQ IV (02:33)
--- NOTE | 2024-10-04 04:35 | PTCARENOTE ---
No bloody bowel movements overnight.
[2024-10-04] MEDS: SYNTHROID 75 MCG PO (04:43)
[2024-10-04] MEDS: ProAIR HFA INHALER 2 PUFF INH (05:08)
[2024-10-04 05:22] LABS: Blood Urea Nitrogen 15 mg/dl (7-17); Carbon Dioxide 23 mmol/L (22-30); Chloride 117 mmol/L (98-107); Estimated Creatinine Clearance 31 ml/min; Glucose 114 mg/dl (70-99); Potassium 4.1 mmol/L (3.5-5.1); Sodium 144 mmol/L (135-145)
[2024-10-04 05:24] LABS: COVID-19 Antigen Negative (Negative)
--- NOTE | 2024-10-04 05:29 | W.PN.UPDATE ---
Update Note
Progress Note Update
RN reported Oxygen sat 77% RA, Placed on oxygen 2l 95%.
RN reported increase in work of breathing in AM, had to increase Oxygen from 2l to 4L 92-94%. Patient seen and evaluated. AAO, reports shortness of breath started overnight, denies chest pain, denies fever chills, stomach upset or any active bleed.
Lungs right rales/crackles right side, left side diminished. HR RRR, + BS 4 quad, no edema. Labs, Influenza, Covid, chest Xray ordered. Chest Xray image read by Hospitalist, report pending. Will order lasix 40mg IVx1, CT chest without contrast
CT chest image noted by Hospitalist, Will consult IR for possible Thoracentesis. IR notified via TT.
IV Fluid on hold at present.
RN reported patient feeling little better after Lasix, Bp 150/71,28 74 93% 4L
[2024-10-04 05:32] LABS: Hematocrit 33.4 % (37.0-47.0); Hemoglobin 10.7 g/dL (12.0-16.0); Mean Corpuscular Hgb 28.6 pg (27.0-31.0); Mean Corpuscular Volume 89.3 fL (81.0-99.0); Mean Platelet Volume 11.9 fL (7.4-10.4); Platelet Count 82 10^3/uL (130-400); Red Blood Cell Count 3.74 10^6/uL (4.20-5.40); Red Cell Dist. Width 15.8 % (11.5-14.5); White Blood Cell Count 4.4 10^3/uL (4.8-10.8)
[2024-10-04] MEDS: ProAmatine 5 MG PO (06:16)
[2024-10-04] MEDS: LASIX 40 MG IV (06:16)
--- NOTE | 2024-10-04 07:52 | W.PN.HOSP.TC ---
Today's Communication/Plan
-
see plan
Assessment / Plan
Assessment / Plan
Gen: continues to remain NAD, AAOx3, appears chronically ill malnourished.
Eyes: EOMI, PERRLA, no scleral icterus.
Neck: supple.
CV: RRR, +S1/S2, no m/r/g.
Resp: dec BS R hemithorax.
Abd: +BS, soft, NT, ND
Skin: No rashes.
Neuro: CN 2-12 intact, non-focal.
Psych: Normal mood and affect.
CXR: Right basilar opacification compatible with at least small right pleural effusion.
Abd U/S: The liver is small consistent with history of cirrhosis. There is a right-sided pleural effusion. The spleen is enlarged. There are right renal calculi but no evidence of obstruction.
EGD 10/02/24: Grade I esophageal varices. Granular, nodular mucosa in the esophagus. Biopsied. 1 band placed around bleeding site with adequate hemostasis. Mucosal nodule found in the esophagus. Portal hypertensive gastropathy. A few non-bleeding
angioectasias in the stomach. Normal duodenal bulb and second portion of the duodenum.
CT chest 10/04/24:
1. LARGE RIGHT PLEURAL EFFUSION.
2. Severe atelectasis and airspace consolidation in the right lower, middle, and upper lobes with only mild aeration remaining in the right lung.
3. Small left pleural effusion.
4. Mild interstitial and alveolar cardiogenic pulmonary edema in the left lung.
5. Mild centrilobular emphysema.
6. MODERATE HEPATIC CIRRHOSIS.
7. Small volume of ascites.
8. Small hiatal hernia.
Acute upper GI bleed:
-Presents with hematemesis and melena
-GI following
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
-follows with Jono Quiroz, felt to be a poor TIPS candidate
-cont IV PPI, octreotide
-cont Rocephin
-cont ursodiol
-s/p 2U pRBCs for ABLA
-EGD 10/02/24 above
-Diet advanced to full liquids
Large R pleural effusion:
-acute hypoxemic respiratory insufficiency due to large R pleural effusion
-was given IV Lasix 10/04/24AM
-currently 92% on 4L NC O2
-c/s IR for thoracentesis
-no fluid studies ordered when IR c/s placed, will add LDH/prot/cytology/cell ct/Cx/pH
Non-AG met acidosis:
-was on IVFs to D5W with 75meq NaHCO3 which were stopped due to large R pleural effusion
-resolved
Other problems:
Hypotension: Continue midodrine PRN
Hypothyroidism: Continue Levoxyl
CKD3a
Patient's updated at bedside.
FULL/SCDs
Anticipated Discharge: > 48 hours
Subjective/Interval History
-
Date of Service: October 04, 2024
Objective Data
-
Labs:
Laboratory Results
10/04/24
04:51
WBC 4.4 L
Hgb 10.7 L
Hct 33.4 L
Plt Count 82 L
Sodium 144
Potassium 4.1
Chloride 117 H
Carbon Dioxide 23
BUN 15
Creatinine 1.1 H
Glucose 114 H
Calcium 8.0 L
Vital Signs:
Vital Signs
Temp Pulse Resp BP Pulse Ox
98.1 F 74 30 98/84 93
10/04/24 07:25 10/04/24 06:00 10/04/24 06:00 10/04/24 06:00 10/04/24 06:00
I&O
10/03/24 10/04/24 10/05/24
06:59 06:59 06:59
Intake Total 1270 / 1270 1680 / 1680
Output Total 150 / 150
Balance 1120 / 1120 1680 / 1680
[2024-10-04] MEDS: FEOSOL 325 MG PO (08:51)
[2024-10-04] MEDS: MAGNESIUM OXIDE 250 MG PO (08:51)
[2024-10-04] MEDS: CARAFATE SUSPENSION PO ×5 (08:51→20:08)
[2024-10-04] MEDS: ACTIGALL 300 MG PO ×3 (08:51→19:41)
[2024-10-04] MEDS: NSS (PRESERVATIVE FREE) 10 ML IV (08:52)
[2024-10-04] MEDS: OSCAL CAL 500 500 MG PO (08:53)
[2024-10-04] MEDS: THERAGRAN 1 TABLET PO (08:54)
[2024-10-04] MEDS: PROTONIX IV 40 MG IV (08:54)
[2024-10-04] MEDS: VITAMIN D3 (cholecalciferol) 25 MCG PO (08:54)
[2024-10-04] MEDS: SODIUM BICARBONATE 650 MG PO (08:54)
[2024-10-04 10:53] LABS: LDH 195 U/L (120-246); Total Protein 5.8 g/dl (6.3-8.2)
[2024-10-04] MEDS: ROCEPHIN 1000 MG IV (11:59)
[2024-10-04] MEDS: SANDOSTATIN 500.6 MCG IV (12:00)
[2024-10-04] MEDS: STERILE WATER FOR INJECTION 10 ML IV (12:04)
--- NOTE | 2024-10-04 13:07 | W.PN.GI.CBS2 ---
Today's Communication / Plan
-
Hemoglobin stable. Hypoxic 2/2 large pleural effusion, plan for IR thoracentesis today
Assessment / Plan
-
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
hepatic hydrothorax), Chronic hypotension on midodrine seen by Dr. Trae Quiroz at [facility] [place] [facility] last visit 09/27/24, previously seen by Dr. Walls at [facility] in the past, yet to see Dr. Tatum in the office (appt 11/01/24) who was
hospitalized in [place] for acute UGI bleed x 2 and had EGD x 2 without varices, transfused both times 1 unit PRBC 10 days apart with last hospitalization 2 weeks ago. Prior to that was last seen at for UGIB and had EGD on 07/06/24 endoscopy done
which showed grade 2 esophageal varices, completely eradicated and banded x 3, portal hypertensive gastropathy, multiple bleeding and dysplastic lesions in the stomach treated with APC, during that hospitalization she was given 2 units of PRBC,
treated with Octreotide gtt x 72 hr, Pantoprazole BID and Ceftriaxone for 5 days. EGD on 06/18/24 showed no significant old or fresh blood throughout the entire upper GI tract. Very small esophageal varices which completely flattened with
insufflation and not source of patient's previous presentation.
In summary, patient has had multiple admissions at and in [place] for self-limiting large-volume hematemesis without really unremarkable findings on endoscopic evaluation. She was noted to have esophageal varices requiring banding in July,
however, no high risk stigmata identified, so possibly the source but also possible alternative bleeding source. Possible dieualfoy? Unclear why she had such significant bleeding following biopsy of abnormal esophageal mucosa, however, bleeding was
not characteristic of a variceal bleed nor did it appear she had significant varices on a very thorough endoscopic evaluation by myself and Dr. Zamorano. No evidence of ongoing active bleeding since her EGD.
Overnight, patient became hypoxic requiring supplemental O2, CXR showed large right pleural effusion. She was given 40mg IV lasix, plan for IR thoracentesis today.
Impression:
Upper GI bleed, hematemesis and melena in setting of PBC cirrhosis
->Unclear etiology of bleed leading to her admission however significant periprocedural bleeding following esophageal biopsy, path pending. Hemostasis achieved with band ligation.
Small AVMs in the stomach noted, unable to be treated with APC, doubt this was the cause of such significant hematemesis she continues to have.
-on regular diet
-hemoglobin stable
-okay to transition to PO PPI
-c/w SBP ppx with ceftriaxone--d/c on PO abx for up to 7 days total treatment
-completed 72 hours of octreotide, okay to d/c
-monitor H&H, active T&C
-biopsies from abnormal mucosa at the GE junction returned with acute and chronic inflammation, no evidence if metaplasia or dysplasia, discussed with both patient and
Hypoxic respiratory failure 2/2 large R. pleural effusion
-s/p 40mg IV lasix
-fluids d/c'ed
-plan for IR thoracentesis today, appropriate fluid studies ordered
Okay to d/c from a GI perspective once respiratory status is improved
Subjective
Subjective
Date of Service: October 04, 2024
Overnight, patient became hypoxic to 77% on RA with increased work of breathing, requiring supplemental O2. CXR showed large right pleural effusion, treated with 40mg IV lasix with some improvement. Plan for thoracentesis today. Hemoglobin stable,
no bleeding overnight. She is eager for discharge once her respiratory status improves.
Objective
Data Reviewed
Laboratory Data:
Laboratory Results
10/04/24 04:51
10/04/24 04:51
Laboratory Results
PT 13.8 Sec (11.4-14.6) 10/02/24 05:11
INR 1.02 10/02/24 05:11
APTT 25.6 Sec (23.4-35.0) 10/01/24 08:54
Magnesium 2.0 mg/dl (1.6-2.3) 10/04/24 04:51
Total Bilirubin 0.9 mg/dl (0.2-1.3) 10/02/24 05:11
AST 39 U/L (14-36) H 10/02/24 05:11
ALT 23 U/L (0-35) 10/02/24 05:11
Alkaline Phosphatase 286 U/L (38-126) H 10/02/24 05:11
Vital Signs and I&O:
Vital Signs
Temp Pulse Resp BP Pulse Ox
98.2 F 63 22 132/66 94
10/04/24 11:09 10/04/24 12:00 10/04/24 12:00 10/04/24 12:00 10/04/24 10:36
I&O
10/03/24 10/04/24 10/05/24
06:59 06:59 06:59
Intake Total 1270 / 1270 1680 / 1680
Output Total 150 / 150
Balance 1120 / 1120 1680 / 1680
Physical Exam
Physical Exam
GEN: No acute distress
HEENT: anicteric, extraocular movements intact, clear oropharynx without exudates
RESP: Decreased bs at bases; on O2 via NC
GI: soft, non-distended, not tender to palpation, normal active bowel sounds, no hepatosplenomegaly
EXT: warm, well perfused, trace edema bilaterally
NEURO: AAOx3, non-focal
[2024-10-04 15:43] LABS: Body Fluid pH 7.47
[2024-10-04 15:48] LABS: Body Fluid Mononuclear 91.6 %; Body Fluid Polymorphonuclear 8.4 %; Body Fluid WBC 405 /CUMM
[2024-10-04 15:56] LABS: Body Fluid Second Tech FB
[2024-10-04 15:58] LABS: Body Fluid LDH < 90 U/L; Body Fluid Protein < 2.0 g/dl
--- NOTE | 2024-10-04 16:32 | PTCARENOTE ---
Returned from [facility], bandaid on right back CDI. RR 16, even non labored, feels much better. Denies pain.
[2024-10-04] MEDS: REQUIP 1 MG PO (19:41)
[2024-10-04] MEDS: ZYRTEC 5 MG PO (19:41)
[2024-10-04] MEDS: PROTONIX 40 MG PO (19:41)
[2024-10-05] VITALS (10 sets, daily range): BP systolic 111–152; BP diastolic 45–105; BMI 17.8
[2024-10-05] MEDS: SYNTHROID 75 MCG PO (04:54)
--- NOTE | 2024-10-05 05:03 | PTCARENOTE ---
No acute events overnight. Remains on 2 liters.
[2024-10-05 07:24] LABS: Glucose - Point of Care 86 mg/dl (70-99)
[2024-10-05] MEDS: CARAFATE SUSPENSION PO ×4 (08:19→21:23)
[2024-10-05] MEDS: ACTIGALL 300 MG PO ×3 (08:20→21:22)
[2024-10-05] MEDS: VITAMIN D3 (cholecalciferol) 25 MCG PO (08:20)
[2024-10-05] MEDS: MAGNESIUM OXIDE 250 MG PO (08:20)
[2024-10-05] MEDS: FEOSOL 325 MG PO (08:20)
[2024-10-05] MEDS: OSCAL CAL 500 500 MG PO (08:20)
[2024-10-05] MEDS: SODIUM BICARBONATE 650 MG PO (08:20)
[2024-10-05] MEDS: THERAGRAN 1 TABLET PO (08:20)
[2024-10-05] MEDS: PROTONIX 40 MG PO ×2 (08:20→21:21)
--- NOTE | 2024-10-05 09:04 | W.PN.HOSP.TC ---
Today's Communication/Plan
-
see plan
Assessment / Plan
Assessment / Plan
Gen: NAD, AAOx3, appears chronically ill malnourished.
Eyes: EOMI, PERRLA, no scleral icterus.
Neck: supple.
CV: RRR, +S1/S2, no m/r/g.
Resp: Rales in the left base, dec BS R base and to a lesser extent the right midlung field.
Abd: +BS, soft, NT, ND
Skin: No rashes.
Neuro: CN 2-12 intact, non-focal.
Psych: Normal mood and affect.
CXR: Right basilar opacification compatible with at least small right pleural effusion.
Abd U/S: The liver is small consistent with history of cirrhosis. There is a right-sided pleural effusion. The spleen is enlarged. There are right renal calculi but no evidence of obstruction.
EGD 10/02/24: Grade I esophageal varices. Granular, nodular mucosa in the esophagus. Biopsied. 1 band placed around bleeding site with adequate hemostasis. Mucosal nodule found in the esophagus. Portal hypertensive gastropathy. A few non-bleeding
angioectasias in the stomach. Normal duodenal bulb and second portion of the duodenum.
CT chest 10/04/24:
1. LARGE RIGHT PLEURAL EFFUSION.
2. Severe atelectasis and airspace consolidation in the right lower, middle, and upper lobes with only mild aeration remaining in the right lung.
3. Small left pleural effusion.
4. Mild interstitial and alveolar cardiogenic pulmonary edema in the left lung.
5. Mild centrilobular emphysema.
6. MODERATE HEPATIC CIRRHOSIS.
7. Small volume of ascites.
8. Small hiatal hernia.
Acute upper GI bleed:
-Presents with hematemesis and melena
-GI following
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
-follows with Jono Quiroz, felt to be a poor TIPS candidate
-was on IV PPI and octreotide. Patient has now completed a course of octreotide. Now on Protonix 40mg PO BID.
-cont Rocephin for 5 days
-cont ursodiol
-s/p 2U pRBCs for ABLA
-EGD 10/02/24 above
-Diet advanced to IDDSI-6
Large R pleural effusion:
-acute hypoxemic respiratory insufficiency due to large R pleural effusion
-was given IV Lasix 10/04/24AM
-s/p R thoracentesis 10/04/24 for 1050cc straw-colored fluid, transudative
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
Non-AG met acidosis:
-was on IVFs to D5W with 75meq NaHCO3 which were stopped due to large R pleural effusion
-resolved
Other problems:
Hypotension: Continue midodrine PRN
Hypothyroidism: Continue Levoxyl
CKD3a
FULL/SCDs
Downgrade to MS
Anticipated Discharge: 24 - 48 hours
Subjective/Interval History
-
Date of Service: October 05, 2024
Patient reports shortness of breath is significantly improved.
Objective Data
-
Vital Signs:
Vital Signs
Temp Pulse Resp BP Pulse Ox
98.2 F 57 22 125/55 93
10/05/24 07:05 10/05/24 08:00 10/05/24 08:00 10/05/24 08:00 10/05/24 08:00
I&O
10/04/24 10/05/24 10/06/24
06:59 06:59 06:59
Intake Total 1680 / 1680 1500 / 1500
Balance 1680 / 1680 1500 / 1500
[2024-10-05] MEDS: STERILE WATER FOR INJECTION 10 ML IV (11:23)
[2024-10-05] MEDS: ROCEPHIN 1000 MG IV (11:23)
--- NOTE | 2024-10-05 12:10 | PTCARENOTE ---
Patient AOx3. Patient on 2L NC. NSR on monitor. VSS. Dry occasional cough. Frequent soft brown BM's. Assist x1 when OOB. Patient tolerating IDDSI 6 diet. Patients at bedside. Call tucker within reach, and bed in lowest position.
--- NOTE | 2024-10-05 13:25 | PTCARENOTE ---
Verbal report given to 4E RN Christina. Patient transferred via stretcher. Patient belongings sent with patient.
--- NOTE | 2024-10-05 15:15 | PN.CDI ---
Addendum entered and electronically signed by Chaim Mccarthy MD 10/06/24 11:12:
Documentation is complete
Original Note:
CDI
- -
CDI:
Physician Documentation Request
Admit Date: 10/01/24 13:47
Dear Doctor Fabio,
Clinical Indicators:
Patient admitted with acute upper GI bleed
10/05 PN, 'acute hypoxemic respiratory insufficiency due to large R pleural effusion-was given IV Lasix 10/04/24AM'
10/[address], 'Mild interstitial and alveolar cardiogenic pulmonary edema in the left lung.'
Based on the above, could you clarify the etiology of the respiratory insufficiency:
Multifactorial, due to right pleural effusion and acute pulmonary edema
Due to right pleural effusion only
Other, please specify
Use of terms such as suspected, likely, concern for, or probable are acceptable for a diagnosis that is being evaluated, monitored or treated as if it exists and can be coded in the inpatient setting, when documented at the time of discharge.
Thank you,
Esme Fox RN BSN
CDI Specialist
available via tiger text
Please use your independent medical judgment in providing your response.
--- NOTE | 2024-10-05 17:45 | CM ---
Addendum entered by France Vital RN 10/05/24 17:50:
Plan watch for any home O2 needs.
Plan home.
Original Note:
Patient with Dx UGIB s/p transfusions, pleural effusion s/p thoracentesis yesterday. O2 2L. Receiving IV Abx. Dysphagia diet. Per nurse; ambulatory in room. Transferred from IMU to today.
No CM d/c needs identified.
Plan home.
[2024-10-05] MEDS: ZYRTEC 5 MG PO (21:21)
[2024-10-05] MEDS: REQUIP 1 MG PO (21:21)
[2024-10-06 03:16] VITALS: BP 111/42
[2024-10-06] MEDS: SYNTHROID 75 MCG PO (05:38)
[2024-10-06 06:00] VITALS: BMI 16.9
[2024-10-06 07:30] VITALS: BP 127/56
[2024-10-06] MEDS: CARAFATE SUSPENSION PO ×3 (08:43→17:20)
[2024-10-06] MEDS: OSCAL CAL 500 500 MG PO (08:52)
[2024-10-06] MEDS: MAGNESIUM OXIDE 250 MG PO (08:52)
[2024-10-06] MEDS: PROTONIX 40 MG PO (08:52)
[2024-10-06] MEDS: THERAGRAN 1 TABLET PO (08:52)
[2024-10-06] MEDS: FEOSOL 325 MG PO (08:52)
[2024-10-06] MEDS: SODIUM BICARBONATE 650 MG PO (08:52)
[2024-10-06] MEDS: FLUSH (NSS) 1 FLUSH IV (08:53)
[2024-10-06] MEDS: ACTIGALL 300 MG PO ×2 (08:53→17:20)
[2024-10-06] MEDS: VITAMIN D3 (cholecalciferol) 25 MCG PO (08:53)
--- NOTE | 2024-10-06 10:47 | W.PN.HOSP.TC ---
Addendum entered and electronically signed by Chaim Mccarthy MD 10/06/24 13:18:
Total time spent on d/c = 38 min. This included today's physical exam, progress note, review of laboratory and diagnostic data, preparation of discharge documents and prescriptions, and discussions about the pt's hospital course and discharge plan
with the patient and other medical staff coordinator involved in the patient's care.
Original Note:
Today's Communication/Plan
-
d/c after PT and Home O2 evals
Assessment / Plan
Assessment / Plan
Gen: remains NAD, AAOx3, appears chronically ill malnourished.
Eyes: EOMI, PERRLA, no scleral icterus.
Neck: supple.
CV: RRR, +S1/S2
Resp: dec BS R base and to a lesser extent the right midlung field.
Abd: +BS, soft, NT, ND
Skin: No rashes.
Neuro: remains CN 2-12 intact, non-focal.
Psych: Normal mood and affect.
CXR: Right basilar opacification compatible with at least small right pleural effusion.
Abd U/S: The liver is small consistent with history of cirrhosis. There is a right-sided pleural effusion. The spleen is enlarged. There are right renal calculi but no evidence of obstruction.
EGD 10/02/24: Grade I esophageal varices. Granular, nodular mucosa in the esophagus. Biopsied. 1 band placed around bleeding site with adequate hemostasis. Mucosal nodule found in the esophagus. Portal hypertensive gastropathy. A few non-bleeding
angioectasias in the stomach. Normal duodenal bulb and second portion of the duodenum.
CT chest 10/04/24:
1. LARGE RIGHT PLEURAL EFFUSION.
2. Severe atelectasis and airspace consolidation in the right lower, middle, and upper lobes with only mild aeration remaining in the right lung.
3. Small left pleural effusion.
4. Mild interstitial and alveolar cardiogenic pulmonary edema in the left lung.
5. Mild centrilobular emphysema.
6. MODERATE HEPATIC CIRRHOSIS.
7. Small volume of ascites.
8. Small hiatal hernia.
Echo: Left ventricle is small in size. Normal left ventricular wall thickness. Normal
regional wall motion. Normal left ventricular systolic function. Left
ventricular ejection fraction is 60-65%. Diastolic function indeterminate.
Thickened mitral valve leaflets. Mitral annular calcification. Mitral valve
opens normally. Mild mitral regurgitation.
Normal left atrium. Indexed LA volume is within normal range (15-34 mL/m2).
Trileaflet aortic valve. Calcified, thickened aortic valve with restricted
leaflet motion. Mild to moderate aortic stenosis. Aortic annular
calcification. Peak/mean gradients across the valve are 35/19 mmHg. Usingan
LVOT of 1.7 cm the calculated valve area is 1.1 cm2. Mild to moderate aortic
regurgitation.
Structurally normal tricuspid valve. Tricuspid valve opens normally. Mild to
moderate tricuspid regurgitation. Estimated pulmonary artery pressure of 41
mmHg, assuming a right atrial pressure of 3 mmHg.
Pleural effusion noted.
There is possible ascites.
Acute upper GI bleed:
-Presents with hematemesis and melena
-GI following
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
-follows with Jono Quiroz, felt to be a poor TIPS candidate
-was on IV PPI and octreotide. Patient has now completed a course of octreotide. Now on Protonix 40mg PO BID.
-cont Rocephin, will complete 7 days total abx
-cont ursodiol
-s/p 2U pRBCs for ABLA
-EGD 10/02/24 above
-Diet advanced to IDDSI-6
Large R pleural effusion:
-acute hypoxemic respiratory insufficiency due to large R pleural effusion
-was given IV Lasix 10/04/24AM
-s/p R thoracentesis 10/04/24 for 1050cc straw-colored fluid, transudative, FCx NG
-I suspect the patient's right pleural effusion is due to hepatic hydrothorax. Echo above, EF 60-65%, mild-mod .
Non-AG met acidosis:
-was on IVFs to D5W with 75meq NaHCO3 which were stopped due to large R pleural effusion
-resolved
Other problems:
Hypotension: Continue midodrine PRN
Hypothyroidism: Continue Levoxyl
CKD3a
FULL/SCDs
Anticipated Discharge: Today
Subjective/Interval History
-
Date of Service: October 06, 2024
Denies SOB.
Objective Data
-
Vital Signs:
Vital Signs
Temp Pulse Resp BP Pulse Ox
97.6 F 67 18 127/56 94
10/06/24 07:30 10/06/24 07:30 10/06/24 07:30 10/06/24 07:30 10/06/24 10:12
I&O
10/05/24 10/06/24 10/07/24
06:59 06:59 06:59
Intake Total 1500 / 1500 480 / 480
Balance 1500 / 1500 480 / 480
[2024-10-06 11:15] LABS: Hemoglobin 10.4 g/dL (12.0-16.0); Mean Corp Hgb Conc. 32.5 g/dL (33.0-37.0); Mean Corpuscular Hgb 28.6 pg (27.0-31.0); Mean Corpuscular Volume 87.9 fL (81.0-99.0); Mean Platelet Volume 11.3 fL (7.4-10.4); Platelet Count 93 10^3/uL (130-400); Red Blood Cell Count 3.64 10^6/uL (4.20-5.40); Red Cell Dist. Width 15.8 % (11.5-14.5)
[2024-10-06 11:29] LABS: Blood Urea Nitrogen 12 mg/dl (7-17); Calcium 8.4 mg/dl (8.4-10.2); Carbon Dioxide 22 mmol/L (22-30); Chloride 112 mmol/L (98-107); Estimated Creatinine Clearance 36 ml/min; Glucose 133 mg/dl (70-99); Potassium 3.9 mmol/L (3.5-5.1); Sodium 140 mmol/L (135-145); eGFR > 60.00
[2024-10-06] MEDS: ROCEPHIN 1000 MG IV (13:52)
[2024-10-06] MEDS: STERILE WATER FOR INJECTION 10 ML IV (13:52)
--- NOTE | 2024-10-06 14:45 | W.DCSUMMARY ---
Discharge Summary
Discharge Data
Date of Admission: 10/01/24
Date of Discharge: 10/06/24
-
Pending Results: Yes
Additional Pending Results:
R pleural fluid cytology
Hospital Course
Primary diagnoses:
Secondary diagnoses:
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
h/o GAVE
h/o esophageal varices s/p banding
Non-anion gap met acidosis
Other problems:
Hypotension
Hypothyroidism
Chronic kidney disease 3a
Consultants:
Gastroenterology
Imaging:
CXR: Right basilar opacification compatible with at least small right pleural effusion.
Abd U/S: The liver is small consistent with history of cirrhosis. There is a right-sided pleural effusion. The spleen is enlarged. There are right renal calculi but no evidence of obstruction.
EGD 10/02/24: Grade I esophageal varices. Granular, nodular mucosa in the esophagus. Biopsied. 1 band placed around bleeding site with adequate hemostasis. Mucosal nodule found in the esophagus. Portal hypertensive gastropathy. A few non-bleeding
angioectasias in the stomach. Normal duodenal bulb and second portion of the duodenum.
CT chest 10/04/24:
1. LARGE RIGHT PLEURAL EFFUSION.
2. Severe atelectasis and airspace consolidation in the right lower, middle, and upper lobes with only mild aeration remaining in the right lung.
3. Small left pleural effusion.
4. Mild interstitial and alveolar cardiogenic pulmonary edema in the left lung.
5. Mild centrilobular emphysema.
6. MODERATE HEPATIC CIRRHOSIS.
7. Small volume of ascites.
8. Small hiatal hernia.
Echo: Left ventricle is small in size. Normal left ventricular wall thickness. Normal
regional wall motion. Normal left ventricular systolic function. Left
ventricular ejection fraction is 60-65%. Diastolic function indeterminate.
Thickened mitral valve leaflets. Mitral annular calcification. Mitral valve
opens normally. Mild mitral regurgitation.
Normal left atrium. Indexed LA volume is within normal range (15-34 mL/m2).
Trileaflet aortic valve. Calcified, thickened aortic valve with restricted
leaflet motion. Mild to moderate aortic stenosis. Aortic annular
calcification. Peak/mean gradients across the valve are 35/19 mmHg. Usingan
LVOT of 1.7 cm the calculated valve area is 1.1 cm2. Mild to moderate aortic
regurgitation.
Structurally normal tricuspid valve. Tricuspid valve opens normally. Mild to
moderate tricuspid regurgitation. Estimated pulmonary artery pressure of 41
mmHg, assuming a right atrial pressure of 3 mmHg.
Pleural effusion noted.
There is possible ascites.
79-year-old female who presented with chief complaints of melena and hematemesis as outlined in the H&P done on admission. Hospital course by problem was:
Acute upper GI bleed: Hemoglobin was 8.5 on admission, dropped to 7.0, and patient received a total 2 units packed red blood cells while hospitalized. She was initially made n.p.o. and supported with IV fluids. She was placed on IV PPI and an
octreotide infusion (completed 72 hours). She was placed on IV Rocephin at the time of discharge is being discharged on oral ciprofloxacin to complete 7 days total of antibiotic therapy. She underwent EGD as above. Her granular nodular mucosa in
the esophagus was biopsied. Due to bleeding 1 band was placed. Pathology showed squamocolumnar mucosa with moderate acute and chronic inflammation. No intestinal metaplasia identified.
Large R pleural effusion: The patient developed acute hypoxemic respiratory insufficiency due to large right pleural effusion. She was given IV Lasix 10/04/24AM.she underwent R thoracentesis 10/04/24 for 1050cc straw-colored fluid, transudative, fluid
culture no growth. I suspect the patient's right pleural effusion is due to hepatic hydrothorax. Echo above, EF 60-65%, mild-mod . At the time of discharge the patient was requiring oxygen and is being discharged on home oxygen.
Discharge Plan
-
Patient Disposition: Home (Routine Discharge)
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
Condition: Fair
Diet: Other diet
Additional Diets: IDDSI-6, soft/bite sized
Activity: As tolerated
Driving Restrictions: As prior to admission
Bathing Restrictions: None
Blood Work: BMP and CBC in 1 week, script from PCP
Specialty Instructions: Weigh Daily- Call MD for wt gain/loss 3 lbs overnight/5 lbs in 1 week
Referrals:
Michael Melvin MD [Active] - in one to two weeks
Nelson Narayan DO [Family Provider] - in less than 1 week
Prescriptions:
New
sucralfate 100 mg/mL Suspension
1 g PO ACHS Qty: 1000 0RF
ciprofloxacin HCl [Cipro] 250 mg tablet
250 mg PO BID Qty: 4 0RF
Continued
ropinirole 1 mg Tablet
1 mg PO HS
furosemide [Lasix] 40 mg Tablet
40 mg PO DAILY
acetaminophen [Tylenol] 325 mg Tablet
650 mg PO Q4HPRN PRN (Reason: mild pain)
midodrine 5 mg Tablet
5 mg PO BIDPRN PRN (Reason: if BP<120)
therapeutic multivitamin Tablet
1 tab PO DAILY
tramadol 50 mg Tablet
50 mg PO TIDPRN PRN (Reason: moderate pains)
levothyroxine [Synthroid] 75 mcg Tablet
75 mcg PO DAILY
magnesium oxide 250 mg magnesium Tablet
250 mg PO DAILY
Refresh Optive 0.5-0.9 % Drops
1 drp BOTH EYES TIDPRN PRN (Reason: dry eyes)
levocetirizine 5 mg Tablet
5 mg PO HS
Ferrous Glycinate
28 mg PO DAILY
calcium carbonate [Calcium 600] 600 mg calcium (1,500 mg) Tablet
600 mg PO DAILY
ursodiol 300 mg Capsule
300 mg PO TID
albuterol sulfate 90 mcg/actuation Hfa Aerosol Inhaler
2 puff INHALATION R Q4HPRN PRN (Reason: sob)
cholecalciferol (vitamin D3) [Vitamin D3] 25 mcg (1,000 unit) Tablet
25 mcg PO DAILY
pantoprazole 40 mg tablet,delayed release (DR/EC)
40 mg PO BID
sodium bicarbonate 650 mg Tablet
650 mg PO DAILY Qty: 30 0RF
Discharge Orders:
Discharge Patient (As Directed); Ordered 10/06/24
Ordered By: Chaim Mccarthy
Discharge Date and Time
Print Language: YAKUT
[2024-10-06 15:15] VITALS: BP 113/71; BP 121/49; PULSE 72; O2SAT 92
--- NOTE | 2024-10-06 15:21 | PTOTSP ---
Patient presents at her physical baseline and I with all mobility. Patient is able to ambulate without an AD. O2 is new to patient - O2 tank managed by PT during session. At this time, patient demonstrates no skilled PT needs and patient self
reports that she doesn't feel that she needs home PT nor OP PT once discharged. Patient reports feeling confident that she can manage physically within her home once DCd. At this time, will sign off. Please reconsult if condition changes.
--- NOTE | 2024-10-06 15:53 | CM ---
Received notification that patient is cleared for discharge. Placed a call to [facility] and spoke with Jazmyn Tristan who stated that she would be able to bring o2 to patient. Faxed all clinical resp eval and script to [phone]. Jazmyn confirmed
receipt and stated that she will bring in to patient (portable) and concentrator to home.
Spoke with patient who stated that she understands she is being discharged. Reviewed o2 and what to expect. Reviewed IMM. It is signed on chart.
Plan: Case management will continue to follow and assist with discharge planning. Home with o2 when o2 is delivered.
[2024-10-06 18:57] VITALS: BP 145/65
== END 2024-10-06 20:22 | disposition home or self-care (01) | DRG 377 ==
LOC: 4 EAST ACU 13:47
PROVIDERS: Internal Medicine; Nurse Practitioner; Nurse Practitioner Family; Nurse Practitioner Gerontology; Radiology Diagnostic Radiology; ADMITTING PHYSICIAN Internal Medicine; CONSULT PHYSICIAN Internal Medicine Gastroenterology; EMERGENCY PHYSICIAN Emergency Medicine; FAMILY PHYSICIAN Family Medicine
PROC: 30233N1 Transfusion of Nonautologous Red Blood Cells into Peripheral Vein, Percutaneous Approach (ICD-10-PCS; 2024-10-01)
PROC: 0DB38ZX Excision of Lower Esophagus, Via Natural or Artificial Opening Endoscopic, Diagnostic (ICD-10-PCS; 2024-10-02)
PROC: 06L38CZ Occlusion of Esophageal Vein with Extraluminal Device, Via Natural or Artificial Opening Endoscopic (ICD-10-PCS; 2024-10-02)
PROC: 0W993ZX Drainage of Right Pleural Cavity, Percutaneous Approach, Diagnostic (ICD-10-PCS; 2024-10-04)
DX: K31.811 Angiodysplasia of stomach and duodenum with bleeding (principal); I85.11 Secondary esophageal varices with bleeding; D62 Acute posthemorrhagic anemia; K76.6 Portal hypertension; E87.20 Acidosis, unspecified; J90 Pleural effusion, not elsewhere classified; E46 Unspecified protein-calorie malnutrition; Z68.1 Body mass index [BMI] 19.9 or less, adult; D61.818 Other pancytopenia; R18.8 Other ascites; K31.89 Other diseases of stomach and duodenum; K74.3 Primary biliary cirrhosis; E03.9 Hypothyroidism, unspecified; N18.31 Chronic kidney disease, stage 3a; I08.3 Combined rheumatic disorders of mitral, aortic and tricuspid valves
CPT/HCPCS: 88305; 32555; 71045; 71046; 71250; 76700; 80048; 80053; 82248; 82962; 83615; 83735; 83986; 84155; 84157; 85014; 85018; 85025; 85027; 85610; 85730; 86850; 86900; 86901; 86920; 87015; 87070; 87205; 87502; 87811; 88112; 89051; 93306; 94640; 97161; P9016

== ENCOUNTER → 2024-11-29 11:49 | Outpatient (REF) | payer OTHER, SELFPAY | LOC: RAD 11:49 | PROVIDERS: ATTENDING PHYSICIAN Internal Medicine Gastroenterology; FAMILY PHYSICIAN Family Medicine | DX: K74.60 Unspecified cirrhosis of liver (principal) | CPT/HCPCS: 71046 ==

== ENCOUNTER → 2024-12-07 08:53 | Outpatient (REF) | payer OTHER, SELFPAY ==
[2024-12-07 09:00] VITALS: BP 127/52; BP_SYST 69
== END ==
LOC: RADI 08:53
PROVIDERS: ATTENDING PHYSICIAN Internal Medicine Gastroenterology; FAMILY PHYSICIAN Family Medicine
DX: J90 Pleural effusion, not elsewhere classified (principal)
CPT/HCPCS: 32555; 71045

== ENCOUNTER 2025-01-03 19:08 | Inpatient (IN) | payer OTHER, SELFPAY ==
[2025-01-03] VITALS (20 sets, daily range): BP systolic 103–143; BP diastolic 42–104; BMI 15.5; BMI 15.4
[2025-01-03 16:38] LABS: Hematocrit 25.5 % (37.0-47.0); Hemoglobin 8.3 g/dL (12.0-16.0); Mean Corp Hgb Conc. 32.5 g/dL (33.0-37.0); Mean Corpuscular Volume 89.2 fL (81.0-99.0); Nucleated Red Blood Cells % 0 %; Platelet Count 105 10^3/uL (130-400); Red Cell Dist. Width 17.2 % (11.5-14.5)
[2025-01-03 16:44] LABS: INR 0.93; PT 12.9 Sec (11.4-14.6)
[2025-01-03 16:45] LABS: APTT 31.7 Sec (23.4-35.0)
[2025-01-03 16:48] LABS: ALT (SGPT) 22 U/L (0-35); AST (SGOT) 44 U/L (14-36); Albumin 2.9 g/dl (3.5-5.0); Alkaline Phosphatase 368 U/L (38-126); Blood Urea Nitrogen 27 mg/dl (7-17); Calcium 8.6 mg/dl (8.4-10.2); Carbon Dioxide 21 mmol/L (22-30); Chloride 114 mmol/L (98-107); Estimated Creatinine Clearance 37 ml/min; Glucose 129 mg/dl (70-99); Potassium 3.9 mmol/L (3.5-5.1); Sodium 139 mmol/L (135-145); Total Protein 6.3 g/dl (6.3-8.2); eGFR > 60.00
--- NOTE | 2025-01-03 17:36 | ED.GENMED ---
History of Present Illness
General
Chief Complaint: Rectal Bleeding
Time Seen by Provider: 01/03/25 17:36
History of Present Illness
History of Present Illness:
TIME OF INITIAL EVALUATION
- 5:40 PM
REVIEW OF OLD RECORDS
- The patient has history of COPD, primary biliary,, CKD has had GI bleed in the past, has anemia. I reviewed records, the patient's hemoglobin was as low as 6.1 in July of this year. At that time she had esophageal varices and had dysplastic
lesions in the stomach treated with APC.
CHIEF COMPLAINT(S)
Rectal bleeding and vomiting blood.
HISTORY OF PRESENT ILLNESS
The patient is an 79-year-old female with a history of primary biliary cirrhosis and chronic obstructive pulmonary disease (COPD) presenting with rectal bleeding and hematemesis (vomiting blood). The patient reports experiencing a fever in the
morning which resolved with Tylenol. The patient vomited on Tuesday night and experienced rectal bleeding on Tuesday morning. The bleeding was described as bright red initially, but the examining physician noted stool that appeared very dark brown,
almost black, suggesting upper gastrointestinal bleeding. The patients hemoglobin levels have decreased from approximately 10.3 to 8.3 in a short time.
ADDITIONAL HISTORY OBTAINED FROM SOURCES OTHER THAN THE PATIENT
The patients spouse confirms the symptoms and the patients past medical history of bleeding with esophageal varices, for which banding was performed.
EXTERNAL RECORDS REVIEWED
The physician reviewed records indicating a prior visit in July where the patient had low hemoglobin levels and esophageal varices were found and treated. The current hemoglobin levels are noted to have decreased since the last visit.
CHRONIC MEDICAL CONDITIONS SIGNIFICANTLY AFFECTING CARE
Primary biliary cirrhosis
Chronic obstructive pulmonary disease (COPD)
PHYSICAL EXAM
- Gastrointestinal: Stool appears very dark brown, almost black, indicating potential upper gastrointestinal bleeding.
Nursing notes reviewed and vital signs reviewed.
PROBLEM LIST
Acute:
- Rectal bleeding
- Hematemesis
- Potential upper gastrointestinal bleeding
Chronic:
- Primary biliary cirrhosis
- Chronic obstructive pulmonary disease (COPD)
PLAN
- Administer octreotide and pantoprazole intravenously.
- Notify the gastrointestinal specialists for further evaluation and management.
- Plan for hospital admission for observation and treatment.
- Provide anti-nausea medication and consider low-dose narcotics for pain management, depending on the patients needs.
- Review further medical records for additional information.
DIFFERENTIAL DIAGNOSIS
The Differential Diagnosis includes, in no particular order and is not limited to:
1. Esophageal varices re-bleed
2. Gastric ulcers
3. Peptic ulcer disease
4. Padma-Mir tear
5. Coagulation disorder
6. Diverticulosis
7. Colon cancer
8. Hemorrhoids
9. Portal hypertension
10. Gastritis
RADIOLOGY
- Considered ultrasound imaging as she does report some discomfort. However I do not think this will environmental change analyst at this time. I did review the ultrasound from this past September which is consistent with known cirrhosis.
EKG
-
LABS
- Hemoglobin today is 8.3 down from 10.4 3 months ago, alk phos is chronically elevated
UPDATE
-SUMMARY OF ENCOUNTER
The patient is an 79-year-old female with a history of primary biliary cirrhosis and chronic obstructive pulmonary disease (COPD) who presented to the emergency department with complaints of rectal bleeding and hematemesis. The patient experienced
hematemesis on Tuesday night and rectal bleeding on Tuesday morning, with the stool appearing very dark brown, indicative of potential upper gastrointestinal bleeding. Her hemoglobin levels have significantly decreased, suggesting ongoing bleeding.
She was evaluated for signs of esophageal varices re-bleed and other differential diagnoses. Due to the decrease in hemoglobin and the history of esophageal variceal bleeding, the patient was administered intravenous medications and consultations
for further evaluation and management were conducted.
DISPOSITION
Admit
ASSESSMENT
The patient is presenting with acute rectal bleeding and hematemesis, suspecting an upper gastrointestinal source possibly due to re-bleed from esophageal varices. Her history of primary biliary cirrhosis and portal hypertension, along with the
clinical presentation, supports this assessment.
EMERGENCY TREATMENTS ADMINISTERED
The patient was administered octreotide (Sandostatin) drip and pantoprazole (Protonix) intravenously, along with low-dose hydromorphone (Dilaudid) for abdominal discomfort and ondansetron (Zofran) for nausea.
MANAGEMENT OF THE PATIENTS CARE WAS DISCUSSED WITH
The case was discussed with Dr. Reyna for admission, and Dr. St, a gastrointestinal specialist, was notified for further management.
PLAN
The patient is planned for hospital admission for observation and treatment of potential upper gastrointestinal bleeding. Further evaluation by gastrointestinal specialists will be conducted. Medications administered include octreotide and
pantoprazole. Pain management is provided with low-dose hydromorphone, and ondansetron is given for nausea. Continued monitoring and further diagnostic evaluation are planned to determine the source of bleeding and manage the underlying conditions.
MEDICAL DECISION MAKING
1. Number and Complexity of Problems Addressed:
Chronic conditions affecting care: primary biliary cirrhosis, chronic obstructive pulmonary disease (COPD).
Differential Diagnosis:
1. Esophageal varices re-bleed
2. Gastric ulcers
3. Peptic ulcer disease
4. Padma-Mir tear
5. Coagulation disorder
6. Diverticulosis
7. Colon cancer
8. Hemorrhoids
9. Portal hypertension
10. Gastritis
2. Data:
Category 1
- Non-emergency department records reviewed. External record reviewed: I reviewed the patients outpatient records, indicating low hemoglobin levels and prior esophageal varices treatment.
- Clinical information was obtained from an independent historian: Additional history obtained from the patients spouse regarding past medical history.
Category 3
- Discussion of management with other physician: Management discussed with Dr. Reyna (hospitalist) and Dr. St (processing rep).
3. Risk:
Due to the significant drop in hemoglobin and potential for continued bleeding, admission for observation and management was considered appropriate. Prescription medications were administered requiring monitoring for complications.
DIAGNOSIS
1. Upper gastrointestinal bleeding, likely due to esophageal varices re-bleed (ICD-10: K92.2)
2. Primary biliary cirrhosis (ICD-10: K74.3)
3. Chronic obstructive pulmonary disease (ICD-10: J44.9)
Past History
Past History
ED Past Medical History: Hypothyroidism and Other (Primary biliary cirrhosis, GI bleed, Crohn's disease)
Social History
Tobacco: Non-smoker
Alcohol: None
Drug: None
Personal:
Living: with family
Phy Exam
Physical Exam
Physical Exam:
See HPI
Course
Orders/Labs/Results
Orders:
Orders
01/03/25 15:58
Cardiac Monitoring- Treatment ONCE
IV Insert/Care/Rem.- Treatment PRN
O2 Therapy [RESP] Urgent
Titrate/Wean O2 to maintain O2 sat greater than (%): 93
Special Instructions: MAINTAIN CONTINOUS O2 SATS > OR = 93%
Pulse Ox/spot Check [RESP] Urgent
Quantity: 1
Special Instructions: ON ROOM AIR
01/03/25 16:24
Type+Screen Urgent
Complete Blood Count/With Diff Urgent
Comprehensive Metabolic Panel Urgent
NT-proBNP Urgent
Comment: ADD ON
PTT Urgent
Prothrombin Time Urgent
01/03/25 17:46
HYDROmorphone [Dilaudid] 0.5 mg IV NOW STA
Octreotide [Sandostatin] 100 mcg IV NOW STA
Ondansetron Injectable [Zofran] 4 mg IV NOW STA
Pantoprazole [Protonix IV] 80 mg IV NOW STA
01/03/25 18:01
Octreotide Acetate [Sandostatin] 600 mcg 0.9% Sodium Chloride 500 ml [Nss] 500 ml IV NOW
01/03/25 18:04
Sterile Water [Sterile Water For Injection] 20 ml .ROUTE .STK-MED ONE
01/03/25 18:25
Octreotide [Sandostatin] 100 mcg IV NOW STA
01/03/25 18:30
Pantoprazole 80 mg/100 ml Nss [Protonix] 80 mg in 100 ml IV Q10H
01/03/25 18:33
COVID-19 Antigen Routine
Source: Nasal Swab
01/03/25 18:34
CR Chest - 2 Views Urgent
Comment:
Reason For Exam: shortness of breath
01/03/25 18:44
Admit/Transfer Patient As Directed
Co-Sign Provider:
Level of Care: Inpatient admission
Assign to:: Telemetry
Physician / Group: Charlotte Reyna
Diagnosis: UGIB
Reason for Telemetry: Chest Pain syndromes
Date to Stop Telemetry: 01/05/25
Time to Stop Telemetry: 11:00
Reason for Hospitalization: UGIB
Expected length of stay greater than two midnights?: Yes
ELOS- Estimated Length of Stay in days: 3
I certify the patient meets the requirements for IP care: Yes
PRN Pain Medication Management As Directed
May give lesser potent ordered pain med per pt: Yes
preference::
Protocol:: Medication orders for pain may be administered in a
manner that supports deferring to patient preference
when the pt is:
- Requesting an ordered lesser potent pain medication.
Least to most potent pain medications are defined
as: acetaminophen < NSAID < tramadol < opioids
(morphine, oxycodone, hydromorphone).
- Requesting a lesser dose of the same medication IF
ORDERED.
- Requesting a less intrusive route of administration
if both routes are prescribed by the provider (PO <
IV).
01/03/25 18:46
Code Status As Directed
Resuscitation Status: Do not resuscitate
Reached after discussion with pt or family/Healthcare POA: Yes
DNR Bracelet Application ONCE
01/03/25 18:54
Add On- LAB Routine
Tests Added?: BNP
Influenza A+B Rapid Molecular Urgent
MICHELLE Source: Nasal Swab
Specimen Description:
01/03/25 20:00
CefTRIAXone [Rocephin] 1,000 mg IV Q24H
01/05/25 11:00
DC Protocol for Telemetry ONCE
Abnormal Lab Results
01/03/25
16:24
RBC 2.86 L 10^6/uL
(4.20-5.40)
Hgb 8.3 L g/dL
(12.0-16.0)
Hct 25.5 L %
(37.0-47.0)
MCHC 32.5 L g/dL
(33.0-37.0)
RDW 17.2 H %
(11.5-14.5)
Plt Count 105 L 10^3/uL
(130-400)
MPV 11.6 H fL
(7.4-10.4)
Absolute Lymphs (auto) 0.7 L 10^3/uL
(1.2-3.4)
Neutrophils % 77.6 H %
(42.2-75.2)
Lymphocytes % 10.6 L %
(20.5-51.1)
Chloride 114 H mmol/L
(98-107)
Carbon Dioxide 21 L mmol/L
(22-30)
BUN 27 H mg/dl
(7-17)
Glucose 129 H mg/dl
(70-99)
AST 44 H U/L
(14-36)
Alkaline Phosphatase 368 H U/L
(38-126)
Albumin 2.9 L g/dl
(3.5-5.0)
01/03/25 16:24
01/03/25 16:24
Vital Signs
Initial and Last Documented VS:
Initial Vital Signs
Temp Pulse Resp BP
36.6 C 85 20 115/42
01/03/25 15:37 01/03/25 15:37 01/03/25 15:37 01/03/25 15:37
Last Documented Vital Signs
Temp Pulse Resp BP Pulse Ox
36.6 C 86 24 121/52 97
01/03/25 15:37 01/03/25 19:00 01/03/25 19:00 01/03/25 19:00 01/03/25 17:36
*Pulse Oximetry
SaO2: 97
Nasal Cannula flow liters per minute: 3
Patient hypoxic: no
*Critical Care Note
Total Time (30-74mins, 75-104mins- exclusive of procedures): Not Applicable
ED Attending Note
-
Portions of this chart may have been created with voice recognition software.� Occasional wrong word or��sound alike� substitutions may have occurred due to the inherent limitations of voice recognition software.
Discharge Plan
Departure
Patient Disposition: Admit
Date of Disposition: 01/03/25
Time of Disposition: 17:53
Presentation/result/management discussed w/ accepting MD/DO: Hospitalist
Discharge Problem:
Upper gastrointestinal bleed
Interventions
Interventions:
*Risk Screen - Suicide Last Done: 01/03/25 15:37
*General Assessment Last Done: 01/03/25 15:37
*Neglect/Abuse Screening Last Done: 01/03/25 15:55
*ED- Fall Risk Assessment Last Done: 01/03/25 15:55
*ED COVID-19 Vaccine History Last Done: 01/03/25 15:46
BN-Yrpyos-Xdvmyuznji Assessment Last Done: 01/03/25 16:33
ED- Cardiac Assessment Last Done: 01/03/25 16:33
ED- Pulmonary Assessment Last Done: 01/03/25 16:33
--- NOTE | 2025-01-03 18:11 | HPS.HSE ---
Family Physician
-
Family Physician: Nelson Narayan
Chief Complaint
-
rectal bleeding
History of Present Illness
Ms. Dottie Mccarthy is a 79 yo woman with hx COPD, chronic hypoxic resp failure on home O2, primary biliary cirrhosis, GAVE, esophageal varies s/p banding, hypothyroidism, CKD III, recent admission 10/26 for UGIB presents to the ER with hematemesis and
BRBPR.
Patient states she vomited blood 2 days ago, none since. She also had bloody stools, now melena. Given continuation of melena, she came to the ER. She denies chest pain. No lightheadedness or dizziness. She received Zofran earlier, currently
denies nausea.
She has chronic right lower quadrant pain. She was able to eat and drink well today.
She reports a fever earlier this week to 102, none since. Denies congestion but states she feels short of breath. No LE swelling.
Medical History
Past Medical History
Past Medical History: Reports Other (Cirrhosis due to PBC GAVE, APC x 1 in the past Esophageal varices s/p banding Hypothyroidism)
Past Surgical History: Reports Other (N/A)
Social History
Tobacco: Non-smoker
Alcohol: None
Drug: None
Family History
Family History: Not pertinent
Allergies / Home Medications
Allergies reflects when Allergies were last updated in [employer].
Home Medications with original date entered in [employer]
Allergy/Medication List:
Allergies
Allergy/AdvReac Type Severity Reaction Status Date / Time
No Known Allergies Allergy Verified 01/03/25 15:46
Home Medications
carboxymethylcellulose 0.5 %-glycerin 0.9 % eye drops (Refresh Optive) 1 drp BOTH EYES TIDPRN PRN dry eyes 06/18/24
levocetirizine 5 mg tablet 5 mg PO HS Allergies 06/18/24
levothyroxine 75 mcg tablet (Synthroid) 75 mcg PO DAILY Thyroid 06/18/24
ropinirole 1 mg tablet 1 mg PO HS Neurological Condition 06/18/24
therapeutic multivitamin 1 tab PO DAILY Supplement 06/18/24
tramadol 50 mg tablet 50 mg PO Q8HPRN PRN moderate pains 06/18/24
calcium carbonate (Calcium 600) 600 mg PO DAILY Supplement 07/05/24
cholecalciferol (vitamin D3) 25 mcg (1,000 unit) tablet (Vitamin D3) 25 mcg PO DAILY Supplement 07/05/24
ursodiol 300 mg capsule 300 mg PO TID Gastrointestinal Issue 07/05/24
pantoprazole 40 mg tablet,delayed release 40 mg PO BID Gastrointestinal Issue 07/07/24
sodium bicarbonate 650 mg tablet 650 mg PO DAILY Kidney Disease #30 tabs 07/09/24
Iron Supplement 1 tab PO Q48H 01/03/25
acetaminophen 500 mg tablet (Tylenol Extra Strength) 1,000 mg PO DAILYPRN PRN mild pain/fever 01/03/25
Review of Systems
-
History Source: Patient
A 12 point ROS was completed and negative except as noted: Yes
Physical Exam
Vital Signs
Vital Signs
Temp Pulse Resp BP Pulse Ox
97.8 F 74 23 120/43 97
01/03/25 15:37 01/03/25 17:30 01/03/25 17:30 01/03/25 17:30 01/03/25 17:36
Physical Exam
General: No Apparent Distress
HEENT: PERRLA
Respiratory: Decreased Breath Sounds; No Wheezes
Cardiac: S1/S2, Regular Rhythm, Murmur and JVD
GI: Soft and Non Tender
Musculoskeletal: No Edema
Skin: Warm and Dry; No Rash
Neuro: AO x 3
Psych: Calm
Laboratory Results
-
01/03/25 16:24
01/03/25 16:24
Laboratory Results
PT 12.9 Sec (11.4-14.6) 01/03/25 16:24
INR 0.93 01/03/25 16:24
APTT 31.7 Sec (23.4-35.0) 01/03/25 16:24
Total Bilirubin 0.9 mg/dl (0.2-1.3) 01/03/25 16:24
AST 44 U/L (14-36) H 01/03/25 16:24
ALT 22 U/L (0-35) 01/03/25 16:24
Alkaline Phosphatase 368 U/L (38-126) H 01/03/25 16:24
Data Reviewed
-
Diagnostic Radiology: Report Reviewed by me
Lab Data: Labs Reviewed by me
Impression/Plan
-
Ms. Dottie Mccarthy is a 79 yo woman with hx COPD, primary biliary cirrhosis, GAVE, esophageal varies s/p banding, hypothyroidism, CKD III, recent admission 10/26 for UGIB presents to the ER with hematemesis and BRBPR.
Triage VS: T 36.6, P 85, RR 20, BP 115/42
LABS: WBC 6.6, Hg 8.3 (10.4 10/06/24), PLT 105, Na 139, K+ 3.9, Cl 114, CO2 21, BUN 21, Cr 0.8, Glucose 129, T. Bili 0.9, AST 44, ALT 22, Alk PHos 368
EGD 10/02/24
Impression: - Grade I esophageal varices.
- Granular, nodular mucosa in the esophagus. Biopsied.
1 band placed around bleeding site with adequate
hemostasis.
- Mucosal nodule found in the esophagus.
- Portal hypertensive gastropathy.
- A few non-bleeding angiectasias in the stomach.
- Normal duodenal bulb and second portion of the
duodenum.
Upper GI Bleeding
Decompensated Cirrhosis 2/2 PBC with varices
GAVE
-admit to telemetry
-Hg 8.3, will continue to trend q 6 hours and transfuse if Hg < 8 (blood consent signed in ER)
-continue IV Protonix gtt, IV Octreotide gtt, IV Ceftriaxone for SBP PPx
-clear liquids this evening, NPO after MN (hold off on IVF as patient appears more wet on exam - see below)
-GI consult
-[facility] [address] [facility] Ursodiol
Acute Heart Failure preserved EF Exacerbation
Hx recurrent right pleural effusion
-s/p thoracentesis last admission
-TTE 10/05/24 with EF 60-65%; mild to moderate , mild to moderate AR
-patient was on Lasix 40mg PO QD last admission that is now off medication list
-follow up CXR and BNP, will consider Lasix although weight less than last time
Chronic Hypoxic Resp failure
COPD
-no active wheezing on exam
Hypothyroidism - [facility] [facility] Synthroid
CKD III - [facility] [facility] Sodium Bicarb
DVT PPx SCD
DNR - discussed on admission
76 minutes spent on patient care
[2025-01-03] MEDS: ZOFRAN 4 MG IV (18:12)
[2025-01-03] MEDS: PROTONIX IV 80 MG IV (18:17)
[2025-01-03] MEDS: DILAUDID 0.5 MG IV (18:29)
[2025-01-03] MEDS: SANDOSTATIN 100 MCG IV (18:49)
[2025-01-03] MEDS: SANDOSTATIN 500.6 MCG IV (18:51)
[2025-01-03] MEDS: ROCEPHIN 1000 MG IV (19:35)
[2025-01-03] MEDS: STERILE WATER FOR INJECTION 10 ML IV (19:35)
[2025-01-03 19:45] LABS: COVID-19 Antigen Negative (Negative)
[2025-01-03] MEDS: PROTONIX 100 IV (20:13)
--- NOTE | 2025-01-03 20:59 | W.PN.UPDATE ---
Update Note
Progress Note Update
CXR: IMPRESSION:
Significant right hemithorax opacification appears to be secondary to a combination of large pleural fluid and atelectasis.
-IR Consulted for Thoracentesis tomorrow
-Pulmonary consulted
-given report of fever several days ago, will start treatment for CAP as possible patient with infection hidden by fluid
-IV Lasix 40mg IV x 1 now, monitor response and consider further dosing post thoracentesis
[2025-01-03] MEDS: LASIX 40 MG IV (21:41)
[2025-01-03] MEDS: VIBRAMYCIN 100 MG PO (21:41)
[2025-01-03] MEDS: KCL 20 MEQ PO (21:41)
[2025-01-03] MEDS: ACTIGALL 300 MG PO (21:42)
[2025-01-03] MEDS: REQUIP 1 MG PO (21:42)
[2025-01-03] MEDS: ZYRTEC 5 MG PO (21:43)
[2025-01-03 23:06] LABS: Hematocrit 27.4 % (37.0-47.0); Hemoglobin 8.9 g/dL (12.0-16.0)
--- NOTE | 2025-01-03 23:37 | PTCARENOTE ---
Patient arrived from the ED via stretcher at approximately 2029. Patient shifted self over from stretcher to bed x1 assist. Patient AAOx3, forgetful. Patient arrived from ED w/ octreotide gtt running @ 50mcg/hr through L AC and Protonix gtt running
@ 8mg/hr through R Hand. VSS as documented. Assessment as documented. Patient oriented to room. Bed in lowest position. Call tucker within reach.
[2025-01-04] VITALS (14 sets, daily range): BP systolic 99–125; BP diastolic 43–68; PULSE 68–84; BMI 14.9
[2025-01-04] MEDS: PROTONIX 100 IV ×2 (04:51→16:08)
[2025-01-04 05:50] LABS: Hematocrit 22.9 % (37.0-47.0); Hemoglobin 7.4 g/dL (12.0-16.0); Mean Corp Hgb Conc. 32.3 g/dL (33.0-37.0); Mean Corpuscular Volume 89.5 fL (81.0-99.0); Nucleated Red Blood Cells % 0 %; Platelet Count 86 10^3/uL (130-400); Red Cell Dist. Width 17.3 % (11.5-14.5)
--- NOTE | 2025-01-04 06:04 | W.PN.UPDATE ---
Update Note
Progress Note Update
Hgb level dropped this am from 8.9 to 7.4. No signs of bleeding, bp soft 99/43, HR 76, RR20, Spo2 95% and temp 97.6. One unit of blood ordered.
[2025-01-04 06:10] LABS: ALT (SGPT) 19 U/L (0-35); AST (SGOT) 36 U/L (14-36); Albumin 2.5 g/dl (3.5-5.0); Alkaline Phosphatase 322 U/L (38-126); Blood Urea Nitrogen 24 mg/dl (7-17); Calcium 8.0 mg/dl (8.4-10.2); Carbon Dioxide 20 mmol/L (22-30); Chloride 115 mmol/L (98-107); Estimated Creatinine Clearance 29 ml/min; Glucose 111 mg/dl (70-99); Potassium 4.2 mmol/L (3.5-5.1); Sodium 140 mmol/L (135-145); Total Protein 5.7 g/dl (6.3-8.2); eGFR 56.95
[2025-01-04] MEDS: SANDOSTATIN 500.6 MCG IV ×2 (06:15→20:21)
[2025-01-04] MEDS: SYNTHROID 75 MCG PO (06:15)
[2025-01-04 06:45] LABS: LDH 157 U/L (120-246)
--- NOTE | 2025-01-04 07:02 | CON.GI ---
Addendum entered and electronically signed by Margarita St DO 01/04/25 09:21:
The patient was seen and examined by me independently in collaboration with the nurse practitioner.
Past medical history/social history/medications/allergies/family history reviewed.
Lab data and imaging data reviewed.
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 She has had several prior similar
admissions, approximately every 2 months, both locally and in [place], of small volume hematemesis with overall unremarkable EGDs to follow. Her hemoglobin remains stable and she is discharged home, eventually to return a few months later with the
same. She does have a history of varices but on these repeated endoscopic exams, she does not appear to be bleeding from varices. Her main complaint is her discomfort due to shortness of breath.
Admitting labs notable for hemoglobin of 8.3 -->7.4, plt 86, INR 0.93, BUN 27, bili 0.9, AST 44, ALT 22, alk phos 368, albumin 2.9.
She follows outpatient with Dr. Tatum and Dr. Quiroz, recently met with both palliative care and hospice. At this time, she would like to proceed with palliative care, is not quite ready for hospice care. We had a long discussion about repeating her
EGD or monitoring her closely and proceeding with EGD only if it appears she is still actively bleeding. At this time, she wishes to have her thoracentesis performed to make her more comfortable, holding off on EGD and monitoring for 24 hours. If no
active bleeding and hemoglobin stable, she would prefer to go home and not proceed with EGD, which is reasonable.
Plan:
-IR for thoracentesis
-continue PPI gtt, octreotide gtt, Abx
-continue ursodiol
-monitor H&H
-no stools overnight but did have a drop in hemoglobin
-transfuse for hemoglobin <7
-hold on EGD for now, will revisit if hemoglobin continues to drop/continued or active GI bleeding
Original Note:
Consultation
-
Date/Time Consultation Requested: 01/03/252029
Date/Time Consultation Performed: 01/04/25 0700
Requesting Provider: Charlotte Reyna MD
Performing Provider: JOHNY Flores, Estephania St DO
Reason for Consultation: GI bleed
Medical History
Chief Complaint / HPI
Chief Complaint: vomiting blood and black stools
History of Present Illness:
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
Chronic hypotension, presents with several prior admissions with UGI bleed and now recurrent hematemesis and bright red blood per rectum. Pt has been seen by in [place] as well as [place] and Dr. Quiroz in past and due follow up next
week with Dr. Quiroz. Pt also currently follows with Dr. Tatum. On admission hbg 8.3 with drop to 7.4, platelets down to 86,000, INR 0.93, BUN 27, bili 0.9, AST 44, ALT 22, alk phos 368, albumin 2.9.
In review with patient noted with fever on Tuesday and vomiting about 1 1/2 -2 cups red blood. She then persisted with red and black stools that got darker over the week. She also admits to increased shortness of breath prompting admission.
She also admit to some occasional right sided abdominal pain but denies abdominal distention. She denies odynophagia, GERD,or diarrhea.
EGD: 06/18/24 (Dr. Ashley) grade 1 small EV non banding, nodule in esophagus at GE junction without bleeding bilious gastric fluid, portal HTN gastropathy otherwise normal no specimens collected
EGD:07/06/2024 (Dr. Tatum) Grade II esophageal varices. Completely eradicated., banded x 3, portal HTN gastropathy, multiple bleeding angiodysplastic lesions s/p APC
EGD 09/2024 first admit ([facility]): Per patient and no varices. No interventions performed. Was transfused 1 unit packed red blood cells- record requested not received
EGD 09/2024 second admit ([facility]): Per patient and no varices. No interventions performed. Was transfused 1 unit packed red blood cells.- records requested not received
EGD 10/02/2024- [facility]colm's, Grade I EV, grandular mucosa in esophagus, bx with nodularity with bleeding and band placed, separate area of concern but no bx taken, PHG, non bleeding angio ectasia in stomach bx no metaplasia,
squamocolumnar mucosa moderate acute and chronic inflammation
colonoscopy 1 year and in past incomplete pt unsure of details done in [place]
Past Medical History
Past Medical History: COPD, Hypothyroidism, Renal Failure (CKD) and Other (Primary Biliary Cirrhosis, EV with prior banding, PHG/GAVE, hypotension, pleural effusions )
Social History
Tobacco: Non-Smoker
Alcohol: None
Drug: None
Personal:
Living: With Family
Family History
Family History: Other (No family hx GI malignancy or IBD)
Allergies / Home Medications
Allergy/AdvReac Type Severity Reaction Status Date / Time
No Known Allergies Allergy Verified 01/03/25 15:46
�Medication �Instructions �Recorded
carboxymethylcellulose 0.5 1 drp BOTH EYES TIDPRN PRN dry eyes 06/18/24
%-glycerin 0.9 % eye drops
(Refresh Optive)
levocetirizine 5 mg tablet 5 mg PO HS Allergies 06/18/24
levothyroxine 75 mcg tablet 75 mcg PO DAILY Thyroid 06/18/24
(Synthroid)
ropinirole 1 mg tablet 1 mg PO HS Neurological Condition 06/18/24
therapeutic multivitamin 1 tab PO DAILY Supplement 06/18/24
tramadol 50 mg tablet 50 mg PO Q8HPRN PRN moderate pains 06/18/24
calcium carbonate (Calcium 600) 600 mg PO DAILY Supplement 07/05/24
cholecalciferol (vitamin D3) 25 25 mcg PO DAILY Supplement 07/05/24
mcg (1,000 unit) tablet (Vitamin
D3)
ursodiol 300 mg capsule 300 mg PO TID Gastrointestinal 07/05/24
Issue
pantoprazole 40 mg tablet,delayed 40 mg PO BID Gastrointestinal Issue 07/07/24
release
sodium bicarbonate 650 mg tablet 650 mg PO DAILY Kidney Disease #30 07/09/24
tabs
Iron Supplement 1 tab PO Q48H 01/03/25
acetaminophen 500 mg tablet 1,000 mg PO DAILYPRN PRN mild 01/03/25
(Tylenol Extra Strength) pain/fever
Review of Systems
-
History Source: Patient
Constitutional: Reports Weight Loss (over time )
EENT: Reports No Symptoms
Respiratory: Reports Trouble Breathing
Abdomen/GI: Reports Abdominal Pain, Nausea, Vomiting (with hematemesis on Tuesday ) and Bloody Stools (some red and some dark stools)
: Reports No Symptoms
Musculoskeletal: Reports No Symptoms
Skin: Reports No Symptoms
Neurological: Reports Weakness
Endocrine: Reports No Symptoms
Hematologic/Lymphatic: Reports Bleeding
Vital Signs
Temp Pulse Resp BP Pulse Ox
97.6 F 76 20 99/43 95
01/04/25 06:11 01/04/25 06:11 01/04/25 06:11 01/04/25 06:11 01/04/25 06:11
Physical Exam
Exam
General: Well Developed and Well Nourished
HEENT: Normocephalic
Respiratory: Other (decreased bases )
Cardiac: Regular Rhythm
GI: Soft, Non Distended and Tender (mild )
Musculoskeletal: No Clubbing and No Cyanosis
Skin: Warm and Dry
Neuro: Awake, Alert and AO x 3
Psych: Calm
Results
WBC 7.1 10^3/uL (4.8-10.8) 01/04/25 05:16
Hgb 7.4 g/dL (12.0-16.0) L 01/04/25 05:16
Hct 22.9 % (37.0-47.0) L 01/04/25 05:16
MCV 89.5 fL (81.0-99.0) 01/04/25 05:16
Plt Count 86 10^3/uL (130-400) L 01/04/25 05:16
Absolute Neuts (auto) 5.2 10^3/uL (1.4-6.5) 01/04/25 05:16
PT 12.9 Sec (11.4-14.6) 01/03/25 16:24
INR 0.93 01/03/25 16:24
APTT 31.7 Sec (23.4-35.0) 01/03/25 16:24
Sodium 140 mmol/L (135-145) 01/04/25 05:16
Potassium 4.2 mmol/L (3.5-5.1) 01/04/25 05:16
Chloride 115 mmol/L (98-107) H 01/04/25 05:16
Carbon Dioxide 20 mmol/L (22-30) L 01/04/25 05:16
BUN 24 mg/dl (7-17) H 01/04/25 05:16
Creatinine 1.0 mg/dL (0.6-1.0) 01/04/25 05:16
Calcium 8.0 mg/dl (8.4-10.2) L 01/04/25 05:16
Total Bilirubin 0.9 mg/dl (0.2-1.3) 01/04/25 05:16
AST 36 U/L (14-36) 01/04/25 05:16
ALT 19 U/L (0-35) 01/04/25 05:16
Alkaline Phosphatase 322 U/L (38-126) H 01/04/25 05:16
Diagnostic Image Results:
Prior GI Procedures:
EGD: 06/18/24 (Dr. Ashley) grade 1 small EV non banding, nodule in esophagus at GE junction without bleeding bilious gastric fluid, portal HTN gastropathy otherwise normal no specimens collected
EGD:07/06/2024 (Dr. Tatum) Grade II esophageal varices. Completely eradicated., banded x 3, portal HTN gastropathy, multiple bleeding angiodysplastic lesions s/p APC
EGD 09/2024 first admit ([facility]): Per patient and no varices. No interventions performed. Was transfused 1 unit packed red blood cells- record requested not received
EGD 09/2024 second admit ([facility]): Per patient and no varices. No interventions performed. Was transfused 1 unit packed red blood cells.- records requested not received
EGD 10/02/2024- [facility]-possible [facility]colm's, Grade I EV, grandular mucosa in esophagus, bx with nodularity with bleeding and band placed, separate area of concern but no bx taken, PHG, non bleeding angio ectasia in stomach bx no metaplasia,
squamoclolumnar mucosa moderate acute and chronic inflammation
Colonoscopy: pt report hx colon 1 year ago and prior incomplete colonoscopy in [place]
Assessment / Plan
-
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
Chronic hypotension, presents with several prior admissions with UGI bleed and now recurrent hematemesis and bright red blood per rectum. Pt has been seen by in [place] as well as [place] and Dr. Quiroz in past and due follow up next
week with Dr. Quiroz. Pt also currently follows with Dr. Tatum. On admission hbg 8.3 with drop to 7.4, platelets down to 86,000, INR 0.93, BUN 27, bili 0.9, AST 44, ALT 22, alk phos 368, albumin 2.9.
EGD: 06/18/24 (Dr. Ashley) grade 1 small EV non banding, nodule in esophagus at GE junction without bleeding bilious gastric fluid, portal HTN gastropathy otherwise normal no specimens collected
EGD:07/06/2024 (Dr. Tatum) Grade II esophageal varices. Completely eradicated., banded x 3, portal HTN gastropathy, multiple bleeding angiodysplastic lesions s/p APC
EGD 09/2024 first admit ([facility]): Per patient and no varices. No interventions performed. Was transfused 1 unit packed red blood cells- record requested not received
EGD 09/2024 second admit ([facility]): Per patient and no varices. No interventions performed. Was transfused 1 unit packed red blood cells.- records requested not received
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
squamocolumnar mucosa moderate acute and chronic inflammation
colonoscopy 1 year and in past incomplete pt unsure of details done in [place]
-hematemesis 12/31
-red and black stools 01/01-01/03
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
-Decompensated Cirrhosis 2/2 PBC with varices
-hx GAVE/PHG/EV with prior banding
-anemia
-acute heart failure with preserved EF
-hx incomplete colonoscopy
other med problems:
COPD
Hypothyroidism
CKD III
DNR
PLAN:
etiology of bleeding related to PHG,GAVE, EV vs other
pt has had discussion with primary GI Dr. Tatum about progression of disease and comfort/hospice
she is not quit ready for hospice but admits to focus on comfort and less aggressive care-- she has completed multiple EGD's in past year and wishes to hold for now but agreeable for PRBC's and thoracentesis
no stools overnight but some drop in hbg
ok for regular diet
cont Ursodiol
trend hbg
cont PPI/octeotide/abx for now
for pulm eval for effusion
offered hospice eval but pt states she has been given info in past and did not need any more info
Pt due follow up withDr. Quiroz nexgt week(pt considering cancelling as forcus on comfort) and due to see Dr. Tatum 01/15 at noon
-
-
Thank you for consultation and allowing me to participate in the patient's care. Please call the multifocal [facility] physician during the after hours with any questions or concerns.
[2025-01-04] MEDS: VIBRAMYCIN 100 MG PO ×2 (08:46→19:51)
[2025-01-04] MEDS: ACTIGALL 300 MG PO ×3 (08:46→21:06)
[2025-01-04] MEDS: SODIUM BICARBONATE 650 MG PO (08:47)
--- NOTE | 2025-01-04 11:18 | CON.PUL ---
Consultation
Consultation Request
Date/Time Consultation Requested: 01/04/2025-7 a.m.
Date/Time Consultation Performed: 01/04/2025-7:30 AM
Requesting Provider: hospitalist
Performing Provider: Dr. Garcia
Reason for Consultation: shortness of breath/recurrent pleural effusion
Medical History
-
Chief Complaint: shortness of breath
History of Present Illness:
79-year-old female with underlying oxygen dependent COPD, primary biliary cirrhosis, esophageal varices status post banding, hypothyroidism, chronic kidney disease with recent admission for upper GI bleed who has recurrent right pleural effusions
with multiple thoracenteses in the past-last 12 October 2024-who presents with probable recurrent gastrointestinal bleeding and increasing shortness of breath and noted to have a large right pleural effusion-pulmonary consulted for shortness of
breath/pleural effusion 01/04/25. the patient states that she has shortness of breath with minimal exertion. She offers no complaints of chest pain, chest congestion, productive cough, pleurisy, abdominal pain, nausea, or focal weakness.
Past Medical History
Past Medical History: None ( COPD. Hypothyroid. Chronic kidney disease. Primary biliary cirrhosis with varices and banding. PHG/GAVE. Recurrent right pleural effusion status post thoracentesis x 4)
Social History
Tobacco: Former Smoker ([id number] quit 20 years ago)
Alcohol: None
Drug: None
Living: With Family
Occupational Exposures: no known asbestos exposure
Environmental Exposures: no known tuberculosis exposure
Family History
Family History: Reviewed & Not Pertinent
Allergies / Home Medications
Allergies
Allergy/AdvReac Type Severity Reaction Status Date / Time
No Known Allergies Allergy Verified 01/03/25 15:46
Home Medications
�Medication �Instructions �Recorded �Confirmed �Last Taken �Type
carboxymethylcellulose 0.5 1 drp BOTH EYES TIDPRN PRN dry eyes 06/18/24 01/03/25 01/02/25 History
%-glycerin 0.9 % eye drops
(Refresh Optive)
levocetirizine 5 mg tablet 5 mg PO HS Allergies 06/18/24 01/03/25 01/02/25 History
levothyroxine 75 mcg tablet 75 mcg PO DAILY Thyroid 06/18/24 01/03/25 01/03/25 History
(Synthroid)
ropinirole 1 mg tablet 1 mg PO HS Neurological Condition 06/18/24 01/03/25 01/02/25 History
therapeutic multivitamin 1 tab PO DAILY Supplement 06/18/24 01/03/25 01/03/25 History
tramadol 50 mg tablet 50 mg PO Q8HPRN PRN moderate pains 06/18/24 01/03/25 01/02/25 History
calcium carbonate (Calcium 600) 600 mg PO DAILY Supplement 07/05/24 01/03/25 01/03/25 History
cholecalciferol (vitamin D3) 25 25 mcg PO DAILY Supplement 07/05/24 01/03/25 01/03/25 History
mcg (1,000 unit) tablet (Vitamin
D3)
ursodiol 300 mg capsule 300 mg PO TID Gastrointestinal 07/05/24 01/03/25 01/03/25 History
Issue
pantoprazole 40 mg tablet,delayed 40 mg PO BID Gastrointestinal Issue 07/07/24 01/03/25 01/03/25 History
release
sodium bicarbonate 650 mg tablet 650 mg PO DAILY Kidney Disease #30 07/09/24 01/03/25 01/03/25 Rx
tabs
Iron Supplement 1 tab PO Q48H Supplement 01/03/25 01/03/25 01/03/25 History
acetaminophen 500 mg tablet 1,000 mg PO DAILYPRN PRN mild 01/03/25 01/03/25 12/31/24 History
(Tylenol Extra Strength) pain/fever
Review of Systems
-
Unable to Obtain full review of systems at this time due to: Other ( per HPI)
Vitals / Labs / Diagnostic Testing
Vital Signs
Temp Pulse Resp BP Pulse Ox
98 F 74 16 114/56 96
01/04/25 11:03 01/04/25 11:03 01/04/25 11:03 01/04/25 11:03 01/04/25 11:03
Lab Data
01/04/25 05:16
Laboratory Results
01/03/25
16:24
PT 12.9
INR 0.93
APTT 31.7
Microbiology
01/03/25 18:55 Nasal Swab Influenza Types A & B (MIKE) - Final
Negative for Influenza A & B, NAAT
Negative results must be combined with clinical observations
and patient history.
Nucleic Acid Amplification test (NAAT)performed on the
[employer] platform.
Diagnostic Testing:
Physical Exam
-
Exam:
well-nourished and well-developed in no apparent distress
HEENT-atraumatic, normocephalic
Neck-supple, no JVD, no bruit
Heart-regular rate and rhythm-no murmurs, rubs or gallops
Chest with diminished breath sounds at the right base, rare crackles mid right lung field and left base with prolonged expiratory time and no wheezes
Back-no tenderness
Abdomen-soft, nontender, distended, no hepatosplenomegaly
Extremities-no cyanosis, clubbing, edema , trace lower extremity edema
Integument-intact, no rashes, lesions or ecchymosis
Neurology-alert and oriented, nonfocal motor and sensory exam
Assessment
-
79-year-old female with underlying oxygen dependent COPD, primary biliary cirrhosis, esophageal varices status post banding, hypothyroidism, chronic kidney disease with recent admission for upper GI bleed who has recurrent right pleural effusions
with multiple thoracenteses in the past-last one December 2024-who presents with probable recurrent gastrointestinal bleeding and increasing shortness of breath and noted to have a large right pleural effusion-pulmonary consulted for shortness of
breath/pleural effusion 01/04/25.
Gastrointestinal bleed
Anemia due to acute blood loss
Recurrent right pleural effusion status post multiple thoracenteses
Thoracentesis01/04/25 -pending
COPD without acute exacerbation
Mild hyperglycemia
Hypoalbuminemia
DNR
Conditions present prior to admission:
COPD.
Hypothyroid.
Chronic kidney disease.
Primary biliary cirrhosis with varices and banding.
PHG/GAVE.
Crohn's disease
Recurrent right pleural effusion status post thoracentesis x 4
Appendectomy
Plan
Respiratory decompensation likely due to a combination of anemia, COPD, and large right pleural effusion-doubt community-acquired pneumonia or aspiration pneumonia
Supplemental oxygen as needed
Nebulizers if needed-currently not bronchospastic
Aspiration precautions
Incentive spirometry
No indication for steroids
Check cultures
Empiric antibiotics started-Rocephin and doxycycline-consider discontinuation and observation off antibiotics from a pulmonary perspective-if antibiotics needed for cirrhosis/ascites we will leave up to GI
Large recurrent right pleural effusion-thoracenteses in the past summarized below
Recommend repeat thoracentesis
Discussed Pleurx catheter with patient-she is reluctant to do anything aggressive-will hold off and continue to discuss intermittently
Gastroenterology following-correspondence reviewed
Follow hemoglobin
Transfuse as needed
PPI and octreotide continues
Consider EGD
DVT prophylaxis-mechanical
Early nutrition-diet per GI
Early mobilization
Reviewed with resident and nursing in addition to primary team
Diagnostic data:
Chest x-ray 01/03/2025-significant right hemithorax opacification secondary to combination of large pleural fluid and atelectasis
Chest x-ray 01/04/25 post thoracentesis--small residual pleural effusion on the right, left lung is clear, no pneumothorax
Thoracentesis 07/09/2024-right sided-1000 mL cloudy yellow pleural fluid
Thoracente-right sided--1058 mL straw-colored pleural fluid
Thoracentesis 12/07/[id number]--1600 mL of clear dark yellow pleural fluid
Thoracentesis 01/04/20253205-[id number]--1600 mL straw-colored pleural fluid
CT chest 10/04/24-large right pleural effusion, severe atelectasis and airspace consolidation right lower lobe and middle lobe, small left pleural effusion, mild centrilobular emphysema, moderate hepatic cirrhosis
Echocardiogram 10/05/24-EF 60-65%, mild mitral regurgitation,
Data Reviewed
-
EKG: Report reviewed by me
Radiology: Image personally visualized and interpreted and Report reviewed by me
CT Scan: Image personally visualized and interpreted and Report reviewed by me
Medical Tests (Nuc Med, Echo etc): Report reviewed by me
Labs: Labs reviewed by me
Old Records: Reviewed
Total Time Spent with Patient (in minutes): 65
--- NOTE | 2025-01-04 12:27 | PTCARENOTE ---
pt back from IR, 1600 ml of fluids taken out and sent to lab. able to transfer form stretcher to bed, family in to visit.
--- NOTE | 2025-01-04 12:34 | CM ---
Reviewed the chart notes and spoke with the patient and spouse at the bedside. The patient resides with her spouse in a one story home with one step to enter. The patient has a cane, shower chair and O2 through [employer]. The patient has had VN in
past, but no SNF. Patient confirmed her pharmacy of choice is [facility] [address] [place]. CM continues to be available to patient/family and is monitoring medical plan for needs at discharge.
Plan: Discharge plans will depend on the patient's progress.
[2025-01-04 12:51] LABS: Body Fluid Second Tech CMB
--- NOTE | 2025-01-04 13:17 | W.PN.HOSP.TC ---
Addendum entered and electronically signed by Mackenzie Savage MD 01/04/25 15:35:
I saw and evaluated the patient independently. I reviewed the resident�s note and agree with findings and plan as documented by Dr. Dalal.
GENERAL: chronically ill appearing female, cachectic in no apparent distress
HEENT: NC/AT--O2 NC
HEART: regular rate and rhythm, +S1, +S2, DALLIA
LUNGS : decreased breath sounds right lung field
ABDOM: soft, nontender, nondistended, + bowel sounds
EXT: no cyanosis, clubbing, or edema
NEUROLOGIC: grossly intact
acute upper gastrointestinal bleed--presumed due to GAVE with possible variceal bleed (had hematemesis 1-2 days ago)--also had BRBPR again could be due to vascular ectasias--clears--trend H&H--s/p 1 unit pRBC --transfuse to keep HGB >7--apprec
GI--no scopes at this time--cont IV PPI, octreotide
PBC compensated cirrhosis--no signs of ascites--cont rocephin for SBP prophylaxis--Continue ursodiol
Anemia--due to acute blood loss from GI bleed--trend H&H
Recurrent right pleural effusion status post multiple thoracenteses--Thoracentesis7/4 1600 mL straw-colored pleural fluid--Pleural fluid analysis pending--apprec pulm--pt declined PleurX
acute on chronic resp failure--due to pleural effusion and anemia--doubt PNA and doubt COPD exacerbation--wean O2 back to baseline--cont IS, nebs if needed--not wheezing--hold on any steroids
Hypothyroid--Continue Synthroid
DVT prophylaxis
CODE STATUS--DNR
Original Note:
Today's Communication/Plan
-
IR for thoracentesis drained 1.6 L
Patient still requiring oxygen
Patient transfused
Assessment / Plan
Assessment / Plan
Ms. Mccarthy is a 79-year-old female with oxygen dependent COPD, primary biliary cirrhosis, esophageal varices status post banding, hypothyroidism, chronic kidney disease with recent admission for upper GI bleed in 10/26 who has recurrent right pleural
effusions with multiple thoracenteses in the past-last one December 2024 who presents with probable recurrent gastrointestinal bleeding and increasing shortness of breath and noted to have a large right pleural effusion pulmonary consulted for shortness
of breath/pleural effusion 01/04/25. The patient states that she has shortness of breath with minimal exertion. She offers no complaints of chest pain, chest congestion, productive cough, pleurisy, abdominal pain, nausea, or focal weakness. Patient
noted with fever on Tuesday and vomiting about 1 1/2 -2 cups red blood. She then persisted with red and black stools that got darker over the week. She was started on Rocephin octreotide and PPI drip. Chest x-ray was positive for right pleural
effusion. Interventional radiology and pulmonology were contacted. Interventional radiology performed thoracentesis took off 1600 mL of straw-colored pleural fluid and sent off fluid for analysis. Pulmonology Discussed Pleurx catheter with
patient-she is reluctant to do anything aggressive-will hold off and continue to discuss intermittently. Patient was found to be anemic with a hemoglobin of 8.3 initially but dropped to 7.4 was consented and transfused.
#Gastrointestinal bleed
# PBC compensated cirrhosis
# GAVE
# Esophageal variceal status post banding
Likely upper GI given history esophageal varices disease
esophageal varices disease although recent EGDs negative
Vomited blood prior to admission
Bright red blood per rectum
Monitor hemoglobin
Transfuse if Hgb less than 8
Patient received transfusion
SBP prophylaxis
PPI drip
Octreotide drip
Rocephin
Continue ursodiol
GI consult
#Anemia
due to acute blood loss
In setting of gastrointestinal bleed
Trend H/H
Continue to monitor
Transfuse as needed hemoglobin less than 8
#Recurrent right pleural effusion status post multiple thoracenteses
Thoracentesis01/04 1600 mL straw-colored pleural fluid
Pleural fluid analysis pending
Pulmonology consult
#COPD without acute exacerbation
# Acute respiratory decompensation
Likely multifactorial in setting of anemia COPD pleural effusion
Pulmonology following appreciate recs
Supplemental oxygen as needed
Nebulizers if needed-currently not bronchospastic
Aspiration precautions
Incentive spirometry
No indication for steroid
#Hypothyroid
Continue Synthroid
DVT prophylaxis
CODE STATUS
DNR
Anticipated Discharge: 24 - 48 hours
Subjective/Interval History
-
Patient was seen at bedside. She is reported having bloody vomit couple days ago before resolved and then she had 2 days of melena. This prompted her to come in as she had bright red blood per rectum. Today she feels a lot better after treatment
and transfusion. Patient does not endorse any shortness of breath chest pain or abdominal pain no more nausea or vomiting. Date of Service: January 04, 2025
Objective Data
-
Labs:
Laboratory Results
01/04/25 01/04/25
05:00 05:16
WBC 7.1
Hgb Cancelled 7.4 L
Hct Cancelled 22.9 L
Plt Count 86 L
Sodium 140
Potassium 4.2
Chloride 115 H
Carbon Dioxide 20 L
BUN 24 H
Creatinine 1.0
Glucose 111 H
Calcium 8.0 L
Total Bilirubin 0.9
AST 36
ALT 19
Alkaline Phosphatase 322 H
Vital Signs:
Vital Signs
Temp Pulse Resp BP Pulse Ox
97.7 F 67 16 104/49 97
01/04/25 12:30 01/04/25 12:30 01/04/25 12:30 01/04/25 12:30 01/04/25 12:30
I&O
07/03/25 07/04/25 07/05/25
06:59 06:59 06:59
Intake Total 250 / 250
Output Total 300 / 300
Balance -300 / -300 250 / 250
Review of Systems
-
History Source: Patient
Constitutional: Reports No Symptoms; Denies Fever
EENT: Reports No Symptoms Reported; Denies Sore Throat or Runny Nose
Respiratory: Reports No Symptoms; Denies Trouble Breathing
Cardiac: Reports No Symptoms; Denies Chest Pain or Palpitations
Abdomen/GI: Reports No Symptoms; Denies Nausea, Vomiting or Diarrhea
Genitourinary: Reports No Symptoms; Denies Dysuria
Neuro: Reports No Symptoms; Denies Dizzy or Headache
Physical Exam
-
General: No Apparent Distress, Appears Chronically Ill and Cachectic
HEENT: Normocephalic, Atraumatic and Oxygen (3L)
Respiratory: Decreased Breath Sounds (in right lung [place])
Cardiac: Regular Rhythm and S1/S2
GI: Soft, Nondistended and Tender (mildly)
Musculoskeletal: No Clubbing, No Cyanosis and No Edema
Skin: Warm and Dry
Neuro: Awake, Alert and Oriented
[2025-01-04 15:00] LABS: Hematocrit 27.9 % (37.0-47.0); Hemoglobin 9.3 g/dL (12.0-16.0)
[2025-01-04] MEDS: TYLENOL 1000 MG PO (16:32)
[2025-01-04] MEDS: STERILE WATER FOR INJECTION 10 ML IV (19:51)
[2025-01-04] MEDS: ROCEPHIN 1000 MG IV (19:51)
[2025-01-04] MEDS: FLUSH (NSS) 2 FLUSH IV (19:55)
[2025-01-04] MEDS: ZYRTEC 5 MG PO (21:07)
[2025-01-04] MEDS: REQUIP 1 MG PO (21:07)
[2025-01-05] MEDS: PROTONIX 100 IV (01:07)
[2025-01-05 02:07] LABS: Hematocrit 26.1 % (37.0-47.0); Hemoglobin 8.7 g/dL (12.0-16.0); Mean Corp Hgb Conc. 33.3 g/dL (33.0-37.0); Mean Corpuscular Volume 89.1 fL (81.0-99.0); Platelet Count 83 10^3/uL (130-400); Red Cell Dist. Width 16.5 % (11.5-14.5)
[2025-01-05 02:20] LABS: Blood Urea Nitrogen 24 mg/dl (7-17); Calcium 7.6 mg/dl (8.4-10.2); Carbon Dioxide 22 mmol/L (22-30); Chloride 116 mmol/L (98-107); Estimated Creatinine Clearance 29 ml/min; Glucose 107 mg/dl (70-99); Magnesium 1.7 mg/dl (1.6-2.3); Potassium 4.1 mmol/L (3.5-5.1); Sodium 141 mmol/L (135-145); eGFR 56.95
--- NOTE | 2025-01-05 02:54 | PTCARENOTE ---
Had to repeat a lab draw for this patient that is a difficult blood draw. Covering provider aware. To repeat the lab draw, the patient's arm was wrapped in a warm blanket and all morning labs were drawn together. Results were obtained. Advised
covering provider. No new orders at this time.
[2025-01-05 03:08] VITALS: BP 112/51
[2025-01-05] MEDS: ZOFRAN 4 MG IV (05:24)
[2025-01-05] MEDS: FLUSH (NSS) 2 FLUSH IV (05:25)
[2025-01-05] MEDS: SYNTHROID PO (05:30)
--- NOTE | 2025-01-05 05:32 | PTCARENOTE ---
Patient very nauseous. She said she 'may throw up a cup and a half of blood'. Emesis container provided. Advised covering provider. Zofran given as ordered.
[2025-01-05 06:00] VITALS: BMI 15.3
[2025-01-05 07:47] VITALS: BP 110/47
[2025-01-05] MEDS: ACTIGALL 300 MG PO (08:31)
[2025-01-05] MEDS: VIBRAMYCIN 100 MG PO (08:31)
[2025-01-05] MEDS: SODIUM BICARBONATE 650 MG PO (08:31)
[2025-01-05] MEDS: SANDOSTATIN 500.6 MCG IV (09:39)
--- NOTE | 2025-01-05 09:42 | W.PN.GI.CBS2 ---
Addendum entered and electronically signed by Margarita St DO 01/05/25 10:03:
The patient was seen and examined by me independently in collaboration with the nurse practitioner.
Past medical history/social history/medications/allergies/family history reviewed.
Lab data and imaging data reviewed.
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 She has had several prior similar
admissions, approximately every 2 months, both locally and in [place], of small volume hematemesis with overall unremarkable EGDs to follow. Her hemoglobin remains stable and she is discharged home, eventually to return a few months later with the
same. She does have a history of varices but on these repeated endoscopic exams, she does not appear to be bleeding from varices.
Admitting labs notable for hemoglobin of 8.3 -->7.4, plt 86, INR 0.93, BUN 27, bili 0.9, AST 44, ALT 22, alk phos 368, albumin 2.9.
She follows outpatient with Dr. Tatum and Dr. Quiroz, recently met with both palliative care and hospice. At this time, she would like to proceed with palliative care, is not quite ready for hospice care. Hemoglobin has remained stable. She reports
having brown stool. Given no evidence of ongoing bleeding and overall goals of care, patient would prefer not to proceed with endoscopy which I feel is reasonable. She is going to try to eat some breakfast, if able to tolerate she would very much
like to go home and from a GI perspective I think that is appropriate. She has scheduled outpatient follow-up with both Dr. Quiroz and Dr. Tatum.
Plan:
-Transition to PPI BID
-stop octreotide
-continue ursodiol
-recommend completing 7 day course of abx
-s/p IR thoracentesis, pulm offered pleurx catheter, patient declined
-okay for d/c today from GI perspective if tolerates diet
Original Note:
Today's Communication / Plan
-
etiology of bleeding related to PHG,GAVE, EV vs other-
pt has had discussion with primary GI Dr. Tatum about progression of disease and comfort/hospice
she is not quit ready for hospice but admits to focus on comfort and less aggressive care-- she has completed multiple EGD's in past year and wishes to hold
she states brown stool this and hbg stable 8.7-- cont to hold EGD as no signs of aggressive bleeding
cont regular diet as tolerated
still with some abdominal pain and nausea but just had BM when seen
monitor symptoms over AM to see if pt would be stable for discharge today from GI standpoint
cont Ursodiol
trend hbg
transition PPI to BID
will stop octreotide
will review with Dr. St for abx course
s/p pulm eval-- discussed Pleurx but pt wishes to hold for now
Pt due follow up withDr. Quiroz nexgt week(pt considering cancelling as forcus on comfort vs discussed to see if she can switch to telehealth) and due to see Dr. Tatum 01/15 at noon
Assessment / Plan
-
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
Chronic hypotension, presents with several prior admissions with UGI bleed and now recurrent hematemesis and bright red blood per rectum. Pt has been seen by in [place] as well as [facility] and Dr. Quiroz in past and due follow up next
week with Dr. Quiroz. Pt also currently follows with Dr. Tatum. On admission hbg 8.3 with drop to 7.4, platelets down to 86,000, INR 0.93, BUN 27, bili 0.9, AST 44, ALT 22, alk phos 368, albumin 2.9.
EGD: 06/18/24 (Dr. Ashley) grade 1 small EV non banding, nodule in esophagus at GE junction without bleeding bilious gastric fluid, portal HTN gastropathy otherwise normal no specimens collected
EGD:07/06/2024 (Dr. Tatum) Grade II esophageal varices. Completely eradicated., banded x 3, portal HTN gastropathy, multiple bleeding angiodysplastic lesions s/p APC
EGD 09/2024 first admit ([facility]): Per patient and no varices. No interventions performed. Was transfused 1 unit packed red blood cells- record requested not received
EGD 09/2024 second admit ([facility]): Per patient and no varices. No interventions performed. Was transfused 1 unit packed red blood cells.- records requested not received
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
squamocolumnar mucosa moderate acute and chronic inflammation
colonoscopy 1 year and in past incomplete pt unsure of details done in [place]
-hematemesis 12/31
-red and black stools 01/01-01/03
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
-Decompensated Cirrhosis 2/2 PBC with varices
-hx GAVE/PHG/EV with prior banding
-anemia
-acute heart failure with preserved EF
-hx incomplete colonoscopy
other med problems:
COPD
Hypothyroidism
CKD III
DNR
PLAN:
etiology of bleeding related to PHG,GAVE, EV vs other-
pt has had discussion with primary GI Dr. Tatum about progression of disease and comfort/hospice
she is not quit ready for hospice but admits to focus on comfort and less aggressive care-- she has completed multiple EGD's in past year and wishes to hold
she states brown stool this and hbg stable 8.7-- cont to hold EGD as no signs of aggressive bleeding
cont regular diet as tolerated
still with some abdominal pain and nausea but just had BM when seen
monitor symptoms over AM to see if pt would be stable for discharge today from GI standpoint
cont Ursodiol
trend hbg
transition PPI to BID
will stop octreotide
will review with Dr. St for abx course
s/p pulm eval-- discussed Pleurx but pt wishes to hold for now
Pt due follow up withDr. Quiroz nexgt week(pt considering cancelling as forcus on comfort vs discussed to see if she can switch to telehealth) and due to see Dr. Tatum 01/15 at noon
Subjective
Subjective
Date of Service: January 05, 2025
on regular diet-- just passed brown stool this am, still with some abdominal pain and nausea and asking about discharge
Objective
Data Reviewed
Laboratory Data:
Laboratory Results
01/05/25 01:50
01/05/25 01:49
Laboratory Results
PT 12.9 Sec (11.4-14.6) 01/03/25 16:24
INR 0.93 01/03/25 16:24
APTT 31.7 Sec (23.4-35.0) 01/03/25 16:24
Magnesium 1.7 mg/dl (1.6-2.3) 01/05/25 01:49
Total Bilirubin 0.9 mg/dl (0.2-1.3) 01/04/25 05:16
AST 36 U/L (14-36) 01/04/25 05:16
ALT 19 U/L (0-35) 01/04/25 05:16
Alkaline Phosphatase 322 U/L (38-126) H 01/04/25 05:16
Vital Signs and I&O:
Vital Signs
Temp Pulse Resp BP Pulse Ox
98.3 F 69 18 110/47 98
01/05/25 07:47 01/05/25 07:47 01/05/25 03:08 01/05/25 07:47 01/05/25 07:47
I&O
01/04/25 01/05/25 01/06/25
06:59 06:59 06:59
Intake Total 1270 / 1270
Output Total 300 / 300
Balance -300 / -300 1270 / 1270
Physical Exam
Physical Exam
HEENT: Anicteric, Moist mucous membranes and Other (thin appearing)
Cardiology: Normal Sinus Rhythm
Pulmonary: Other (decreased right base, still remains on O2)
GI: Soft, Non Distended and Tender (mild diffuse )
Extremities: No Edema
Neuro: Non Focal
--- NOTE | 2025-01-05 10:48 | W.PN.PUL.V3 ---
Today's Communication / Plan
-
Much improved after thoracentesis
Would like to hold off on Pleurx catheter for now-would consider if more rapid reaccumulation
Consider discontinuation of antibiotics from a pulmonary perspective
Transition to PPI orally
Transfuse as needed
Increase activity
Assessment
-
79-year-old female with underlying oxygen dependent COPD, primary biliary cirrhosis, esophageal varices status post banding, hypothyroidism, chronic kidney disease with recent admission for upper GI bleed who has recurrent right pleural effusions
with multiple thoracenteses in the past-last one December 2024-who presents with probable recurrent gastrointestinal bleeding and increasing shortness of breath and noted to have a large right pleural effusion-pulmonary consulted for shortness of
breath/pleural effusion 01/04/25.
Gastrointestinal bleed
Anemia due to acute blood loss
Recurrent right pleural effusion status post multiple thoracenteses
Thoracentesis01/04/25 - minus-1600 mL straw-colored fluid
COPD without acute exacerbation
Mild hyperglycemia
Hypoalbuminemia
DNR
Conditions present prior to admission:
COPD.
Hypothyroid.
Chronic kidney disease.
Primary biliary cirrhosis with varices and banding.
PHG/GAVE.
Crohn's disease
Recurrent right pleural effusion status post thoracentesis x 4
Appendectomy
Plan
Respiratory decompensation likely due to a combination of anemia, COPD, and large right pleural effusion-doubt community-acquired pneumonia or aspiration pneumonia
Supplemental oxygen as needed-currently on 3 L - 90% saturation
Nebulizers if needed-currently not bronchospastic
Aspiration precautions
Incentive spirometry encouraged
No indication for steroids
Cultures reviewed
Influenza negative
Pleural fluid no growth
Empiric antibiotics started-Rocephin and doxycycline-consider discontinuation and observation off antibiotics from a pulmonary perspective-if antibiotics needed for cirrhosis/ascites we will leave up to GI
Large recurrent right pleural effusion-thoracenteses in the past summarized below
Thoracentesis on the right 01/04/2546-gnmna-1569 mL straw-colored fluid, cultures negative thus far
I explained that recently she is required significant fluid removal monthly-she still wants to hold off on catheter placement
Discussed Pleurx catheter with patient-she is reluctant to do anything aggressive-will hold off and continue to discuss intermittently-states she would be willing if fluid reaccumulated more rapidly than once a month
Gastroenterology following-correspondence reviewed
Follow hemoglobin
Transfuse as needed
PPI and octreotide continues- the latter will be discontinued today
EGD considered
Reports being not ready for hospice yet
DVT prophylaxis-mechanical
Early nutrition-diet per GI
Early mobilization
Reviewed with resident and nursing in addition to primary team
Diagnostic data:
Chest x-ray 01/03/2025-significant right hemithorax opacification secondary to combination of large pleural fluid and atelectasis
Chest x-ray 01/04/25 post thoracentesis--small residual pleural effusion on the right, left lung is clear, no pneumothorax
Thoracentesis 07/09/2024-right sided-1000 mL cloudy yellow pleural fluid
Thoracente-right sided--1058 mL straw-colored pleural fluid
Thoracentesis 12/07/20245409-[id number]--1600 mL of clear dark yellow pleural fluid
Thoracentesis 01/04/20257278-[id number]-zfsid--1600 mL straw-colored pleural fluid
CT chest 10/04/24-large right pleural effusion, severe atelectasis and airspace consolidation right lower lobe and middle lobe, small left pleural effusion, mild centrilobular emphysema, moderate hepatic cirrhosis
Echocardiogram 10/05/24-EF 60-65%, mild mitral regurgitation,
Subjective Data
-
Date of Service:
Date of Service: January 05, 2025
Chief Complaint: Pulmonary Follow Up and Dyspnea Follow Up
Subjective:
feels better after thoracentesis, no complaints of shortness of breath, chest pain or abdominal pain
Review of Systems
General: Other ( Per HPI)
Objective Data
Data Reviewed
Vital Signs / I&O:
Vital Signs
Temp Pulse Resp BP Pulse Ox
98.3 F 69 18 110/47 98
01/05/25 07:47 01/05/25 07:47 01/05/25 03:08 01/05/25 07:47 01/05/25 07:47
Intake and Output
01/04/25 01/05/25 01/06/25
06:59 06:59 06:59
Intake Total 1270 / 1270
Output Total 300 / 300
Balance -300 / -300 1270 / 1270
SaO2: 98
Nasal Cannula flow liters per minute: 3
Physical Exam
General: Respiratory Distress (n) and Comfortable
HEENT: Normocephalic, Anicteric and Moist Mucous Membranes
Cardiovascular: Murmur
Respiratory: Wheeze (n), Crackles ( right basilar), Rhonchi (n), Non-Labored Respirations, Accessory Resp Muscle Use (n) and Stridor (n)
GI: Soft, Non Distended and Non Tender
Neurology: Awake, Alert and No Motor Deficits
Skin: Warm, Good Color, Cyanosis (n) and Jaundice (n)
Labs/Micro/Reports
Lab Data
01/05/25 01:50
01/05/25 01:49
Microbiology
01/04/25 11:47 Pleural Fluid Body Fluid Culture - Preliminary
No Growth After 18-24 Hours
01/04/25 11:47 Pleural Fluid Gram Stain - Preliminary
01/03/25 18:55 Nasal Swab Influenza Types A & B (MIKE) - Final
Negative for Influenza A & B, NAAT
Negative results must be combined with clinical observations
and patient history.
Nucleic Acid Amplification test (NAAT)performed on the
[employer] platform.
--- NOTE | 2025-01-05 11:00 | W.PN.HOSP.TC ---
Addendum entered and electronically signed by Mackenzie Savage MD 01/05/25 13:54:
I saw and evaluated the patient independently. I reviewed the resident�s note and agree with findings and plan as documented by Dr. Dalal.
GENERAL: chronically ill appearing female, cachectic in no apparent distress
HEENT: NC/AT--O2 NC
HEART: regular rate and rhythm, +S1, +S2, DALILA
LUNGS: improved breath sounds right lung field
ABDOM: soft, nontender, nondistended, + bowel sounds
EXT: no cyanosis, clubbing, or edema
NEUROLOGIC: grossly intact
acute upper gastrointestinal bleed--presumed due to GAVE with possible variceal bleed (had hematemesis 1-2 days ago)--also had BRBPR again could be due to vascular ectasias--tolerated solid food---s/p 1 unit pRBC --transfuse to keep HGB >7--apprec
GI--no scopes at this time--OK for D/C
PBC compensated cirrhosis--no signs of ascites--on rocephin for SBP prophylaxis, GI rec completing 7 day course--Continue ursodiol
Anemia--due to acute blood loss from GI bleed--trend H&H
Recurrent right pleural effusion status post multiple thoracenteses--Thoracentesis/ 1600 mL straw-colored pleural fluid--Pleural fluid analysis shows transudate--apprec pulm--pt declined PleurX
acute on chronic resp failure--due to pleural effusion and anemia--doubt PNA and doubt COPD exacerbation--wean O2 back to baseline--cont IS, nebs if needed--not wheezing--hold on any steroids
Hypothyroid--Continue Synthroid
DVT prophylaxis
CODE STATUS--DNR
Original Note:
Today's Communication/Plan
-
patient breathing better, at home O2
medically stable for discharge
Assessment / Plan
Assessment / Plan
Ms. Mccarthy is a 79-year-old female with oxygen dependent 3L COPD, primary biliary cirrhosis, esophageal varices status post banding, GAVE, hypothyroidism, chronic kidney disease stage 3 with recent admission for upper GI bleed in 10/26 who has
recurrent right pleural effusions with multiple thoracenteses in the past-last one December 2024 who presents with probable recurrent gastrointestinal bleeding and increasing shortness of breath and noted to have a large right pleural effusion pulmonary
consulted for shortness of breath/pleural effusion 01/04/25. The patient states that she has shortness of breath with minimal exertion. She offers no complaints of chest pain, chest congestion, productive cough, pleurisy, abdominal pain, nausea, or
focal weakness. Patient noted with fever on Tuesday and vomiting about 1 1/2 -2 cups red blood. She then persisted with red and black stools that got darker over the week. She was started on Rocephin octreotide and PPI drip. Chest x-ray was
positive for right pleural effusion. Interventional radiology and pulmonology were contacted. Interventional radiology performed thoracentesis took off 1600 mL of straw-colored pleural fluid and sent off fluid for analysis. Pulmonology Discussed
Pleurx catheter with patient-she is reluctant to do anything aggressive-will hold off and continue to discuss intermittently. Patient was found to be anemic with a hemoglobin of 8.3 initially but dropped to 7.4 was consented and transfused.
Patients Hbg improved to 9.3 and remained stable overnight to 8.7.
#Gastrointestinal bleed
# PBC compensated cirrhosis
# GAVE
# Esophageal variceal status post banding
Likely upper GI given history esophageal varices disease
esophageal varices disease although recent EGDs negative
Vomited blood prior to admission
Bright red blood per rectum
Monitor hemoglobin
Transfuse if Hgb less than 8
Patient received transfusion
SBP prophylaxis
PPI drip
Octreotide drip
Rocephin
Continue ursodiol
GI consult 01/05
Transition to PPI BID
stop octreotide
continue ursodiol
recommend completing 7 day course of abx
s/p IR thoracentesis, pulm offered pleurx catheter, patient declined
okay for d/c today from GI perspective if tolerates diet
#Anemia
due to acute blood loss
In setting of gastrointestinal bleed
Trend H/H, follow-up outpatient
Continue to monitor 7.5-hccxitrdupb-7.3--8.7
Transfuse as needed hemoglobin less than 8
#Recurrent right pleural effusion status post multiple thoracenteses
Thoracentesis7/4 1600 mL straw-colored pleural fluid
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
Pulmonology consult recs below
#nausea
ppi
zofran prn
#COPD without acute exacerbation
# Acute respiratory decompensation
#Chronic hypoxemic respiratory failure
Likely multifactorial in setting of anemia COPD pleural effusion
Pulmonology following appreciate recs
Supplemental oxygen as needed
Nebulizers if needed-currently not bronchospastic
Aspiration precautions
Incentive spirometry
No indication for steroid
pt declined PleurX
At home baseline 02, 3L
#Hypothyroid
Continue Synthroid
#CKD3
Cr 1.0 during this admission
Ctm
DVT prophylaxis
CODE STATUS
DNR
Anticipated Discharge: Today
Subjective/Interval History
-
Patient was seen at bedside. She feels better aftert the IR procedure and transfusion. Hgb levels remained stable overnight. She did have nausea overnight that resolved with Zofran. She still complains of right abdominal pain which is a chronic
problem for her. She was able to eat breakfast and medically stable. Date of Service: January 05, 2025
Objective Data
-
Labs:
Laboratory Results
01/05/25 01/05/25 01/05/25
00:45 01:49 01:50
WBC 4.8
Hgb Cancelled Cancelled 8.7 L
Hct Cancelled Cancelled 26.1 L
Plt Count 83 L
Sodium 141
Potassium 4.1
Chloride 116 H
Carbon Dioxide 22
BUN 24 H
Creatinine 1.0
Glucose 107 H
Calcium 7.6 L
Vital Signs:
Vital Signs
Temp Pulse Resp BP Pulse Ox
98.3 F 69 18 110/47 98
01/05/25 07:47 01/05/25 07:47 01/05/25 03:08 01/05/25 07:47 01/05/25 10:54
I&O
01/04/25 01/05/25 01/06/25
06:59 06:59 06:59
Intake Total 1270 / 1270
Output Total 300 / 300
Balance -300 / -300 1270 / 1270
Review of Systems
-
History Source: Patient
Constitutional: Reports No Symptoms; Denies Fever or Chills
EENT: Reports No Symptoms Reported; Denies Sore Throat
Respiratory: Reports No Symptoms; Denies Cough or Wheezing
Cardiac: Reports No Symptoms; Denies Chest Pain, Diaphoresis or Palpitations
Abdomen/GI: Reports Abdominal Pain, Nausea and Anorexia; Denies Vomiting, Diarrhea, Bloody Stools, Black Stools or Hematemesis
Genitourinary: Reports No Symptoms; Denies Dysuria
Musculoskeletal: Reports No Symptoms
Neuro: Reports No Symptoms
Physical Exam
-
General: No Apparent Distress, Comfortable, Appears Chronically Ill and Cachectic
HEENT: Normocephalic and Atraumatic
Respiratory: Decreased Breath Sounds (over right lower lobe area); Negative Wheezes or Crackles
Cardiac: Regular Rhythm and S1/S2; Negative Murmur
GI: Soft, Nontender, Nondistended and Normal Bowel Sounds
Musculoskeletal: No Clubbing, No Cyanosis and No Edema
Skin: Warm and Dry
Neuro: Awake, Alert and Oriented
Psych: Calm
[2025-01-05 11:02] VITALS: BP 116/56
--- NOTE | 2025-01-05 15:06 | W.DCSUMMARY ---
Addendum entered and electronically signed by Mackenzie Savage MD 01/05/25 15:42:
Read, reviewed, and agree. See same day progress note for additional details. Time spent coordinating care, DC planning, review of DC plan of care with resident, transition of care, review of records in EMR, med rec, consults, notes, d/w
consultants, nursing, family, and CM = 35 minutes
Original Note:
Discharge Summary
Discharge Data
Date of Admission: 01/03/25
Date of Discharge: 01/05/25
-
Pending Results: No
Hospital Course
Discharging Physician : Dr. Hussein Dalal
Disposition : Home
Primary care physician : Dr. Nelson Narayan
Principal Discharge diagnosis :
GI bleed, recurrent right pleural effusion
Chronic Discharge diagnosis :
Cirrhosis due to PBC GAVE
Esophageal varices status post banding
Hypothyroidism
Anemia
COPD
Chronic respiratory failure
Recurrent pleural effusion
CKD stage III
Hospital Course :
Ms. Mccarthy is a 79-year-old female with oxygen dependent 3L COPD, primary biliary cirrhosis, esophageal varices status post banding, GAVE, hypothyroidism, chronic kidney disease stage 3 with recent admission for upper GI bleed in 10/26 who has
recurrent right pleural effusions with multiple thoracenteses in the past-last one December 2024 who presents with probable recurrent gastrointestinal bleeding and increasing shortness of breath and noted to have a large right pleural effusion.
pulmonary consulted for shortness of breath/pleural effusion 01/04/25. The patient states that she has shortness of breath with minimal exertion. She offers no complaints of chest pain, chest congestion, productive cough, pleurisy, abdominal pain,
nausea, or focal weakness. Patient noted with fever on Tuesday and vomiting about 1 1/2 -2 cups red blood. She then persisted with red and black stools that got darker over the week. She was started on Rocephin octreotide and PPI drip. Chest x-ray
was positive for right pleural effusion. Interventional radiology and pulmonology were contacted. Interventional radiology performed thoracentesis took off 1600 mL of straw-colored pleural fluid and sent off fluid for analysis. Analysis showed
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 Pulmonology Discussed Pleurx catheter with patient-she is reluctant to do anything aggressive-will hold off and continue to discuss intermittently. Patient was found to be anemic with a hemoglobin
of 8.3 initially but dropped to 7.4 was consented and transfused. Patients Hbg improved to 9.3 and remained stable overnight to 8.7. Resumed p.o. diet and tolerated it well. Patient medically stable for discharge.
Important imaging findings :
Chest x-ray 01/04
IMPRESSION:
Status post right thoracentesis. No pneumothorax.
Chest x-ray 01/03
IMPRESSION:
Significant right hemithorax opacification appears to be secondary to a combination of large pleural fluid and atelectasis.
Procedure findings :
Thoracentesis 01/04
IMPRESSION:
Successful ultrasound-guided RIGHT thoracentesis, yielding 1600 mL of straw colored pleural fluid.
ECG 01/03
NORMAL SINUS RHYTHM
LEFT AXIS DEVIATION
ANTEROSEPTAL INFARCT (CITED ON OR BEFORE 18-JUN-2024)
ABNORMAL ECG
WHEN COMPARED WITH ECG OF 05-JUL-2024 23:36,
NO SIGNIFICANT CHANGE WAS FOUND
Discharge Plan
-
Patient Disposition: Home (Routine Discharge)
Discharge Diagnosis/Procedures: Upper GI bleed, Pleural effusion, anemia, acute on chronic hypoxemic respiratory failure
Condition: Good
Diet: As tolerated
Activity: As tolerated
Driving Restrictions: As prior to admission
Bathing Restrictions: None
Referrals:
Nelson Narayan DO [Family Provider, [facility]] - in less than 1 week
Prescriptions:
New
ondansetron 8 mg tablet,disintegrating
4 mg PO Q8H PRN (Reason: nausea and vomiting) Qty: 20 0RF
cephalexin 500 mg capsule
500 mg PO Q12H Qty: 8 0RF
Continued
ropinirole 1 mg Tablet
1 mg PO HS
therapeutic multivitamin Tablet
1 tab PO DAILY
tramadol 50 mg Tablet
50 mg PO Q8HPRN PRN (Reason: moderate pains)
levothyroxine [Synthroid] 75 mcg Tablet
75 mcg PO DAILY
Refresh Optive 0.5-0.9 % Drops
1 drp BOTH EYES TIDPRN PRN (Reason: dry eyes)
levocetirizine 5 mg Tablet
5 mg PO HS
calcium carbonate [Calcium 600] 600 mg calcium (1,500 mg) Tablet
600 mg PO DAILY
ursodiol 300 mg Capsule
300 mg PO TID
cholecalciferol (vitamin D3) [Vitamin D3] 25 mcg (1,000 unit) Tablet
25 mcg PO DAILY
pantoprazole 40 mg tablet,delayed release (DR/EC)
40 mg PO BID
sodium bicarbonate 650 mg Tablet
650 mg PO DAILY Qty: 30 0RF
Iron Supplement
1 tab PO Q48H
Discontinued
acetaminophen [Tylenol Extra Strength] 500 mg Tablet
1,000 mg PO DAILYPRN PRN (Reason: mild pain/fever)
Discharge Orders:
Discharge Patient (As Directed); Ordered 01/05/25
Ordered By: Lissette Dalal
Discharge Date and Time
Discharge Date/Time: 01/05/25 14:11
Print Language: AFGHAN
== END 2025-01-05 14:11 | disposition home or self-care (01) | DRG 377 ==
LOC: 2 NORTH 19:08
PROVIDERS: Radiology Diagnostic Radiology; Student in an Organized Health Care Education/Training Program; ADMITTING PHYSICIAN Student in an Organized Health Care Education/Training Program; ATTENDING PHYSICIAN Internal Medicine; CONSULT PHYSICIAN Internal Medicine Critical Care Medicine; EMERGENCY PHYSICIAN Emergency Medicine; FAMILY PHYSICIAN Family Medicine; OTHER PHYSICIAN Internal Medicine
PROC: 30233N1 Transfusion of Nonautologous Red Blood Cells into Peripheral Vein, Percutaneous Approach (ICD-10-PCS; 2025-01-04)
PROC: 0W993ZZ Drainage of Right Pleural Cavity, Percutaneous Approach (ICD-10-PCS; 2025-01-04)
DX: K31.811 Angiodysplasia of stomach and duodenum with bleeding (principal); I50.31 Acute diastolic (congestive) heart failure; J96.20 Acute and chronic respiratory failure, unspecified whether with hypoxia or hypercapnia; J96.21 Acute and chronic respiratory failure with hypoxia; I85.11 Secondary esophageal varices with bleeding; J90 Pleural effusion, not elsewhere classified; D62 Acute posthemorrhagic anemia; Z66 Do not resuscitate; E03.9 Hypothyroidism, unspecified; N18.30 Chronic kidney disease, stage 3 unspecified; K74.3 Primary biliary cirrhosis
CPT/HCPCS: 32555; 71045; 71046; 80048; 80053; 82945; 83615; 83735; 83880; 83986; 84157; 84478; 85014; 85018; 85025; 85027; 85610; 85730; 86850; 86900; 86901; 86920; 87015; 87070; 87205; 87502; 87811; 88112; 88305; 89051; 93005; 94760; 96374; 96375; 96376; 99285; P9016

== ENCOUNTER 2025-01-15 14:12 | Emergency (ER) | payer OTHER, SELFPAY ==
[2025-01-15 14:17] VITALS: BP 115/50
[2025-01-15 14:50] LABS: Hematocrit 33.0 % (37.0-47.0); Hemoglobin 10.5 g/dL (12.0-16.0); Mean Corp Hgb Conc. 31.8 g/dL (33.0-37.0); Mean Corpuscular Volume 91.7 fL (81.0-99.0); Nucleated Red Blood Cells % 0 %; Platelet Count 125 10^3/uL (130-400); Red Cell Dist. Width 16.1 % (11.5-14.5)
[2025-01-15 15:10] LABS: ALT (SGPT) 21 U/L (0-35); AST (SGOT) 42 U/L (14-36); Albumin 3.1 g/dl (3.5-5.0); Alkaline Phosphatase 482 U/L (38-126); Blood Urea Nitrogen 17 mg/dl (7-17); Calcium 8.8 mg/dl (8.4-10.2); Carbon Dioxide 25 mmol/L (22-30); Chloride 113 mmol/L (98-107); Glucose 120 mg/dl (70-99); Potassium 4.3 mmol/L (3.5-5.1); Sodium 144 mmol/L (135-145); Total Protein 7.1 g/dl (6.3-8.2); eGFR > 60.00
[2025-01-15 15:23] LABS: Troponin I < 0.012 ng/ml
[2025-01-15 16:01] VITALS: BP 95/51
[2025-01-15 16:11] VITALS: BMI 16.4
[2025-01-15 16:53] VITALS: BP 108/45
[2025-01-15 17:13] VITALS: BP 104/74
--- NOTE | 2025-01-15 17:29 | ED.GENMED ---
History of Present Illness
General
Chief Complaint: Breathing Problem
Source: patient
Exam Limitations: none
Time Seen by Provider: 01/15/25 15:45
Nursing documentation reviewed up to this point in time: agreed with
History of Present Illness
History of Present Illness:
see MDM
Past History
Past History
ED Past Medical History: Hypothyroidism and Other (Primary biliary cirrhosis, GI bleed, Crohn's disease)
Social History
Tobacco: Non-smoker
Alcohol: None
Drug: None
Personal:
Living: with family
Review of Systems
Review of Systems
Allergies reviewed?: Yes
All Other Systems: Not applicable
Phy Exam
Physical Exam
Physical Exam:
GENERAL: Alert , in no apparent distress
EYE: pupils equal and reactive
NECK: Supple
ENT: o/p clr, mmm.
CARDIAC: Regular rate and rhythm .
LUNGS: diminished BS on R
no wheezxing
no tachypnea on 4L
comfortable
ABDOMEN: Soft,mild tenderness RUQ no r/g, no cvat, normal bowel sounds
no appreciated ascites
NEUROLOGICAL: Alert and oriented, no focal neuro deficits
SKIN: Warm and dry, skin intact.
MUSCULOSKELETAL: No edema, well perfused. neg robb's sign
PSYCH: Normal and appropriate interaction.
Scores
Heart Failure Risk
Heart Failure Risk Score: Not Applicable
Course
Orders/Labs/Results
Orders:
Orders
01/15/25 14:16
Electrocardiogram (*1) Urgent
Reason for Study: Other
Other Reason for Exam: Respiratory Distress
Cardiac Monitoring- Treatment ONCE
EKG- Treatment ONCE
CR Chest - 2 Views Urgent
Comment:
Reason For Exam: respiratory distress
O2 Therapy [RESP] Urgent
Titrate/Wean O2 to maintain O2 sat greater than (%): 93
Special Instructions: TO MAINTAIN CONTINUOUS O2 SATS >/= 93%
Pulse Ox/cont/shift [RESP] Urgent
Quantity: 1
Special Instructions: continuous pulse ox
01/15/25 14:33
Complete Blood Count/With Diff Urgent
Comprehensive Metabolic Panel Urgent
NT-proBNP Urgent
Troponin I Urgent
01/15/25 16:02
Consult Interventional Radiology [IRAD CONSULT] Urgent
Consulting Provider: Jose Juan Lino
Was physician already notified: Yes
Procedure being ordered, including laterality if applicable: thoracentesis
Acknowledgement that appropriate orders are entered: Yes
01/15/25 16:48
CXR [CR Chest Portable - 1 View] Urgent
Comment:
Reason For Exam: s/p right thoracentesis
Reason Study Needs to be Portable: Unable to Transport
Abnormal Lab Results
01/15/25
14:33
RBC 3.60 L 10^6/uL
(4.20-5.40)
Hgb 10.5 L g/dL
(12.0-16.0)
Hct 33.0 L %
(37.0-47.0)
MCHC 31.8 L g/dL
(33.0-37.0)
RDW 16.1 H %
(11.5-14.5)
Plt Count 125 L 10^3/uL
(130-400)
MPV 11.1 H fL
(7.4-10.4)
Absolute Lymphs (auto) 0.7 L 10^3/uL
(1.2-3.4)
Lymphocytes % 14.9 L %
(20.5-51.1)
Chloride 113 H mmol/L
(98-107)
Glucose 120 H mg/dl
(70-99)
AST 42 H U/L
(14-36)
Alkaline Phosphatase 482 H U/L
(38-126)
Albumin 3.1 L g/dl
(3.5-5.0)
01/15/25 14:33
01/15/25 14:33
Vital Signs
Initial and Last Documented VS:
Initial Vital Signs
Temp Pulse Resp BP Pulse Ox
36.6 C 71 20 115/50 93
01/15/25 14:17 01/15/25 14:17 01/15/25 14:17 01/15/25 14:17 01/15/25 14:17
Last Documented Vital Signs
Temp Pulse Resp BP Pulse Ox
36.6 C 65 21 104/74 100
01/15/25 14:17 01/15/25 17:30 01/15/25 17:30 01/15/25 17:13 01/15/25 17:34
MDM/Problems Addressed
Differential Diagnosis Includes:
see MDM
MDM/Problems Addressed:
Note:
CHIEF COMPLAINT(S)
- High fluid accumulation requiring drainage.
HISTORY OF PRESENT ILLNESS
The patient, a female with a history of liver disease, primary sclerosing cir, presents with recurrent fluid accumulation in her R lung that previously required drainage. She reports that the frequency of required drainage has increased from every
two months to every couple of weeks. Over the last week, she experienced a significant worsening of symptoms with exertional dyspnea with minimal activity. She is normally on oxygen at two liters, but is currently using three liters. Walking from
one room to another at home has become difficult, which is a recent development over the last couple of days. The patient reports no symptoms of gastrointestinal bleeding such as vomiting or black stool,
The patient has pain in the lower abdomen, but denies any recent trauma, fever, or vomiting. She has not had previous abdominal fluid drainage, although a liver ultrasound is scheduled. She denies the use of blood thinners.
The patient reports living with someone and has a past medical encounter for a gastrointestinal bleed, which she states has been resolved. No trauma reported.
PHYSICAL EXAM
- Nursing notes reviewed and vital signs reviewed.
- The patient reports abdominal pain and difficulty breathing, currently managed with increased oxygen.
diminished BS on R
mild RUQ tendneress
no ascites
PROBLEM LIST
- Acute: Recurrent high fluid accumulation, likely related to liver disease, requiring increased frequency of drainage.
PLAN
- Order imaging studies of the abdomen to assess fluid levels and determine appropriate intervention.
- Consult with the attending physician, Dr. Lino, IR who knows her; will consult for thoracentesis
DIFFERENTIAL DIAGNOSIS
The Differential Diagnosis includes, in no particular order and is not limited to:
- Ascites due to liver cirrhosis
- Congestive heart failure
- Nephrotic syndrome
- Obstructive uropathy
- Protein-losing enteropathy
- Peritoneal carcinomatosis
- Tuberculous peritonitis
- Pancreatic ascites
- Pseudomyxoma peritonei
- Hypoalbuminemia due to other causes
CARE-UPDATE
01/15/25 - 17:26
The patient is experiencing mild abdominal discomfort, which persists despite recent thoracentesis. Liver function tests show slightly elevated levels, raising consideration for potential gallstones, gallbladder disease, or infection. Although an
abdominal ultrasound is suggested to rule out gallstones or common bile duct obstructions, it was agreed that the patient would coordinate this with her primary care or GI specialist, specifically mentioning contacting Dr. Bullock or Dr. Juarez if
pain persists advising the patient to return to the ER if symptoms worsen, especially due to her history of liver issues and gastrointestinal risks. The patient is currently on three liters o2 and the option to reduce to two liters was discussed,
pending her preference. Physician reminded the patient to monitor for fever or vomiting, given her underlying conditions.
*Pulse Oximetry
SaO2: 100
Oxygen Mode of Delivery: Room air
Patient hypoxic: no (100)
*Critical Care Note
Total Time (30-74mins, 75-104mins- exclusive of procedures): Not Applicable
ED Attending Note
-
Portions of this chart may have been created with voice recognition software.� Occasional wrong word or��sound alike� substitutions may have occurred due to the inherent limitations of voice recognition software.
Discharge Plan
Departure
Patient Disposition: Home (Routine Discharge)
Date of Disposition: 01/15/25
Time of Disposition: 17:32
Patient with high blood pressure during this ER visit?: No
Condition: Fair
Covid-19: Not Applicable
Discharge Problem:
Pleural effusion associated with hepatic disorder, S/P thoracentesis, Abdominal pain
Instructions: Pleural effusion - Discharge instructions, Thoracentesis
Prescriptions:
No Action
ropinirole 1 mg Tablet
1 mg PO HS
therapeutic multivitamin Tablet
1 tab PO DAILY
tramadol 50 mg Tablet
50 mg PO Q8HPRN PRN (Reason: moderate pains)
levothyroxine [Synthroid] 75 mcg Tablet
75 mcg PO DAILY
Refresh Optive 0.5-0.9 % Drops
1 drp BOTH EYES TIDPRN PRN (Reason: dry eyes)
levocetirizine 5 mg Tablet
5 mg PO HS
calcium carbonate [Calcium 600] 600 mg calcium (1,500 mg) Tablet
600 mg PO DAILY
ursodiol 300 mg Capsule
300 mg PO TID
cholecalciferol (vitamin D3) [Vitamin D3] 25 mcg (1,000 unit) Tablet
25 mcg PO DAILY
pantoprazole 40 mg tablet,delayed release (DR/EC)
40 mg PO BID
sodium bicarbonate 650 mg Tablet
650 mg PO DAILY Qty: 30 0RF
Iron Supplement
1 tab PO Q48H
ondansetron 8 mg tablet,disintegrating
4 mg PO Q8H PRN (Reason: nausea and vomiting) Qty: 20 0RF
cephalexin 500 mg capsule
500 mg PO Q12H Qty: 8 0RF
Referrals:
Nelson Narayan DO [Family Provider, Family Practice] - Follow up in 2-3 days
Activity Restrictions/Additional Instructions:
You had nearly 2 L drained from your right lung. Your oxygen level is improved and you are comfortable. You did have some discomfort in your belly and I offered you an ultrasound which you declined at this time. Have a low threshold for returning
especially for fever, worsening pain, vomiting, confusion, weakness etc. Otherwise to follow-up with your GI doctor.
Interventions
Interventions:
*Risk Screen - Suicide Last Done: 01/15/25 14:17
*General Assessment Last Done: 01/15/25 17:22
*Neglect/Abuse Screening Last Done: 01/15/25 14:17
*ED- Fall Risk Assessment Last Done: 01/15/25 17:22
*ED COVID-19 Vaccine History Last Done: 01/15/25 17:22
*Nursing Disposition Last Done: 01/15/25 18:36
ED- Cardiac Assessment Last Done: 01/15/25 17:22
ED- Pulmonary Assessment Last Done: 01/15/25 17:22
Discharge Date and Time
Discharge Date/Time: 01/15/25 18:38
Print Language: UPPER SORBIAN
== END 2025-01-15 18:38 | disposition home or self-care (01) ==
LOC: EMR 14:12
PROVIDERS: Emergency Medicine; CONSULT PHYSICIAN Radiology Diagnostic Radiology; EMERGENCY PHYSICIAN Emergency Medicine; FAMILY PHYSICIAN Family Medicine
DX: J90 Pleural effusion, not elsewhere classified (principal); K76.9 Liver disease, unspecified; E03.9 Hypothyroidism, unspecified; R10.9 Unspecified abdominal pain; Z99.81 Dependence on supplemental oxygen
CPT/HCPCS: 99285; 32555; 71045; 71046; 80053; 83880; 84484; 85025; 93005

== ENCOUNTER 2025-01-29 09:50 | Emergency (ER) | payer OTHER, SELFPAY ==
[2025-01-29] VITALS (7 sets, daily range): BP systolic 76–121; BP diastolic 41–56; BMI 16.2
--- NOTE | 2025-01-29 12:19 | ED.GENMED ---
History of Present Illness
General
Chief Complaint: Breathing Problem
Time Seen by Provider: 01/29/25 11:55
History of Present Illness
History of Present Illness:
79-year-old female with history of primary biliary cirrhosis presents to the emergency department for evaluation of shortness of breath. She has required thoracentesis on multiple occasions this month due to recurrent right pleural effusion. She
states her lung feels full of fluid once again. She denies any chest pain, fevers, chills, or sweats. She is not on anticoagulant
Past History
Past History
ED Past Medical History: Hypothyroidism and Other (Primary biliary cirrhosis, GI bleed, Crohn's disease)
Social History
Tobacco: Non-smoker
Alcohol: None
Drug: None
Personal:
Living: with family
Review of Systems
Review of Systems
Allergies reviewed?: Yes
All Other Systems: ROS reviewed and negative except as documented in HPI and ROS
Phy Exam
Physical Exam
Physical Exam:
GEN: Well appearing, NAD, WDWN
HEENT: Oral mucosa moist, no scleral icterus
Cardiac: Regular rate and rhythm, no murmurs
Lung: No respiratory distress, no tachypnea, markedly diminished right-sided breath sounds
MSK: No gross deformity or injuries
Skin: Good color, no pallor or jaundice, no rashes
Neuro: AO x3, moves all extremities freely
Psych: Calm, cooperative
Scores
Heart Failure Risk
Heart Failure Risk Score: Not Applicable
Course
Orders/Labs/Results
Orders:
Orders
01/29/25 09:55
CR Chest - 2 Views Urgent
Comment:
Reason For Exam: soob
01/29/25 12:37
IR[facility] CONSULT Urgent
Consulting Provider: Jose Juan Lino
Was physician already notified: Yes
Procedure being ordered, including laterality if applicable: R thoracentesis
Acknowledgement that appropriate orders are entered: Yes
01/29/25 12:51
Basic Metabolic Panel Urgent
Complete Blood Count/No Diff Urgent
01/29/25 13:29
CR Chest Single View Urgent
Comment:
Reason For Exam: post right thoracentesis
01/29/25 13:30
Body Fluid Glucose Routine
Fluid Source: Pleural
Date Specimen was Collected: 01/29/25
Time Specimen was Collected: 13:28
Body Fluid LDH Routine
Fluid Source: Pleural
Date Specimen was Collected: 01/29/25
Time Specimen was Collected: 13:28
Body Fluid Protein Routine
Fluid Source: Pleural
Date Specimen was Collected: 01/29/25
Time Specimen was Collected: 13:28
Fluid Culture with Gram Stain Routine
MICHELLE Source: Pleural Fluid
Specimen Description:
Date Specimen was Collected: 01/29/25
Time Specimen was Collected: 13:28
Comment: post procedure
01/29/25 14:34
Electrocardiogram (*1) Urgent
Reason for Study: Chest Pain
EKG- Treatment ONCE
Abnormal Lab Results
01/29/25
12:51
WBC 3.5 L 10^3/uL
(4.8-10.8)
RBC 3.53 L 10^6/uL
(4.20-5.40)
Hgb 10.5 L g/dL
(12.0-16.0)
Hct 32.2 L %
(37.0-47.0)
MCHC 32.6 L g/dL
(33.0-37.0)
RDW 15.9 H %
(11.5-14.5)
Plt Count 88 L 10^3/uL
(130-400)
MPV 12.1 H fL
(7.4-10.4)
Chloride 111 H mmol/L
(98-107)
Glucose 104 H mg/dl
(70-99)
01/29/25 12:51
01/29/25 12:51
Vital Signs
Initial and Last Documented VS:
Initial Vital Signs
Temp Pulse Resp BP Pulse Ox
97.4 F 75 16 102/45 96
01/29/25 09:51 01/29/25 09:51 01/29/25 09:51 01/29/25 09:51 01/29/25 09:51
Last Documented Vital Signs
Temp Pulse Resp BP Pulse Ox
97.8 F 65 23 111/56 96
01/29/25 13:10 01/29/25 15:00 01/29/25 15:00 01/29/25 15:00 01/29/25 14:30
MDM/Problems Addressed
MDM/Problems Addressed:
Chest x-ray reveals a large right pleural effusion. She was sent to IR for thoracentesis which she tolerated well, she did report some chest pain postprocedure and an EKG was obtained but this was unremarkable. Pain rapidly resolved after initial
assessment. She has outpatient pulmonary follow-up in approximately 2 weeks, recommend she request her primary care physician to send her for repeating outpatient thoracentesis to avoid future ER visits if possible
*Pulse Oximetry
SaO2: 96
Nasal Cannula flow liters per minute: 3
Patient hypoxic: no
*Critical Care Note
Total Time (30-74mins, 75-104mins- exclusive of procedures): Not Applicable
ED Attending Note
-
Portions of this chart may have been created with voice recognition software.� Occasional wrong word or��sound alike� substitutions may have occurred due to the inherent limitations of voice recognition software.
Discharge Plan
Departure
Patient Disposition: Home (Routine Discharge)
Date of Disposition: 01/29/25
Time of Disposition: 14:25
Patient with high blood pressure during this ER visit?: No
Discharge Problem:
Recurrent pleural effusion
Instructions: Pleural effusion - Discharge instructions
Prescriptions:
No Action
ropinirole 1 mg Tablet
1 mg PO HS
therapeutic multivitamin Tablet
1 tab PO DAILY
tramadol 50 mg Tablet
50 mg PO Q8HPRN PRN (Reason: moderate pains)
levothyroxine [Synthroid] 75 mcg Tablet
75 mcg PO DAILY
Refresh Optive 0.5-0.9 % Drops
1 drp BOTH EYES TIDPRN PRN (Reason: dry eyes)
levocetirizine 5 mg Tablet
5 mg PO HS
calcium carbonate [Calcium 600] 600 mg calcium (1,500 mg) Tablet
600 mg PO DAILY
ursodiol 300 mg Capsule
300 mg PO TID
cholecalciferol (vitamin D3) [Vitamin D3] 25 mcg (1,000 unit) Tablet
25 mcg PO DAILY
pantoprazole 40 mg tablet,delayed release (DR/EC)
40 mg PO BID
sodium bicarbonate 650 mg Tablet
650 mg PO DAILY Qty: 30 0RF
Iron Supplement
1 tab PO Q48H
ondansetron 8 mg tablet,disintegrating
4 mg PO Q8H PRN (Reason: nausea and vomiting) Qty: 20 0RF
cephalexin 500 mg capsule
500 mg PO Q12H Qty: 8 0RF
Referrals:
Nelson Narayan DO [Family Provider, Family Practice]
Activity Restrictions/Additional Instructions:
Follow-up with your pulmonary doctor to discuss further plan for managing these recurrent fluid buildup that may avoid future ER visits
Interventions
Interventions:
*Risk Screen - Suicide Last Done: 01/29/25 09:53
*General Assessment Last Done: 01/29/25 12:04
*Neglect/Abuse Screening Last Done: 01/29/25 09:53
*ED- Fall Risk Assessment Last Done: 01/29/25 12:04
*ED COVID-19 Vaccine History Last Done: 01/29/25 12:05
*Nursing Disposition Last Done: 01/29/25 15:13
ED- Cardiac Assessment Last Done: 01/29/25 12:18
ED- Pulmonary Assessment Last Done: 01/29/25 12:18
Discharge Date and Time
Discharge Date/Time: 01/29/25 15:13
Print Language: ANGOLAN
[2025-01-29 13:18] LABS: Blood Urea Nitrogen 17 mg/dl (7-17); Calcium 8.5 mg/dl (8.4-10.2); Carbon Dioxide 26 mmol/L (22-30); Chloride 111 mmol/L (98-107); Estimated Creatinine Clearance 45 ml/min; Glucose 104 mg/dl (70-99); Sodium 140 mmol/L (135-145); eGFR > 60.00
[2025-01-29 13:49] LABS: Hematocrit 32.2 % (37.0-47.0); Hemoglobin 10.5 g/dL (12.0-16.0); Mean Corp Hgb Conc. 32.6 g/dL (33.0-37.0); Mean Corpuscular Volume 91.2 fL (81.0-99.0); Platelet Count 88 10^3/uL (130-400); Red Cell Dist. Width 15.9 % (11.5-14.5)
== END 2025-01-29 15:13 | disposition home or self-care (01) ==
LOC: EMR 09:50
PROVIDERS: Physician Assistant; CONSULT PHYSICIAN Radiology Diagnostic Radiology; EMERGENCY PHYSICIAN Emergency Medicine; FAMILY PHYSICIAN Family Medicine
DX: J90 Pleural effusion, not elsewhere classified (principal); E03.9 Hypothyroidism, unspecified; K74.3 Primary biliary cirrhosis
CPT/HCPCS: 99285; 32555; 71045; 71046; 80048; 82945; 83615; 84157; 85027; 87015; 87070; 87205; 93005